=== PATIENT | female | born 1970 | race Asian ===

== ENCOUNTER 2016-07-11 22:28 | Emergency (ER) | payer SELFPAY ==
[~2016-07-11] VITALS: Ht 165.1 cm; Wt 81.5 kg
[~2016-07-11 22:28] MED LIST: ATEN50TA PO; GLYB5TAB PO; IBUP-1542 PO; LOSA50TA6 PO; MECL25TA2 PO; MTF1000T PO; NITR-58 PO; PHEN-537 PO; PHEN-538 PO; SIME80TA PO
[2016-07-11 23:12] VITALS: Ht 165.1 cm; Wt 81.5 kg
== END 2016-07-12 00:20 | disposition left against medical advice (07) ==
LOC: FTE 22:28
DX: Z53.21 Procedure and treatment not carried out due to patient leaving prior to being seen by health care provider (principal)

== ENCOUNTER 2016-07-23 04:38 | Emergency (ER) | payer OTHER ==
[2015-03-05 14:59] VITALS: TEMP 98.2
[2016-01-13 08:23] VITALS: BP 167/72; PULSE 72; RESP 18
[~2016-07-23] VITALS: Ht 165.1 cm; Wt 81.8 kg
[2016-07-23 04:41] VITALS: Ht 165.1 cm; Wt 81.8 kg
[2016-07-23 05:22] LABS: URINE BLOOD (Dip) POC 2+ (NEGATIVE)
--- NOTE | 2016-07-23 05:26 | ERD ---
ER Documentation Chief Complaint Date/Time DATE: 07/23/16 TIME: 05:24 Chief Complaint PAINFUL AND BURNING URINATION X 1 DAY HPI 46-year-old female presents here in emergency department for complaint of dysuria, urinary urgency and frequency started today. Patient is complaining of pain upon urination, burning pain, 4/10 scale, not better or worse with anything. Patient denies any vaginal itching or vaginal discharge. Patient denies any flank pain. Patient denies abdominal pain. Patient denies any fever or chills. ROS All systems reviewed and are negative except as per history of present illness. Medications Home Meds Active Scripts Phenazopyridine Hcl* (Pyridium*) 200 Mg Tab, 200 MG PO TID Y for URINARY PAIN, # 6 TAB Prov:TERE GONZALES NP 07/23/16 Ciprofloxacin Hcl* (Ciprofloxacin Hcl*) 500 Mg Tablet, 500 MG PO BID for 10 Days , TAB Prov:TERE GONZALES NP 07/23/16 Phenazopyridine Hcl* (Pyridium*) 200 Mg Tab, 200 MG PO TID Y for URINARY PAIN, # 6 TAB Prov:MARIAN LAGUNAS MD 01/13/16 Nitrofurantoin Monohyd Macrocr* (Macrobid*) 100 Mg Capsr, 100 MG PO BID for 7 Days, CAP Prov:MARIAN LAGUNAS MD 01/13/16 Ibuprofen* (Motrin*) 600 Mg Tab, 600 MG PO Q6, #20 TAB Prov:SAIGE SALEH MD 03/05/15 Simethicone* (Anti-Gas/80*) 80 Mg Tab.chew, 80 MG PO Q6H Y for DISTENSION/GAS/ BLOATING for 10 Days, TAB.CHEW Prov:SCOTT BROWN DO 12/25/14 Phenazopyridine Hcl* (Pyridium*) 100 Mg Tab, 100 MG PO TID Y for PAIN LEVEL 1-5 , #8 TAB Prov:SCOTT BROWN DO 12/25/14 Nitrofurantoin Monohyd Macrocr* (Macrobid*) 100 Mg Capsr, 100 MG PO HS for 7 Days Prov:MICHAELA MURGUIA MD 12/21/14 Meclizine Hcl* (Antivert*) 25 Mg Tablet, 25 MG PO Q6H Y for ANXIETY, #20 TAB Prov:MICHAELA MURGUIA MD 12/21/14 Reported Medications Metformin* (Glucophage*) 1,000 Mg Tablet, 1000 MG PO BID, TAB 07/01/14 Losartan Potassium* (Losartan Potassium*) 50 Mg Tablet, 50 MG PO BID, TAB 07/01/14 Atenolol* (Atenolol*) 50 Mg Tablet, 50 MG PO DAILY, TAB 07/01/14 Glyburide* (Diabeta*) 5 Mg Tablet, 5 MG PO BID 11/01/10 Allergies Allergies: Coded Allergies: No Known Allergies (Verified Allergy, Mild, 03/05/15) PMhx/Soc History of Surgery: Yes (cholecystectomy) Anesthesia Reaction: No Hx Neurological Disorder: No Hx Respiratory Disorders: No Hx Cardiac Disorders: No Hx Psychiatric Problems: No Hx Miscellaneous Medical Probl: Yes (HTN, DM II) Hx Alcohol Use: No Hx Substance Use: No Hx Tobacco Use: No Smoking Status: Never smoker FmHx Family History: No coronary disease, No diabetes, No other Physical Exam Vitals Vital Signs Date Time Temp Pulse Resp B/P Pulse Ox O2 Delivery O2 Flow Rate FiO2 07/23/16 04:41 97.2 84 20 189/88 100 Physical Exam GENERAL: The patient is well developed and appropriate for usual state of health, in no apparent distress. CHEST: Clear to auscultation bilaterally. There are no rales, wheezes or rhonchi. HEART: Regular rate and rhythm. No murmurs, clicks, rubs or gallops. No S3 or S4. ABDOMEN: Soft, nontender and nondistended. Good bowel sounds. No rebound or guarding. No gross peritonitis. No gross organomegaly or masses. No Andersen sign or McBurney point tenderness. BACK: No midline or flank tenderness. EXTREMITIES: Equal pulses bilaterally. There is no peripheral clubbing, cyanosis or edema. No focal swelling or erythema. Full range of motion. Grossly neurovascularly intact. NEURO: Alert and oriented. Cranial nerves 2-12 intact. Motor strength in all 4 extremities with 5/5 strength. Sensation grossly intact. Normal speech and gait. SKIN: There is no apparent rash or petechia. The skin is warm and dry. HEMATOLOGIC AND LYMPHATIC: There is no evidence of excessive bruising or lymphedema. No gross cervical, axillary, or inguinal lymphadenopathy. Results 24 hrs Laboratory Tests Test 07/23/16 05:25 Bedside Urine Blood 2+ Bedside Urine Glucose (UA) 0.1% Bedside Urine Ketones (LAB) Negative Bedside Urine Leukocyte Esterase (L 1+ Bedside Urine Nitrite (LAB) Negative Bedside Urine Protein (LAB) 1+ Bedside Urine pH (LAB) 6.5 Current Medications Medications (Trade) Dose Ordered Sig/Avel Route PRN Reason Start Time Stop Time Status Last Admin Dose Admin Phenazopyridine HCl (Pyridium) 200 mg ONCE ONCE PO 07/23/16 06:00 07/23/16 06:01 UNV Procedures/MDM Medical Decision Making: Patients symptoms are consistent with urinary tract infection. There is low suspicion for pyelonephritis. There is low suspicion for abdominal emergencies at this time. Patients abdominal exam is normal. There is low suspicion for sepsis. Patient appears well and is hemodynamically stable. Prescription: Ciprofloxacin, Pyridium, is advised to follow-up with primary care doctor in 3 days for reevaluation symptoms. Patient is advised to return to emergency department for any worsening symptoms. Departure Diagnosis: Primary Impression: Cystitis Condition: Stable Patient Instructions: Cystitis TERE GONZALES NP Jul 23, 2016 05:26
[2016-07-23] MEDS ORDERED: CIPR500T4 PO (05:31)
[2016-07-23] MEDS ORDERED: PHEN-538 PO (05:31)
[2016-07-23] MEDS ORDERED: PHENAZOPYRIDINE 100 MG TAB PO ONE (06:00)
== END 2016-07-23 05:59 | disposition home or self-care (01) ==
LOC: FTE 04:38
DX: N30.90 Cystitis, unspecified without hematuria (principal); I10 Essential (primary) hypertension; E11.9 Type 2 diabetes mellitus without complications; Z79.84 Long term (current) use of oral hypoglycemic drugs
CPT/HCPCS: 81003; Z7502; Z7610; 99283

== ENCOUNTER 2016-10-10 21:15 | Emergency (ER) | payer OTHER ==
[~2016-10-10] VITALS: Ht 165.1 cm; Wt 84.0 kg
[~2016-10-10 21:15] MED LIST changes: +CIPR500T4 PO
[2016-10-10 21:30] VITALS: Ht 165.1 cm; Wt 84.0 kg
[2016-10-10] MEDS ORDERED: morphine 2 MG INJ IV STA (22:20)
[2016-10-10] MEDS ORDERED: SOD CHLORIDE 0.9% 1,000 ML IV STA (22:20)
--- NOTE | 2016-10-10 22:24 | ERD ---
ER Documentation Chief Complaint Date/Time DATE: 10/10/16 TIME: 22:21 Chief Complaint CWP with epigastric pain. radiating to the back left side. HPI This 46-year-old female presents with epigastric pain that she says is not particularly worse in her chest. Her main pain is bilateral lower back pain/ flank with burning on urination. She does have some suprapubic pain without any increase of pain when she pushes on it. She denies fevers and chills. He denies shortness of breath. She does frequently get urinary tract infections. ROS All systems reviewed and are negative except as per history of present illness. Medications Home Meds Active Scripts Phenazopyridine Hcl* (Pyridium*) 200 Mg Tab, 200 MG PO TID Y for URINARY PAIN, # 6 TAB Prov:TERE GONZALES NP 07/23/16 Ciprofloxacin Hcl* (Ciprofloxacin Hcl*) 500 Mg Tablet, 500 MG PO BID for 10 Days , TAB Prov:TERE GONZALES NP 07/23/16 Phenazopyridine Hcl* (Pyridium*) 200 Mg Tab, 200 MG PO TID Y for URINARY PAIN, # 6 TAB Prov:MARIAN LAGUNAS MD 01/13/16 Nitrofurantoin Monohyd Macrocr* (Macrobid*) 100 Mg Capsr, 100 MG PO BID for 7 Days, CAP Prov:MARIAN LAGUNAS MD 01/13/16 Ibuprofen* (Motrin*) 600 Mg Tab, 600 MG PO Q6, #20 TAB Prov:SAIGE SALEH MD 03/05/15 Simethicone* (Anti-Gas/80*) 80 Mg Tab.chew, 80 MG PO Q6H Y for DISTENSION/GAS/ BLOATING for 10 Days, TAB.CHEW Prov:SCOTT BROWN DO 12/25/14 Phenazopyridine Hcl* (Pyridium*) 100 Mg Tab, 100 MG PO TID Y for PAIN LEVEL 1-5 , #8 TAB Prov:SCOTT BROWN DO 12/25/14 Nitrofurantoin Monohyd Macrocr* (Macrobid*) 100 Mg Capsr, 100 MG PO HS for 7 Days Prov:MICHAELA MURGUIA MD 12/21/14 Meclizine Hcl* (Antivert*) 25 Mg Tablet, 25 MG PO Q6H Y for ANXIETY, #20 TAB Prov:MICHAELA MURGUIA MD 12/21/14 Reported Medications Metformin* (Glucophage*) 1,000 Mg Tablet, 1000 MG PO BID, TAB 07/01/14 Losartan Potassium* (Losartan Potassium*) 50 Mg Tablet, 50 MG PO BID, TAB 07/01/14 Atenolol* (Atenolol*) 50 Mg Tablet, 50 MG PO DAILY, TAB 07/01/14 Glyburide* (Diabeta*) 5 Mg Tablet, 5 MG PO BID 11/01/10 Allergies Allergies: Coded Allergies: No Known Allergies (Unverified Allergy, Mild, 10/10/16) PMhx/Soc History of Surgery: Yes (cholecystectomy) Anesthesia Reaction: No Hx Neurological Disorder: No Hx Respiratory Disorders: No Hx Cardiac Disorders: No Hx Psychiatric Problems: No Hx Miscellaneous Medical Probl: Yes (HTN, DM II) Hx Alcohol Use: No Hx Substance Use: No Hx Tobacco Use: No Smoking Status: Never smoker Physical Exam Vitals Vital Signs Date Time Temp Pulse Resp B/P Pulse Ox O2 Delivery O2 Flow Rate FiO2 10/10/16 21:30 98.1 78 20 200/92 100 Physical Exam Const: [] No distress, smiling during history giving Head: Atraumatic Eyes: Normal Conjunctiva ENT: Normal External Ears, Nose and Mouth. Neck: Full range of motion..~ No meningismus. Resp: Clear to auscultation bilaterally Cardio: Regular rate and rhythm, no murmurs Abd: Soft, no palpable tenderness in any quadrant,, non distended. Normal bowel sounds Skin: No petechiae or rashes Back: No midline or flank tenderness, mild paraspinal bilateral back muscle tenderness and spasm Ext: No cyanosis, or edema Neur: Awake and alert and oriented 3, no focal deficits Psych: Normal Mood and Affect LUIS BRAR DO October 10, 2016 22:24
[2016-10-10] MEDS ORDERED: ACET-141 PO (22:26)
[2016-10-10] MEDS ORDERED: FLUT16SP17 NASAL (22:26)
[2016-10-10] MEDS ORDERED: OMEP20CA16 PO (22:26)
[2016-10-10 22:54] LABS: ADD UMIC NO; URINE BILIRUBIN (Dip) NEGATIVE (NEGATIVE); URINE BLOOD (Dip) NEGATIVE (NEGATIVE); URINE COLOR LT. YELLOW (YELLOW); URINE KETONES (Dip) NEGATIVE (NEGATIVE); URINE LEUKOCYTE ESTERASE (Dip) NEGATIVE (NEGATIVE); URINE NITRITE (Dip) NEGATIVE (NEGATIVE); URINE TOTAL PROTEIN (Dip) NEGATIVE (NEGATIVE); URINE UROBILINOGEN (Dip) 0.2 E.U./dL (0.1-1.0)
[2016-10-10] MEDS ORDERED: IBUPROFEN 600 MG TAB PO ONE (23:00)
[2016-10-10] MEDS ORDERED: HYDROCODONE/APAP (5/325) TAB PO ONE (23:00)
[2016-10-10 23:04] LABS: ADD SCAN DIFF NO
[2016-10-10 23:06] LABS: BASOPHILS % 0.2 % (0.0-2.0); EOSINOPHILS # 0.3 10^3/ul (0.0-0.5); EOSINOPHILS % 2.4 % (0.0-7.0); HEMATOCRIT 31.8 % (37.0-47.0); HEMOGLOBIN 10.8 g/dl (12.0-16.0); LYMPHOCYTES % 35.9 % (15.0-51.0); MEAN CORPUSCULAR HEMOGLOBIN 27.3 pg (29.0-33.0); MEAN CORPUSCULAR VOLUME 80.5 fl (82.0-101.0); MONOCYTES % 9.1 % (0.0-11.0); NEUTROPHIL # 5.8 10^3/ul (1.6-7.5); NEUTROPHILS % 52.1 % (39.0-77.0); PLATELET COUNT 355 10^3/UL (140-415); RED BLOOD COUNT 3.95 10^6/ul (4.20-5.40); RED CELL DISTRIBUTION WIDTH 13.1 % (11.5-14.5); WHITE BLOOD COUNT 11.1 10^3/ul (4.8-10.8)
[2016-10-10 23:21] LABS: ALBUMIN 4.4 g/dl (3.3-4.9)
[2016-10-10 23:22] LABS: POTASSIUM 3.3 mmol/L (3.5-5.1)
[2016-10-10 23:24] LABS: ALBUMIN/GLOBULIN RATIO 1.33; BILIRUBIN,INDIRECT 0.4 mg/dl (0-1.1); BILIRUBIN,TOTAL 0.4 mg/dl (0.2-1.3); CREATININE 0.9 mg/dl (0.44-1.00); TOTAL PROTEIN 7.7 g/dl (6.1-8.1)
[2016-10-10 23:25] LABS: CALCIUM 9.7 mg/dl (8.4-10.2)
--- NOTE | 2016-10-11 00:14 | RADRPT ---
PROCEDURE: XR Abdomen. CLINICAL INDICATION: Abdominal pain. TECHNIQUE: 3 frontal views of the abdomen. COMPARISON: None. FINDINGS: The bowel gas pattern is unremarkable. Cholecystectomy clips are present. There is no bowel obstru ction or free air. There is no organomegaly. There is no abnormal calcification. The osseous stru ctures are unremarkable. IMPRESSION: Unremarkable bowel gas pattern. Status post cholecystectomy. .Fabricio Grubbs MD, Date Time Electronically viewed and signed by .Fabricio Grubbs MD, MD on 10/11/2016 00:13 .T/
[2016-10-11 01:37] VITALS: BP 105/73; PULSE 72; RESP 18
[2016-10-11 01:37] LABS: BACTERIA,URINE RARE; SQUAMOUS EPITHELIAL CELL,UR RARE; URINE RBCS 0-2 /HPF (0)
[2016-10-11] MEDS ORDERED: NAPR-688 PO (02:23)
[2016-10-11] MEDS ORDERED: RANI150T9 PO (02:23)
== END 2016-10-11 02:35 | disposition home or self-care (01) ==
LOC: E/R 21:15
DX: K21.9 Gastro-esophageal reflux disease without esophagitis (principal); R10.13 Epigastric pain; I10 Essential (primary) hypertension; E11.9 Type 2 diabetes mellitus without complications; Z79.84 Long term (current) use of oral hypoglycemic drugs
CPT/HCPCS: 74010; 80053; 81001; 81003; 83690; 85025; 93005; J2270; J7030; Z7610; 36415

== ENCOUNTER 2017-01-02 14:32 | Emergency (ER) | payer OTHER ==
[~2017-01-02] VITALS: Wt 83.5 kg
[~2017-01-02 14:32] MED LIST changes: +ACET-141 PO; -CIPR500T4 PO; +FLUT16SP17 NASAL; +NAPR-688 PO; -NITR-58 PO; +OMEP20CA16 PO; -PHEN-537 PO; -PHEN-538 PO; +RANI150T9 PO; -SIME80TA PO
[2017-01-02] MEDS ORDERED: HYDROCODONE/APAP (5/325) TAB PO ONE (15:00)
[2017-01-02] MEDS ORDERED: PHEN-537 PO (15:04)
[2017-01-02] MEDS ORDERED: NITR-58 PO (15:04)
--- NOTE | 2017-01-02 15:13 | ERD ---
ER Documentation Chief Complaint Date/Time DATE: 01/02/17 TIME: 15:10 Chief Complaint PAIN WITH URINATION HPI 46 year old female comes in with burning with urination, urgency and frequency x 1 day. She has foul-smelling urine, burning when she pees. She has not had any retention, fevers, chills, nausea vomiting, hematuria or flank pain. ROS All systems reviewed and are negative except as per history of present illness. Medications Home Meds Active Scripts Phenazopyridine Hcl* (Pyridium*) 100 Mg Tab, 100 MG PO TID, #8 TAB Prov:JONATHON WILD PA-C 01/02/17 Nitrofurantoin Monohyd Macrocr* (Macrobid*) 100 Mg Capsr, 100 MG PO BID for 7 Days, CAP Prov:JONATHON WILD PA-C 01/02/17 Ranitidine Hcl* (Zantac*) 150 Mg Tablet, 150 MG PO BID Y for EPIGASTRIC PAIN, # 30 TAB Prov:LUIS BRAR DO 10/11/16 Naproxen* (Naproxen*) 500 Mg Tablet, 500 MG PO BID Y for PAIN, #20 TAB Prov:LUIS BRAR DO 10/11/16 Ibuprofen* (Motrin*) 600 Mg Tab, 600 MG PO Q6, #20 TAB Prov:SAIGE SALEH MD 03/05/15 Meclizine Hcl* (Antivert*) 25 Mg Tablet, 25 MG PO Q6H Y for ANXIETY, #20 TAB Prov:MICHAELA MURGUIA MD 12/21/14 Reported Medications Fluticasone Propionate* (Fluticasone Propionate* Nasal) 50 Mcg/[place] - 16 Gm [place].susp, 2 SPRAYS NASAL DAILY, #1 BOTTLE TO EACH NOSTRIL 10/10/16 Acetaminophen* (Acetaminophen*) 500 MG Extra Strength Tablet, 500 MG PO Q4H Y for PAIN AND OR ELEVATED TEMP, TAB 10/10/16 Omeprazole* (Omeprazole*) 20 Mg Capsule.dr, 20 MG PO DAILY, #30 CAP 10/10/16 Metformin* (Glucophage*) 1,000 Mg Tablet, 1000 MG PO BID, TAB 07/01/14 Losartan Potassium* (Losartan Potassium*) 50 Mg Tablet, 50 MG PO BID, TAB 07/01/14 Atenolol* (Atenolol*) 50 Mg Tablet, 50 MG PO DAILY, TAB 07/01/14 Glyburide* (Diabeta*) 5 Mg Tablet, 5 MG PO BID 11/01/10 Allergies Allergies: Coded Allergies: No Known Allergies (Unverified Allergy, Mild, 01/02/17) PMhx/Soc History of Surgery: Yes (cholecystectomy) Anesthesia Reaction: No Hx Neurological Disorder: No Hx Respiratory Disorders: No Hx Cardiac Disorders: No Hx Psychiatric Problems: No Hx Miscellaneous Medical Probl: Yes (HTN, DM II) Hx Alcohol Use: No Hx Substance Use: No Hx Tobacco Use: No Smoking Status: Never smoker Physical Exam Vitals Vital Signs Date Time Temp Pulse Resp B/P Pulse Ox O2 Delivery O2 Flow Rate FiO2 01/02/17 15:33 98.8 75 16 168/76 100 Room Air 01/02/17 14:34 98.2 89 17 195/88 100 Physical Exam General: Well-developed, well-nourished. The patient appears in no acute distress. HEENT: Head is normocephalic, atraumatic. No scleral icterus. Neck: Supple. Nontender. Lungs: Clear to auscultation. Normal air movement. Heart: Regular rate and rhythm. S1 and S2 are normal. No murmurs, gallops, or rubs. Abdomen: Soft, nontender, nondistended. Bowel sounds are normoactive. No CVA tenderness Extremities: No clubbing or cyanosis. Normal pulses. Moving extremities x 4. No weakness. Neurologic: Alert and oriented 3. No focal deficits. Skin: Normal turgor. No rash or lesions. Results 24 hrs Current Medications Medications (Trade) Dose Ordered Sig/Avel Route PRN Reason Start Time Stop Time Status Last Admin Dose Admin Acetaminophen/ Hydrocodone Bitart ([place] (5/325)) 1 tab ONCE ONCE PO 01/02/17 15:00 01/02/17 15:01 DC 01/02/17 14:59 Nitrofurantoin Macrocrystals (Macrobid) 100 mg ONCE ONCE PO 01/02/17 15:30 01/02/17 15:31 DC 01/02/17 15:10 Urine dip results, from the machine (unable to record on EMR): Glucose 2+, ketones negative, blood 3+, pH 5.5, protein 1+, nitrate negative, leukocyte 1+ Procedures/MDM 46-year-old female presents with a urinary tract infection, consistent with cystitis. She has no systemic complaints, signs of kidney stone, pyelonephritis. Patient's blood pressure was elevated (>120/80) but appears stable without evidence of hypertension emergency or urgency. The patient was counseled about the risks of hypertension and urged to pursue outpatient monitoring and therapy within a week with their primary care physician. Departure Diagnosis: Primary Impression: UTI (urinary tract infection) Condition: Good Patient Instructions: Understanding Urinary Tract Infections (UTIs) Additional Instructions: Call your primary care doctor TOMORROW for an appointment during the next 1-2 days.See the doctor sooner or return here if your condition worsens before your appointment time. JONATHON WILD PA-C Jan 02, 2017 15:13
[2017-01-02] MEDS ORDERED: NITROFURANTOIN (SR) 100 MG CAP PO ONE (15:30)
[2017-01-02 15:33] VITALS: BP 168/76; PULSE 75; RESP 16; TEMP 98.8
[2017-01-03] MEDS ORDERED: BISM262O23 PO (20:26)
[2017-01-03] MEDS ORDERED: ONDA8TAB14 PO (20:26)
== END 2017-01-02 15:35 | disposition home or self-care (01) ==
LOC: FTE 14:32
DX: N39.0 Urinary tract infection, site not specified (principal); I10 Essential (primary) hypertension; E11.9 Type 2 diabetes mellitus without complications; Z79.84 Long term (current) use of oral hypoglycemic drugs
CPT/HCPCS: Z7502; Z7610; 99283

== ENCOUNTER 2017-01-03 18:57 | Emergency (ER) | payer OTHER ==
[~2017-01-03] VITALS: Ht 167.6 cm; Wt 81.0 kg
[~2017-01-03 18:57] MED LIST changes: +NITR-58 PO; +PHEN-537 PO
[2017-01-03 19:04] VITALS: Ht 167.6 cm; Wt 81.0 kg
[2017-01-03] MEDS ORDERED: ONDANSETRON (ODT) 4 MG TAB ODT STA (19:45)
[2017-01-03 20:10] LABS: ADD UMIC YES; UR ASCORBIC ACID NEGATIVE (NEGATIVE); UR BILIRUBIN (Dip) NEGATIVE (NEGATIVE); UR BLOOD (Dip) NEGATIVE (NEGATIVE); UR CLARITY CLEAR (CLEAR); UR COLOR AMBER (YELLOW); UR GLUCOSE (Dip) 3+ mg/dL (NEGATIVE); UR KETONES (Dip) TRACE mg/dL (NEGATIVE); UR LEUKOCYTE ESTERASE (Dip) NEGATIVE Leu/ul (NEGATIVE); UR NITRITE (Dip) POSITIVE (NEGATIVE); UR RBC 0 /HPF (0-5); UR SPECIFIC GRAVITY (Dip) 1.009 (1.003-1.030); UR TOTAL PROTEIN (Dip) NEGATIVE (NEGATIVE); UR UROBILINOGEN (Dip) 1+ mg/dL (NEGATIVE)
[2017-01-03] MEDS ORDERED: SOD CHLORIDE 0.9% 1,000 ML IV STA (20:15)
--- NOTE | 2017-01-03 20:25 | ERD ---
ER Documentation Chief Complaint Date/Time DATE: 01/03/17 TIME: 20:22 Chief Complaint mid abd pain w/ diarrhea and vomiting x 2 days (SAIGE YAO MD) HPI This 46-year-old female presents with vomiting diarrhea since yesterday. He was seen here yesterday and diagnosed with UTI. She was prescribed Macrobid and Pyridium. She denies fevers the vomit is nonbilious nonbloody there is no blood or mucus in the diarrhea. She has some mild burning epigastric pain as well. There is no history of suspect food or foreign travel. (SAIGE YAO MD) ROS All systems reviewed and are negative except as per history of present illness. (SAIGE YAO MD) Medications Home Meds Active Scripts Bismuth Subsalicylate* (Pepto-Bismol*) 262 Mg/15 Ml Oral.susp, 15 ML PO Q3H Y for DIARRHEA for 4 Days, ML Prov:SAIGE YAO MD 01/03/17 Ondansetron (Ondansetron Odt) 8 Mg Tab.rapdis, 8 MG PO Q6H Y for NAUSEA AND/OR VOMITING, #8 TAB Prov:SAIGE YAO MD 01/03/17 Phenazopyridine Hcl* (Pyridium*) 100 Mg Tab, 100 MG PO TID, #8 TAB Prov:JONATHON WILD PA-C 01/02/17 Nitrofurantoin Monohyd Macrocr* (Macrobid*) 100 Mg Capsr, 100 MG PO BID for 7 Days, CAP Prov:JONATHON WILD PA-C 01/02/17 Ranitidine Hcl* (Zantac*) 150 Mg Tablet, 150 MG PO BID Y for EPIGASTRIC PAIN, # 30 TAB Prov:LUIS BRAR DO 10/11/16 Naproxen* (Naproxen*) 500 Mg Tablet, 500 MG PO BID Y for PAIN, #20 TAB Prov:LUIS BRAR DO 10/11/16 Ibuprofen* (Motrin*) 600 Mg Tab, 600 MG PO Q6, #20 TAB Prov:SAIGE YAO MD 03/05/15 Meclizine Hcl* (Antivert*) 25 Mg Tablet, 25 MG PO Q6H Y for ANXIETY, #20 TAB Prov:MICHAELA MURGUIA MD 12/21/14 Reported Medications Fluticasone Propionate* (Fluticasone Propionate* Nasal) 50 Mcg/[place] - 16 Gm [place].susp, 2 SPRAYS NASAL DAILY, #1 BOTTLE TO EACH NOSTRIL 10/10/16 Acetaminophen* (Acetaminophen*) 500 MG Extra Strength Tablet, 500 MG PO Q4H Y for PAIN AND OR ELEVATED TEMP, TAB 10/10/16 Omeprazole* (Omeprazole*) 20 Mg Capsule.dr, 20 MG PO DAILY, #30 CAP 10/10/16 Metformin* (Glucophage*) 1,000 Mg Tablet, 1000 MG PO BID, TAB 07/01/14 Losartan Potassium* (Losartan Potassium*) 50 Mg Tablet, 50 MG PO BID, TAB 07/01/14 Atenolol* (Atenolol*) 50 Mg Tablet, 50 MG PO DAILY, TAB 07/01/14 Glyburide* (Diabeta*) 5 Mg Tablet, 5 MG PO BID 11/01/10 Allergies Allergies: Coded Allergies: No Known Allergies (Unverified Allergy, Mild, 01/03/17) PMhx/Soc History of Surgery: Yes (cholecystectomy) Anesthesia Reaction: No Hx Neurological Disorder: No Hx Respiratory Disorders: No Hx Cardiac Disorders: No Hx Psychiatric Problems: No Hx Miscellaneous Medical Probl: Yes (HTN, DM II) Hx Alcohol Use: No Hx Substance Use: No Hx Tobacco Use: No Smoking Status: Never smoker (SAIGE YAO MD) Physical Exam Vitals Vital Signs Date Time Temp Pulse Resp B/P Pulse Ox O2 Delivery O2 Flow Rate FiO2 01/03/17 19:04 98.7 80 20 147/65 100 (JOHNIE SARABIA-C) Physical Exam Const: [] Letter, [id number] per Head: Atraumatic Eyes: Normal Conjunctiva ENT: Normal External Ears, Nose and Mouth. Neck: Full range of motion..~ No meningismus. Resp: Clear to auscultation bilaterally Cardio: Regular rate and rhythm, no murmurs Abd: Soft, non tender, non distended. Normal bowel sounds Skin: No petechiae or rashes Back: No midline or flank tenderness Ext: No cyanosis, or edema Neur: Awake and alert Psych: Normal Mood and Affect (ASIGE YAO MD) Result Diagram: 01/03/17201901/03/17 2225 Results 24 hrs Laboratory Tests Test 01/03/17 19:50 01/03/17 20:20 01/03/17 22:25 Urine Color STEVEN Urine Clarity CLEAR Urine pH 7.0 Urine Specific [place] 1.009 Urine Ketones TRACEmg/dL Urine Nitrite POSITIVEmg/dL Urine Bilirubin NEGATIVEmg/dL Urine Urobilinogen 1+mg/dL Urine Leukocyte Esterase NEGATIVELeu/ul Urine Microscopic RBC 0/HPF Urine Microscopic WBC 2/HPF Urine Hemoglobin NEGATIVEmg/dL Urine Glucose 3+mg/dL Urine Total Protein NEGATIVEmg/dl White Blood Count 11.810^3/ul Red Blood Count 3.9610^6/ul Hemoglobin 10.4g/dl Hematocrit 30.7% Mean Corpuscular Volume 77.5fl Mean Corpuscular Hemoglobin 26.3pg Mean Corpuscular Hemoglobin Concent 33.9g/dl Red Cell Distribution Width 12.9% Platelet Count 85851^3/UL Mean Platelet Volume 11.7fl Neutrophils % 65.9% Lymphocytes % 24.7% Monocytes % 8.1% Eosinophils % 0.7% Basophils % 0.1% Nucleated Red Blood Cells % 0.0/100WBC Neutrophils # 7.810^3/ul Lymphocytes # 2.910^3/ul Monocytes # 1.010^3/ul Eosinophils # 0.110^3/ul Basophils # 0.010^3/ul Nucleated Red Blood Cells # 0.010^3/ul Sodium Level 115mmol/L 121mmol/L Potassium Level 3.2mmol/L 3.0mmol/L Chloride Level 73mmol/L 83mmol/L Carbon Dioxide Level 27mmol/L 25mmol/L Anion Gap 18 16 Blood Urea Nitrogen 10mg/dl 9mg/dl Creatinine 0.83mg/dl 0.76mg/dl Glucose Level 255mg/dl 219mg/dl Calcium Level 9.5mg/dl 8.8mg/dl Total Bilirubin 0.7mg/dl Direct Bilirubin 0.00mg/dl Indirect Bilirubin 0.7mg/dl Aspartate Amino Transf (AST/SGOT) 18IU/L Alanine Aminotransferase (ALT/SGPT) 33IU/L Alkaline Phosphatase 115IU/L Total Protein 8.4g/dl Albumin 4.7g/dl Globulin 3.70g/dl Albumin/Globulin Ratio 1.27 Lipase 135U/L Current Medications Medications (Trade) Dose Ordered Sig/Avel Route PRN Reason Start Time Stop Time Status Last Admin Dose Admin Ondansetron HCl 8 mg 8 mg ONCE STAT ODT 01/03/17 19:45 01/03/17 19:46 DC 01/03/17 19:51 Sodium Chloride (NS) 1,000 ml @ 1,000 mls/hr Q1H STAT IV 01/03/17 20:15 01/03/17 21:14 DC 01/03/17 20:33 Famotidine 20 mg 20 mg ONCE ONCE PO 01/03/17 20:30 01/03/17 20:31 DC 01/03/17 20:33 Sodium Chloride (NS) 1,000 ml @ 1,000 mls/hr Q1H ONCE IV 01/03/17 22:00 01/03/17 22:59 DC 01/03/17 21:54 (JOHNIE SARABIA PA-C) Procedures/MDM Urine shows trace ketones positive nitrites and leukocytes. There is 3+ glucose. Patient is given Zofran 8 mg by mouth. Patient presents with vomiting diarrhea of one days duration. Given the findings of ketones and history of diabetes 90 was obtained and patient was given 1 L normal saline IV. CBC and CMP pending and was signed out to ELOISA Sarabia and supervising ER physician. Patient was stable and ambulatory upon last evaluation. Further evaluation and treatment will pending ER course. (SAIGE YAO MD) ED COURSE: The patient was stable throughout ED course. I kept the patient and/or family informed of laboratory and diagnostic imaging results throughout the ED course. She was signed out to me by Dr. Yao, pending blood work. Patient's MEDICAL DECISION MAKING: Patient is a 46-year-old female presents emergency room with vomiting and diarrhea which started today. Patient was seen here yesterday diagnosed with UTI. Vital signs were reviewed. Patient is afebrile. Patient was not hypoxic. She was noted to have a white count of 11.8, hemoglobin of 10.6, hematocrit of 30.7. Patient's sodium was initially noted to be 115. Patient's potassium was noted to be 3.2, glucose of 219, sodium of 115. Urine did show 3+ glucose, trace ketones and positive nitrates. I discussed these findings with my supervising physician Dr. Macdonald who advised me to give the patient a second liter of fluids. Repeat BMP was obtained. Patient's sodium was noted to increase to 121. Dr. Macdonald advised me to discharge the patient if her sodium was above 120. I discussed the patient's blood work findings with the patient and her son. Patient did feel that her symptoms had improved after 2 L of fluids. Patient requested to go home. At this time, patient presentation is most consistent with abdominal pain, nausea, vomiting, diarrhea, hyponatremia. Low suspicion for DKA. Patient will be discharged home per Dr. Yao's instructions with a prescription for Zofran and Pepto-Bismol. DISCHARGE: At this time, patient is stable for discharge and outpatient management. She was provided with a copy of all imaging studies and blood work obtained today. Patient was advised to drink plenty of fluids. I have instructed the patient to follow-up with his/her primary care physician in 1-2 days. I have discussed with the patient the possibility of needing to see a specialist for further workup and imaging studies if symptoms persist. I have instructed the patient to promptly return to the ER for any new or worsening symptoms including increased pain, fever, nausea, vomiting, weakness or LOC. The patient and/or family expressed understanding of and agreement with this plan. All questions were answered. Home care instructions were provided. Disclaimer: Inadvertent spelling and grammatical errors are likely due to EHR/ dictation software use and do not reflect on the overall quality of patient care. Also, please note that the electronic time recorded on this note does not necessarily reflect the actual time of the patient encounter. (JOHNIE SARABIA PA-C) Departure Diagnosis: Primary Impression: Abdominal pain Abdominal location: epigastric Qualified Code: R10.13 - Epigastric pain Additional Impressions: Vomiting and diarrhea Hyponatremia Condition: Stable SAIGE YAO MD Jan 03, 2017 20:25 JOHNIE SARABIA PA-C Jan 03, 2017 23:52
[2017-01-03] MEDS ORDERED: BISM262O23 PO (20:26)
[2017-01-03] MEDS ORDERED: ONDA8TAB14 PO (20:26)
[2017-01-03] MEDS ORDERED: FAMOTIDINE 20 MG TAB PO ONE (20:30)
[2017-01-03 21:09] LABS: BASOPHILS % 0.1 % (0.0-2.0); EOSINOPHILS # 0.1 10^3/ul (0.0-0.5); EOSINOPHILS % 0.7 % (0.0-7.0); HEMATOCRIT 30.7 % (37.0-47.0); HEMOGLOBIN 10.4 g/dl (12.0-16.0); LYMPHOCYTES # 2.9 10^3/ul (0.8-2.9); LYMPHOCYTES % 24.7 % (15.0-51.0); MEAN CORPUSCULAR HEMOGLOBIN 26.3 pg (29.0-33.0); MEAN CORPUSCULAR HGB CONC 33.9 g/dl (32.0-37.0); MEAN CORPUSCULAR VOLUME 77.5 fl (82.0-101.0); MEAN PLATELET VOLUME 11.7 fl (7.4-10.4); MONOCYTES % 8.1 % (0.0-11.0); NEUTROPHIL # 7.8 10^3/ul (1.6-7.5); NEUTROPHILS % 65.9 % (39.0-77.0); PLATELET COUNT 414 10^3/UL (140-415); RED BLOOD COUNT 3.96 10^6/ul (4.20-5.40); RED CELL DISTRIBUTION WIDTH 12.9 % (11.5-14.5); WHITE BLOOD COUNT 11.8 10^3/ul (4.8-10.8)
[2017-01-03 21:28] LABS: ALBUMIN 4.7 g/dl (3.3-4.9); ALBUMIN/GLOBULIN RATIO 1.27; BILIRUBIN,INDIRECT 0.7 mg/dl (0-1.1); BILIRUBIN,TOTAL 0.7 mg/dl (0.2-1.3); CALCIUM 9.5 mg/dl (8.4-10.2); CREATININE 0.83 mg/dl (0.44-1.00); POTASSIUM 3.2 mmol/L (3.5-5.1); TOTAL PROTEIN 8.4 g/dl (6.1-8.1)
[2017-01-03] MEDS ORDERED: SOD CHLORIDE 0.9% 1,000 ML IV ONE (22:00)
[2017-01-03 23:30] LABS: CALCIUM 8.8 mg/dl (8.4-10.2); CREATININE 0.76 mg/dl (0.44-1.00)
[2017-01-03 23:51] VITALS: BP 152/72; PULSE 74; RESP 20; TEMP 98.1
== END 2017-01-03 23:51 | disposition home or self-care (01) ==
LOC: FTE 18:57
DX: R10.13 Epigastric pain (principal); R11.10 Vomiting, unspecified; R19.7 Diarrhea, unspecified; E87.1 Hypo-osmolality and hyponatremia; I10 Essential (primary) hypertension; E11.9 Type 2 diabetes mellitus without complications; Z79.84 Long term (current) use of oral hypoglycemic drugs
CPT/HCPCS: 36415; 80048; 80053; 81001; 83690; 85025; J7030; Z7502; Z7610

== ENCOUNTER 2017-01-13 05:57 | Emergency (ER) | payer OTHER ==
[~2017-01-13] VITALS: Ht 160 cm; Wt 82.0 kg
[~2017-01-13 05:57] MED LIST changes: +BISM262O23 PO; +ONDA8TAB14 PO
[2017-01-13 06:39] VITALS: Ht 160 cm; Wt 82.0 kg
[2017-01-13 08:28] LABS: ADD UMIC NO; UR ASCORBIC ACID NEGATIVE (NEGATIVE); UR BILIRUBIN (Dip) NEGATIVE (NEGATIVE); UR BLOOD (Dip) NEGATIVE (NEGATIVE); UR CLARITY CLEAR (CLEAR); UR COLOR COLORLESS (YELLOW); UR GLUCOSE (Dip) NEGATIVE (NEGATIVE); UR KETONES (Dip) NEGATIVE (NEGATIVE); UR LEUKOCYTE ESTERASE (Dip) NEGATIVE Leu/ul (NEGATIVE); UR NITRITE (Dip) NEGATIVE (NEGATIVE); UR SPECIFIC GRAVITY (Dip) 1.002 (1.003-1.030); UR TOTAL PROTEIN (Dip) NEGATIVE (NEGATIVE); UR UROBILINOGEN (Dip) NEGATIVE (NEGATIVE)
[2017-01-13] MEDS ORDERED: BENZ100C70 PO (08:38)
[2017-01-13] MEDS ORDERED: AZIT250T94 PO (08:38)
--- NOTE | 2017-01-13 08:45 | ERD ---
ER Documentation Chief Complaint Date/Time DATE: 01/13/17 TIME: 08:42 Chief Complaint dysuria x 3 days and cough x 5 days HPI 46-year-old female patient with a past medical history of recurrent urinary tract infections and diabetes presents to the ED complaining of dysuria that started 3 days and a dry cough started 5 days ago. Reports that she does not have any sick contacts. States that she was taking Macrobid for the last 10 days and it did not help with her dysuria. Reports her blood sugar this morning was 125. States that she takes metformin and glyburide. Reports that she has had a previous cholecystectomy. States her last menses was on December 20, 2016. Denies any vaginal bleeding, vaginal discharge, urgency, frequency, hematuria, abdominal pain, nausea, vomiting, diarrhea. ROS All systems reviewed and are negative except as per history of present illness. Medications Home Meds Active Scripts Benzonatate* (Tessalon Perle*) 100 Mg Capsule, 100 MG PO Q8H Y for COUGH, #20 CAP Prov:ENRIQUE MCKEON PA-C 01/13/17 Azithromycin* (Zithromax*) 250 Mg Tablet, 250 MG PO .ZPACK DIRECTED, #6 TAB TAKE 500 MG (2 TABS) THE FIRST DAY THEN 250 MG (1 TAB) DAYS 2-5 Prov:ENRIQUE MCKEON PA-C 01/13/17 Bismuth Subsalicylate* (Pepto-Bismol*) 262 Mg/15 Ml Oral.susp, 15 ML PO Q3H Y for DIARRHEA for 4 Days, ML Prov:SAIGE SALEH MD 01/03/17 Ondansetron (Ondansetron Odt) 8 Mg Tab.rapdis, 8 MG PO Q6H Y for NAUSEA AND/OR VOMITING, #8 TAB Prov:SAIGE SALEH MD 01/03/17 Phenazopyridine Hcl* (Pyridium*) 100 Mg Tab, 100 MG PO TID, #8 TAB Prov:JONATHON WILD PA-C 01/02/17 Nitrofurantoin Monohyd Macrocr* (Macrobid*) 100 Mg Capsr, 100 MG PO BID for 7 Days, CAP Prov:JONATHON WILD PA-C 01/02/17 Ranitidine Hcl* (Zantac*) 150 Mg Tablet, 150 MG PO BID Y for EPIGASTRIC PAIN, # 30 TAB Prov:LUIS BRAR DO 10/11/16 Naproxen* (Naproxen*) 500 Mg Tablet, 500 MG PO BID Y for PAIN, #20 TAB Prov:LUIS BRAR DO 10/11/16 Ibuprofen* (Motrin*) 600 Mg Tab, 600 MG PO Q6, #20 TAB Prov:SAIGE SALEH MD 03/05/15 Meclizine Hcl* (Antivert*) 25 Mg Tablet, 25 MG PO Q6H Y for ANXIETY, #20 TAB Prov:MICHAELA MURGUIA MD 12/21/14 Reported Medications Fluticasone Propionate* (Fluticasone Propionate* Nasal) 50 Mcg/[place] - 16 Gm [place].susp, 2 SPRAYS NASAL DAILY, #1 BOTTLE TO EACH NOSTRIL 10/10/16 Acetaminophen* (Acetaminophen*) 500 MG Extra Strength Tablet, 500 MG PO Q4H Y for PAIN AND OR ELEVATED TEMP, TAB 10/10/16 Omeprazole* (Omeprazole*) 20 Mg Capsule.dr, 20 MG PO DAILY, #30 CAP 10/10/16 Metformin* (Glucophage*) 1,000 Mg Tablet, 1000 MG PO BID, TAB 2 Losartan Potassium* (Losartan Potassium*) 50 Mg Tablet, 50 MG PO BID, TAB 215 Atenolol* (Atenolol*) 50 Mg Tablet, 50 MG PO DAILY, TAB 2 Glyburide* (Diabeta*) 5 Mg Tablet, 5 MG PO BID 11/01/10 Allergies Allergies: Coded Allergies: No Known Allergies (Unverified Allergy, Mild, 01/13/17) PMhx/Soc History of Surgery: Yes (cholecystectomy) Anesthesia Reaction: No Hx Neurological Disorder: No Hx Respiratory Disorders: No Hx Cardiac Disorders: No Hx Psychiatric Problems: No Hx Miscellaneous Medical Probl: Yes (HTN, DM II) Hx Alcohol Use: No Hx Substance Use: No Hx Tobacco Use: No Smoking Status: Never smoker Physical Exam Vitals Vital Signs Date Time Temp Pulse Resp B/P Pulse Ox O2 Delivery O2 Flow Rate FiO2 01/13/17 06:39 97.7 72 18 177/78 100 Physical Exam Const: [id number], well-nourished. In no acute distress. Head: Atraumatic, normocephalic Eyes: Normal Conjunctiva without injection. No purulent discharge. ENT: Normal external ear, nose. Moist oropharynx without tonsillar exudates. Non -erythematous pharynx. Uvula midline. No drooling. No trismus. Neck: No cervical midline tenderness. Full range of motion. No meningismus. No cervical lymphadenopathy. No JVD. Resp: Clear to auscultation bilaterally. No wheezing, rhonchi, rales, or crackles. No accessory muscle use. No retractions. Cardio: Regular rate and rhythm. No murmurs, rubs or gallops. Abd: Soft, nontender, non distended. Normal bowel sounds. No palpable masses. No rebound tenderness. No guarding. Negative McBurney's point. Negative psoas sign. Negative obturator sign. Skin: No petechiae or rashes Back: No midline tenderness. No CVA tenderness. Ext: No cyanosis, or edema. Neur: Awake and alert. Normal gait. Normal coordination. Psych: Normal Mood and Affect Results 24 hrs Laboratory Tests Test 01/13/17 07:03 Urine Color COLORLESS Urine Clarity CLEAR Urine pH 7.0 Urine Specific [place] 1.002 Urine Ketones NEGATIVEmg/dL Urine Nitrite NEGATIVEmg/dL Urine Bilirubin NEGATIVEmg/dL Urine Urobilinogen NEGATIVEmg/dL Urine Leukocyte Esterase NEGATIVELeu/ul Urine Hemoglobin NEGATIVEmg/dL Urine Glucose NEGATIVEmg/dL Urine Total Protein NEGATIVEmg/dl Procedures/MDM 46-year-old female patient with no significant past medical history presents to the ED complaining of dysuria that started 3 days ago as well as a dry cough that started 5 days ago. Patient is afebrile nontoxic appearing. Patient has normal vital signs. A urinalysis was ordered which showed no leukocyte esterase , nitrite, hematuria. Patient did not want a chest x-ray. Patient wanted to try outpatient medication for her cough. Patient likely has a viral upper respiratory infection versus bronchitis. She will be given prescription for Zithromax as well as Tessalon Perles. Patient's physical exam include lungs which were clear to auscultation and a normal pulse oximetry. There is a low suspicion for pneumonia, pneumothorax, mononucleosis, pulmonary embolism, epiglottitis, otitis media, otitis externa, viral/strep pharyngitis, sinusitis, peritonsillar abscess, mastoiditis, retropharyngeal abscess, meningitis, sepsis , acute abdomen or other emergent conditions. Fluids, rest, and symptomatic treatment are recommended for the management of patient's symptoms. Low suspicion for urinary tract infection. Pending urine culture. Low suspicion for gastritis, GERD, peptic ulcer disease, cholecystitis, choledocholithiasis, cholangitis, pancreatitis, appendicitis, bowel obstruction, ileus, volvulus, nephrolithiasis, pyelonephritis, hepatitis, perforated viscus, diverticulitis, abdominal hernia, acute abdomen, mesenteric ischemia or other emergent conditions. Discharge medications: Tessalon Perles, Zithromax Patient was instructed to return to the ED for any new or worsening symptoms. They should otherwise follow up with the primary care provider within 1-2 days for a referral to a urologist. The patient's questions were answered at the time of discharge. Patient understood and agreed with discharge management. Departure Diagnosis: Primary Impression: Dysuria Additional Impression: Cough Condition: Stable Patient Instructions: Bronchitis, Antiobiotic Treatment (Adult), Dysuria, Uncertain Cause (Adult) Referrals: ARYA CM MD, ANDY Y DULA, EUGENE MD [facility] YOU HAVE RECEIVED A MEDICAL SCREENING EXAM AND THE RESULTS INDICATE THAT YOU DO NOT HAVE A CONDITION THAT REQUIRES URGENT TREATMENT IN THE EMERGENCY DEPARTMENT. FURTHER EVALUATION AND TREATMENT OF YOUR CONDITION CAN WAIT UNTIL YOU ARE SEEN IN YOUR DOCTORS OFFICE WITHIN THE NEXT 1-2 DAYS. IT IS YOUR RESPONSIBILITY TO MAKE AN APPOINTMENT FOR FOLOW-UP CARE. IF YOU HAVE A PRIMARY DOCTOR --you should call your primary doctor and schedule an appointment IF YOU DO NOT HAVE A PRIMARY DOCTOR YOU CAN CALL OUR PHYSICIAN REFERRAL HOTLINE AT IF YOU CAN NOT AFFORD TO SEE A PHYSICIAN YOU CAN CHOSE FROM THE FOLLOWING [facility] [address] [facility]. [facility] [address] [facility]. [facility] [address] [facility] [address] [facility]. [facility] [address] [facility]. [facility] [address] [facility]. [facility] YOU HAVE RECEIVED A MEDICAL SCREENING EXAM AND THE RESULTS INDICATE THAT YOU DO NOT HAVE A CONDITION THAT REQUIRES URGENT TREATMENT IN THE EMERGENCY DEPARTMENT. FURTHER EVALUATION AND TREATMENT OF YOUR CONDITION CAN WAIT UNTIL YOU ARE SEEN IN YOUR DOCTORS OFFICE WITHIN THE NEXT 1-2 DAYS. IT IS YOUR RESPONSIBILITY TO MAKE AN APPOINTMENT FOR FOLOW-UP CARE. IF YOU HAVE A PRIMARY DOCTOR --you should call your primary doctor and schedule and appointment IF YOU DO NOT HAVE A PRIMARY DOCTOR YOU CAN CALL OUR PHYSICIAN REFERRAL HOTLINE AT . IF YOU CAN NOT AFFORD TO SEE A PHYSICIAN YOU CAN CHOSE FROM THE FOLLOWING [facility] INSTITUTIONS: [facility] [address] [place] [address] [facility] [address] [place], [place] [id number] [place] [address] [address] [place] [address] [facility] URGENT CARE/SPECIALTIES Additional Instructions: Call your primary care doctor TOMORROW for an appointment during the next 1-2 days for a urologist follow up.See the doctor sooner or return here if your condition worsens before your appointment time. ENRIQUE MCKEON PA-C Jan 13, 2017 08:45
== END 2017-01-13 08:46 | disposition home or self-care (01) ==
LOC: FTE 05:57
DX: R30.0 Dysuria (principal); R05 Cough; E11.9 Type 2 diabetes mellitus without complications; I10 Essential (primary) hypertension; Z79.84 Long term (current) use of oral hypoglycemic drugs
CPT/HCPCS: 81003; 87086; Z7502; 99284

== ENCOUNTER 2017-02-17 01:13 | Emergency (ER) | payer SELFPAY ==
[~2017-02-17] VITALS: Ht 165.1 cm; Wt 85.0 kg
[~2017-02-17 01:13] MED LIST changes: +AZIT250T94 PO; +BENZ100C70 PO
[2017-02-17 01:19] VITALS: Ht 165.1 cm; Wt 85.0 kg
== END 2017-02-17 03:40 | disposition left against medical advice (07) ==
LOC: E/R 01:13
DX: Z53.21 Procedure and treatment not carried out due to patient leaving prior to being seen by health care provider (principal)

== ENCOUNTER 2017-03-26 12:43 | Emergency (ER) | payer OTHER ==
[~2017-03-26] VITALS: Wt 84.1 kg
--- NOTE | 2017-03-26 16:13 | ERD ---
ER Documentation Chief Complaint Chief Complaint BODY PAIN, NECK PAIN, SHAKINESS, MOREIRA, COUGHING HPI 46y/o female patient with no medical history,presents to the emergency department with her daughter c/o cough, fever, chills and generalized arthralgia , that started 2 days ago. pain is dull, rated 6/10, constant. The symptoms are associated with sore throat and right ear pain. Denies nausea, vomiting, diarrhea or abdominal pain. No recent history of similar episodes. Treatment attempted: Tylenol with mild improvement of the symptoms ROS SYSTEMIC symptoms: + fever, + chills, no night sweats, no weight loss EYE symptoms: No blurred vision, no eye discharge OTOLARYNGEAL symptoms: No hearing loss. No ear pain, no sore throat CARDIOVASCULAR symptoms: No chest pain or discomfort, no palpitations. PULMONARY symptoms: No dyspnea, + cough, no wheezing. GASTROINTESTINAL symptoms: No abdominal pain, no nausea, no vomiting, no diarrhea MUSCULOSKELETAL symptoms: + arthralgias, + muscle aches. NEUROLOGY symptoms: No confusion, no syncope, no numbness or tingling. SKIN no rashes All systems reviewed and are negative except as per history of present illness. Medications Home Meds Active Scripts Promethazine HCl/Codeine (Prometh-Codein 6.25-10 mg/5 ml) 5 Ml Syrup, 5 ML PO QHS for 5 Days, #120 ML Prov:CLEOPATRA OROURKE MD 03/26/17 Ibuprofen* (Motrin*) 600 Mg Tab, 600 MG PO Q8, #30 TAB Prov:CLEOPATRA OROURKE MD 03/26/17 Azithromycin* (Zithromax*) 250 Mg Tablet, 250 MG PO .JersonPAPHUC DIRECTED, #6 TAB TAKE 500 MG (2 TABS) THE FIRST DAY THEN 250 MG (1 TAB) DAYS 2-5 Prov:CLEOPATRA OROUKRE MD 03/26/17 Benzonatate* (Tessalon Perle*) 100 Mg Capsule, 100 MG PO Q8H Y for COUGH, #20 CAP Prov:ENRIQUE MCKEON PA-C 01/13/17 Azithromycin* (Zithromax*) 250 Mg Tablet, 250 MG PO .ZPAPHUC DIRECTED, #6 TAB TAKE 500 MG (2 TABS) THE FIRST DAY THEN 250 MG (1 TAB) DAYS 2-5 Prov:ENRIQUE MCKEON PA-C 01/13/17 Bismuth Subsalicylate* (Pepto-Bismol*) 262 Mg/15 Ml Oral.susp, 15 ML PO Q3H Y for DIARRHEA for 4 Days, ML Prov:SAIGE SALEH MD 01/03/17 Ondansetron (Ondansetron Odt) 8 Mg Tab.rapdis, 8 MG PO Q6H Y for NAUSEA AND/OR VOMITING, #8 TAB Prov:SAIGE SALEH MD 01/03/17 Phenazopyridine Hcl* (Pyridium*) 100 Mg Tab, 100 MG PO TID, #8 TAB Prov:JONATHON WILD PA-C 01/02/17 Nitrofurantoin Monohyd Macrocr* (Macrobid*) 100 Mg Capsr, 100 MG PO BID for 7 Days, CAP Prov:JONATHON WILD PA-C 01/02/17 Ranitidine Hcl* (Zantac*) 150 Mg Tablet, 150 MG PO BID Y for EPIGASTRIC PAIN, # 30 TAB Prov:LUIS BRAR DO 10/11/16 Naproxen* (Naproxen*) 500 Mg Tablet, 500 MG PO BID Y for PAIN, #20 TAB Prov:LUIS BRAR DO 10/11/16 Ibuprofen* (Motrin*) 600 Mg Tab, 600 MG PO Q6, #20 TAB Prov:SAIGE SALEH MD 03/05/15 Meclizine Hcl* (Antivert*) 25 Mg Tablet, 25 MG PO Q6H Y for ANXIETY, #20 TAB Prov:MICHAELA MURGUIA MD 12/21/14 Reported Medications Fluticasone Propionate* (Fluticasone Propionate* Nasal) 50 Mcg/[place] - 16 Gm [place].susp, 2 SPRAYS NASAL DAILY, #1 BOTTLE TO EACH NOSTRIL 10/10/16 Acetaminophen* (Acetaminophen*) 500 MG Extra Strength Tablet, 500 MG PO Q4H Y for PAIN AND OR ELEVATED TEMP, TAB 10/10/16 Omeprazole* (Omeprazole*) 20 Mg Capsule.dr, 20 MG PO DAILY, #30 CAP 10/10/16 Metformin* (Glucophage*) 1,000 Mg Tablet, 1000 MG PO BID, TAB 07/01/14 Losartan Potassium* (Losartan Potassium*) 50 Mg Tablet, 50 MG PO BID, TAB 07/01/14 Atenolol* (Atenolol*) 50 Mg Tablet, 50 MG PO DAILY, TAB 07/01/14 Glyburide* (Diabeta*) 5 Mg Tablet, 5 MG PO BID 11/01/10 Allergies Allergies: Coded Allergies: No Known Allergies (Unverified Allergy, Mild, 01/13/17) PMhx/Soc History of Surgery: Yes (cholecystectomy) Anesthesia Reaction: No Hx Neurological Disorder: No Hx Respiratory Disorders: No Hx Cardiac Disorders: No Hx Psychiatric Problems: No Hx Miscellaneous Medical Probl: Yes (HTN, DM II) Hx Alcohol Use: No Hx Substance Use: No Hx Tobacco Use: No Physical Exam Vitals Vital Signs Date Time Temp Pulse Resp B/P Pulse Ox O2 Delivery O2 Flow Rate FiO2 03/26/17 12:49 100.0 96 20 184/90 100 Physical Exam Patient is in mild acute distress, vital signs stable. Alert and fully oriented. EYES: PERRLA, EOMI, Sclera and conjunctiva appear normal. EARS: Canals clear, tympanic membranes WNL THROAT: Erythematous oropharynx NECK: Supple, No lymphadenopathy. Full ROM without pain or tenderness. HEART: RRR, no rubs, murmurs, clicks or gallops. LUNGS: Bilateral rhonchi ABDOMEN: Soft, non-tender without masses or hepatosplenomegaly. EXTREMITIES: No edema bilaterally. MUSC: Full ROM, no deformity, normal back exam Procedures/MDM 46y/o female patient previously healthy, presents to the ED c/o worsening of upper respiratory symptoms for 3 days. Vital signs stable, Physical exam showed erythematous oropharynx and bilateral rhonchi. Differential diagnosis include but not limited to: Viral upper respiratory infection, bronchitis, asthma, influenza, pneumonia. Physical examination and clinical presentation consistent most likely with cough and fever with bronchitis. During the ED course the patient remained stable Medical impression discussed with patient who agrees with management. The patient will be discharged home with a Rx for azithromycin, ibuprofen and promethazine with codeine Side effects of prescribed narcotic medications (drowsiness, constipation, habituation) were reviewed. Side effects of prescribed NSAID medication (GI distress, edema, bleeding, HTN) were reviewed. If symptoms persist, worsen or new symptoms develop, then patient is instructed to follow-up with the primary care provider. If the patient is unable to see the primary care provider, then return to the ED immediately. Departure Diagnosis: Primary Impression: Fever Additional Impression: Cough Condition: Stable CLEOPATRA OROURKE MD Mar 26, 2017 16:13
[2017-03-26] MEDS ORDERED: IBUP-1542 PO (16:23)
[2017-03-26] MEDS ORDERED: PROM5SYR2 PO (16:23)
[2017-03-26] MEDS ORDERED: AZIT250T94 PO (16:23)
== END 2017-03-26 16:30 | disposition home or self-care (01) ==
LOC: FTE 12:43
DX: R50.9 Fever, unspecified (principal); R05 Cough; E11.9 Type 2 diabetes mellitus without complications; I10 Essential (primary) hypertension; Z79.84 Long term (current) use of oral hypoglycemic drugs
CPT/HCPCS: 99284

== ENCOUNTER 2017-07-17 09:47 | Emergency (ER) | END 2017-07-17 11:15 | disposition home or self-care (01) ==

== ENCOUNTER 2017-12-05 08:54 | Emergency (ER) | END 2017-12-05 12:16 | disposition home or self-care (01) ==

== ENCOUNTER 2018-03-07 19:55 | Emergency (ER) | END 2018-03-07 20:27 | disposition home or self-care (01) ==

== ENCOUNTER 2018-09-10 17:56 | Emergency (ER) | payer OTHER ==
[~2018-09-10] VITALS: Ht 165.1 cm; Wt 85.5 kg
[~2018-09-10 17:56] MED LIST changes: +AZIT250T PO; -AZIT250T94 PO; +BENZ-6 PO; -BENZ100C70 PO; +FIORICET PO; +FLUT9.9S NASAL; +LOSA50TA14 PO; -LOSA50TA6 PO; +NAPR-985 PO; +OSEL75CA23 PO; +PHEN-538 PO; +PROM5SYR2 PO; +RANI150T35 PO; -RANI150T9 PO
[2018-09-10 17:57] VITALS: Ht 165.1 cm; Wt 85.5 kg
--- NOTE | 2018-09-10 20:15 | ERD ---
ER Documentation Chief Complaint Chief Complaint FEVER, WEAKNESS, BODY ACHES HPI This is a 48-year-old female who presents to emerge department with multiple complaints including dysuria, cough and colds for about 3 days, mild weakness. Denies headache, head injury, loss of consciousness, dizziness, neck pain, neck stiffness, throat pain, difficulty swallowing, difficulty breathing lying flat, shoulder pain, chest pain, back pain, abdominal pain, nausea, vomiting, constipation, diarrhea, urinary symptoms, or possibility being , loss of bowel and bladder control, trauma, injury, falls, difficulty walking due to pain, numbness or tingling sensation, calf pain, recent travel, recent major surgery in the last 3 weeks, calf pain, recent long travel, recent exposure to any illness, recent antibiotic use in the last 3 months, fever, chills, seizures. Past medical history: Hypertension. Surgical history: Social: Denies smoking, use of alcoholic beverages, use of illegal drugs.. ROS All systems reviewed and are negative except as per history of present illness. Medications Home Meds Active Scripts Acetaminophen* (Tylophen*) 500 Mg Capsule, 1 CAP PO Q6H PRN for PAIN AND OR ELEVATED TEMP, #20 CAP Prov:INGRIS PINTO 09/10/18 Ondansetron Hcl* (Zofran*) 4 Mg Tablet, 4 MG PO Q8H PRN for NAUSEA AND/OR VOMITING, #30 TAB Prov:INGRIS PINTO F 09/10/18 Ibuprofen* (Motrin*) 600 Mg Tab, 600 MG PO Q6H PRN for PAIN AND OR ELEVATED TEMP, #30 TAB Prov:PASILABANINGRIS F 09/10/18 Acetamin/Butalbital/Caffeine* (Fioricet*) [id number] Tab, 1 TAB PO Q6H PRN for PAIN, #30 TAB Prov:IVONNE MUHAMMAD PA-C 06/30/18 Fluticasone Propionate (Flonase Allergy Relief) 9.9 Ml [place].susp, 1 SPRAY NASAL BID, #1 BOTTLE TO EACH NOSTRIL Prov:MARIAN LAGUNAS MD 03/07/18 Phenazopyridine Hcl* (Pyridium*) 200 Mg Tab, 200 MG PO TID PRN for URINARY PAIN, #15 TAB Prov:DEBORA YANEZ PA-C 12/05/17 Naproxen* (Naprosyn*) 500 Mg Tablet, 500 MG PO BID PRN for PAIN AND/OR INFLAMMATION, #30 TAB Prov:BEAUDEBORA AMIN-C 12/05/17 Benzonatate* (Tessalon Perle*) 100 Mg Capsule, 100 MG PO Q8H PRN for COUGH, #20 CAP Prov:MIKEENRIQUE Ramses AMIN-C 07/17/17 Oseltamivir Phosphate* (Tamiflu*) 75 Mg Capsule, 75 MG PO BID for 5 Days, CAP Prov:MIKEENRIQUE AMIN-C 07/17/17 Azithromycin* (Zithromax*) 250 Mg Tablet, 250 MG PO .ZPACK DIRECTED, #6 TAB TAKE 500 MG (2 TABS) THE FIRST DAY THEN 250 MG (1 TAB) DAYS 2-5 Prov:ENRIQUE MCKEON-C 07/17/17 Promethazine HCl/Codeine (Prometh-Codein 6.25-10 mg/5 ml) 5 Ml Syrup, 5 ML PO QHS for 5 Days, #120 ML Prov:CLEOPATRA OROURKE MD 03/26/17 Ibuprofen* (Motrin*) 600 Mg Tab, 600 MG PO Q8, #30 TAB Prov:CLEOPATRA OROURKE MD 03/26/17 Azithromycin* (Zithromax*) 250 Mg Tablet, 250 MG PO .ZPACK DIRECTED, #6 TAB TAKE 500 MG (2 TABS) THE FIRST DAY THEN 250 MG (1 TAB) DAYS 2-5 Prov:CLEOPATRA OROURKE MD 03/26/17 Benzonatate* (Tessalon Perle*) 100 Mg Capsule, 100 MG PO Q8H PRN for COUGH, #20 CAP Prov:ENRIQUE MCKEONC 01/13/17 Azithromycin* (Zithromax*) 250 Mg Tablet, 250 MG PO .ZPACK DIRECTED, #6 TAB TAKE 500 MG (2 TABS) THE FIRST DAY THEN 250 MG (1 TAB) DAYS 2-5 Prov:MCKENOENRIQUE-C 01/13/17 Bismuth Subsalicylate* (Pepto-Bismol*) 262 Mg/15 Ml Oral.susp, 15 ML PO Q3H PRN for DIARRHEA for 4 Days, ML Prov:SAIGE SALEH MD 01/03/17 Ondansetron (Ondansetron Odt) 8 Mg Tab.rapdis, 8 MG PO Q6H PRN for NAUSEA AND/OR VOMITING, #8 TAB Prov:SAIGE SALEH MD 01/03/17 Phenazopyridine Hcl* (Pyridium*) 100 Mg Tab, 100 MG PO TID, #8 TAB Prov:JONATHON WILD PA-C 01/02/17 Nitrofurantoin Monohyd Macrocr* (Macrobid*) 100 Mg Capsr, 100 MG PO BID for 7 Days, CAP Prov:JONATHON WILD PA-C 01/02/17 Ranitidine Hcl* (Zantac*) 150 Mg Tablet, 150 MG PO BID PRN for EPIGASTRIC PAIN, #30 TAB Prov:LUIS BRAR DO 10/11/16 Naproxen* (Naproxen*) 500 Mg Tablet, 500 MG PO BID PRN for PAIN, #20 TAB Prov:LUIS BRAR DO 10/11/16 Ibuprofen* (Motrin*) 600 Mg Tab, 600 MG PO Q6, #20 TAB Prov:SAIGE SALEH MD 03/05/15 Meclizine Hcl* (Antivert*) 25 Mg Tablet, 25 MG PO Q6H PRN for ANXIETY, #20 TAB Prov:MICHAELA MURGUIA MD 12/21/14 Reported Medications Fluticasone Propionate* (Fluticasone Propionate* Nasal) 50 Mcg/[place] - 16 Gm [place].susp, 2 SPRAYS NASAL DAILY, #1 BOTTLE TO EACH NOSTRIL 10/10/16 Acetaminophen* (Acetaminophen*) 500 MG Extra Strength Tablet, 500 MG PO Q4H PRN for PAIN AND OR ELEVATED TEMP, TAB 10/10/16 Omeprazole* (Omeprazole*) 20 Mg Capsule.dr, 20 MG PO DAILY, #30 CAP 10/10/16 Metformin* (Glucophage*) 1,000 Mg Tablet, 1000 MG PO BID, TAB 07/01/14 Losartan Potassium* (Losartan Potassium*) 50 Mg Tablet, 50 MG PO BID, TAB 07/01/14 Atenolol* (Atenolol*) 50 Mg Tablet, 50 MG PO DAILY, TAB 2/6/15 Glyburide* (Diabeta*) 5 Mg Tablet, 5 MG PO BID 11/01/10 Allergies Allergies: Coded Allergies: No Known Allergies (Unverified Allergy, Mild, 01/13/17) PMhx/Soc History of Surgery: Yes (cholecystectomy) Anesthesia Reaction: No Hx Neurological Disorder: No Hx Respiratory Disorders: No Hx Cardiac Disorders: No Hx Psychiatric Problems: No Hx Miscellaneous Medical Probl: Yes (HTN, DM II) Hx Alcohol Use: No Hx Substance Use: No Hx Tobacco Use: No Smoking Status: Never smoker Physical Exam Vitals Physical Exam Const: No acute distress Head: Atraumatic Eyes: Normal Conjunctiva. No visual field loss. There is no obvious facial droop. ENT: Normal External Ears, Nose and Mouth. Bilateral ears: TMs not erythematous. No bleeding. No discharge with no hearing loss. No mastoid tenderness. Nose: Midline. Throat: Uvula is midline and nondisplaced with tonsils are +1 bilaterally without redness and without exudates. Tolerating secretions. Patent airway. Speaks full and clear sentences. Neck: Full range of motion. No meningismus. No nuchal rigidity with no signs of meningeal irritation. Resp: Clear to auscultation bilaterally Cardio: Regular rate and rhythm, no murmurs Abd: Soft, non tender, non distended. Normal bowel sounds. Negative Andersen sign but negative [place] sign (heel jar test). Negative psoas sign. Negative Rovsing sign. Skin: No petechiae or rashes. No vesicular lesions. Color appears normal for ethnicity. No skin tenting. No signs of severe dehydration. Back: No midline or flank tenderness. No CVA tenderness.. Ext: No cyanosis, or edema Neur: Awake and alert. There is no obvious facial droop. Able to control tongue movement. Speaks full and clear sentences. Follows commands. Equal supervisor brine. Equal strength in bilateral upper and lower extremities. Able to bear weight on left lower extremity. Able to bear weight on right lower extremity. Romberg test is negative. Able to tolerate steady gait. No neurological deficits. Psych: Normal Mood and Affect Results 24 hrs Laboratory Tests Test 09/10/18 20:10 09/10/18 20:28 Urine Color YELLOW Urine Clarity CLEAR Urine pH 5.0 Bedside Urine pH (LAB) 5.5 Urine Specific [place] 1.011 Bedside Urine Protein (LAB) Negative Bedside Urine Glucose (UA) Negative Urine Ketones NEGATIVE mg/dL Bedside Urine Ketones (LAB) Negative Bedside Urine Blood Negative Urine Nitrite NEGATIVE mg/dL Bedside Urine Nitrite (LAB) Negative Urine Bilirubin NEGATIVE mg/dL Urine Urobilinogen NEGATIVE mg/dL Urine Leukocyte Esterase NEGATIVE Deandra/ul Bedside Urine Leukocyte Esterase (L Negative Urine Hemoglobin NEGATIVE mg/dL Urine Glucose 1+ mg/dL Urine Total Protein NEGATIVE mg/dl Urine Test NEGATIVE White Blood Count 12.7 10^3/ul Red Blood Count 4.03 10^6/ul Hemoglobin 10.8 g/dl Hematocrit 32.7 % Mean Corpuscular Volume 81.1 fl Mean Corpuscular Hemoglobin 26.8 pg Mean Corpuscular Hemoglobin Concent 33.0 g/dl Red Cell Distribution Width 13.1 % Platelet Count 295 10^3/UL Mean Platelet Volume 12.3 fl Immature Granulocytes % 0.200 % Neutrophils % 57.0 % Lymphocytes % 34.3 % Monocytes % 6.6 % Eosinophils % 1.7 % Basophils % 0.2 % Nucleated Red Blood Cells % 0.0 /100WBC Immature Granulocytes # 0.030 10^3/ul Neutrophils # 7.2 10^3/ul Lymphocytes # 4.4 10^3/ul Monocytes # 0.8 10^3/ul Eosinophils # 0.2 10^3/ul Basophils # 0.0 10^3/ul Nucleated Red Blood Cells # 0.0 10^3/ul Prothrombin Time 11.2 Sec Prothrombin Time Ratio 0.9 INR International Normalized Ratio 0.80 Activated Partial Thromboplast Time 29.0 Sec Sodium Level 128 mmol/L Potassium Level 3.7 mmol/L Chloride Level 89 mmol/L Carbon Dioxide Level 28 mmol/L Anion Gap 11 Blood Urea Nitrogen 21 mg/dl Creatinine 1.17 mg/dl Est Glomerular Filtrat Rate mL/min 49 mL/min Glucose Level 208 mg/dl Calcium Level 10.1 mg/dl Total Bilirubin 0.3 mg/dl Direct Bilirubin 0.00 mg/dl Indirect Bilirubin 0.3 mg/dl Aspartate Amino Transf (AST/SGOT) 20 IU/L Alanine Aminotransferase (ALT/SGPT) 16 IU/L Alkaline Phosphatase 118 IU/L Troponin I < 0.012 ng/ml Total Protein 8.2 g/dl Albumin 4.6 g/dl Globulin 3.60 g/dl Albumin/Globulin Ratio 1.27 Serum HCG, Qualitative NEGATIVE Current Medications Medications Dose Sig/Avel Start Time Status Last (Trade) Ordered Route PRN Stop Time Admin Dose Reason Admin Nicardipine 30 mg ONCE ONCE 09/10/18 DC 09/10/18 HCl PO 20:30 20:27 (Cardene) 09/10/18 20:31 Sodium 1,000 ml @ Q1H ONCE 09/10/18 DC 09/10/18 Chloride 1,000 mls/hr IV 22:30 22:25 09/10/18 23:29 Procedures/MDM Diagnostic tests: EKG: Normal sinus rhythm with a ventricular rate of 88 bpm. No STEMI. Read by supervising physician. Blood works: Mild dehydration. Chest x-ray: No acute cardia pulmonary disease demonstrated. There is no significant interval change from the previous study. Treatment: Nicardipine/Cardene p.o. Normal saline IV. Re-evaluation: Blood pressure responded to Cardene. Remote test is negative. No neurological deficits. Differential diagnosis I have low suspicion for subarachnoid hemorrhage, stroke, meningitis, sepsis, acute myocardial infarction. Acute coronary syndrome, pneumonia, pulmonary embolism, pneumothorax, hemothorax, obstructing kidney stones, kidney stone, renal failure, pancreatitis, cholecystitis, colitis, appendicitis, diverticulitis, bowel obstruction. Final diagnosis: Mild dehydration. Prescription: Motrin. Tylenol. Zofran. Follow-up with PCP in the next 24-48 hours. Come back here in the emergency department for any new symptoms or any worsening symptoms. All questions and concerns were answered. Patient and family members verbalized understanding and agreed with plan of care. Hemodynamically stable on discharge. Departure Diagnosis: Primary Impression: Influenza-like symptoms Additional Impression: Dehydration, mild Condition: Stable Additional Instructions: Follow-up with PCP in the next 24-48 hours. Come back here in the emergency department for any new symptoms or any worsening symptoms. INGRIS PINTO Sep 10, 2018 20:15
[2018-09-10] MEDS ORDERED: NICARDipine HCL 30 MG CAPSULE PO ONE (20:30)
[2018-09-10] MEDS ORDERED: SOD CHLORIDE 0.9% 1,000 ML IV ONE (22:30)
[2018-09-10 23:55] VITALS: BP 145/78; PULSE 82; RESP 18
[2018-09-10] MEDS ORDERED: ACET500C5 PO (23:56)
[2018-09-10] MEDS ORDERED: ONDA4TAB8 PO (23:56)
[2018-09-10] MEDS ORDERED: IBUP-1542 PO (23:56)
== END 2018-09-10 23:55 | disposition home or self-care (01) ==
LOC: FTE 17:56
DX: E86.0 Dehydration (principal); I10 Essential (primary) hypertension; E11.9 Type 2 diabetes mellitus without complications; Z79.84 Long term (current) use of oral hypoglycemic drugs
CPT/HCPCS: 36415; 71046; 80053; 81003; 84484; 84703; 85025; 85610; 85730; 93005; 96360; J7030; Z7502; Z7610

== ENCOUNTER 2018-10-09 22:49 | Inpatient (IN) | payer OTHER ==
[~2018-10-09] VITALS: Ht 165.1 cm; Wt 84.6 kg
[~2018-10-09 22:49] MED LIST changes: +ACET500C5 PO; +ONDA4TAB8 PO
--- NOTE | 2018-10-09 23:29 | ERD ---
ER Documentation Chief Complaint Chief Complaint back pain rad to chest since 2 hours ago, no SOB/n/v HPI The patient is a 48-year-old female, presenting to the ER because of upper back pain radiating to her chest about 9 PM. She has been fasting for the last 16 hours and began to 8 around 8 PM. She had similar symptoms previously but this time it is more intense, therefore she came to emergency department. She felt better if she sits up and worse if she lies down. She denies chest pain with vomiting/diaphoresis, dyspnea, abdominal pain, vomiting, dysuria, diarrhea. She does not smoke or drink Past medical history: Hypertension, diabetes mellitus, GERD Past surgical history: Cholecystectomy ROS All systems reviewed and are negative except as per history of present illness. Medications Home Meds Active Scripts Fluticasone Propionate (Flonase Allergy Relief) 9.9 Ml Arnold.susp, 1 SPRAY NASAL BID, #1 BOTTLE TO EACH NOSTRIL Prov:MARIAN LAGUNAS MD 03/07/18 Benzonatate* (Tessalon Perle*) 100 Mg Capsule, 100 MG PO Q8H PRN for COUGH, #20 CAP Prov:ENRIQUE MCKEON PA-C 07/17/17 Reported Medications Ketotifen Fumarate (KETOTIFEN FUMARATE) 5 Ml Drops, 5 ML OP DAILY, BOTTLE INSTILL 1 DROP INTO AFFECTED EYE ONCE DAILY 10/10/18 Hydrochlorothiazide (Hydrochlorothiazide) 12.5 Mg Capsule, 12.5 MG PO DAILY for 30 Days, #30 10/10/18 Atorvastatin (Atorvastatin) 10 Mg Tablet, 10 MG PO QHS for 90 Days, #90 10/10/18 Loratadine* (Loratadine*) 10 Mg Tablet, 10 MG PO DAILY 10/10/18 Amlodipine Besylate* (Amlodipine Besylate*) 10 Mg Tablet, 10 MG PO DAILY, #30 TAB 10/10/18 Insulin Glargine,Hum.rec.anlog (Basaglar Kwikpen U-100) 100 Unit/1 Ml Insuln.pen, 28 UNIT SC QHS, EA 10/10/18 Hydralazine Hcl* (Hydralazine Hcl*) 25 Mg Tab, 25 MG PO BID for 30 Days, #60 10/10/18 Fluticasone Propionate* (Fluticasone Propionate* Nasal) 50 Mcg/Arnold - 16 Gm Arnold.susp, 2 SPRAYS NASAL DAILY, #1 BOTTLE TO EACH NOSTRIL 10/10/16 Omeprazole* (Omeprazole*) 20 Mg Capsule.dr, 20 MG PO DAILY, #30 CAP 10/10/16 Metformin* (Glucophage*) 1,000 Mg Tablet, 1000 MG PO BID, TAB 07/01/14 Losartan Potassium* (Losartan Potassium*) 50 Mg Tablet, 50 MG PO BID, TAB 07/01/14 Atenolol* (Atenolol*) 50 Mg Tablet, 50 MG PO DAILY, TAB 07/01/14 Glyburide* (Diabeta*) 5 Mg Tablet, 5 MG PO BID 11/01/10 Discontinued Reported Medications Acetaminophen* (Acetaminophen*) 500 MG Extra Strength Tablet, 500 MG PO Q4H PRN for PAIN AND OR ELEVATED TEMP, TAB 10/10/16 Discontinued Scripts Acetaminophen* (Tylophen*) 500 Mg Capsule, 1 CAP PO Q6H PRN for PAIN AND OR ELEVATED TEMP, #20 CAP Prov:BLAIRDAYNARENATA F 09/10/18 Ondansetron Hcl* (Zofran*) 4 Mg Tablet, 4 MG PO Q8H PRN for NAUSEA AND/OR VOMITING, #30 TAB Prov:RAFISTEFFANYINGRIS 09/10/18 Ibuprofen* (Motrin*) 600 Mg Tab, 600 MG PO Q6H PRN for PAIN AND OR ELEVATED TEMP, #30 TAB Prov:INGRIS PINTO F 09/10/18 Acetamin/Butalbital/Caffeine* (Fioricet*) [id number] Tab, 1 TAB PO Q6H PRN for PAIN, #30 TAB Prov:IVONNE MUHAMMAD PA-C 06/30/18 Phenazopyridine Hcl* (Pyridium*) 200 Mg Tab, 200 MG PO TID PRN for URINARY PAIN, #15 TAB Prov:DEBORA YANEZ PA-C 12/05/17 Naproxen* (Naprosyn*) 500 Mg Tablet, 500 MG PO BID PRN for PAIN AND/OR INFLAMMATION, #30 TAB Prov:DEBORA YANEZ PA-C 12/05/17 Oseltamivir Phosphate* (Tamiflu*) 75 Mg Capsule, 75 MG PO BID for 5 Days, CAP Prov:MCKEON,ENRIQUE T. PA-C 07/17/17 Azithromycin* (Zithromax*) 250 Mg Tablet, 250 MG PO .ZPACK DIRECTED, #6 TAB TAKE 500 MG (2 TABS) THE FIRST DAY THEN 250 MG (1 TAB) DAYS 2-5 Prov:ENRIQUE MCKEON PA-C 07/17/17 Promethazine HCl/Codeine (Prometh-Codein 6.25-10 mg/5 ml) 5 Ml Syrup, 5 ML PO QHS for 5 Days, #120 ML Prov:CLEOPATRA OROURKE MD 03/26/17 Ibuprofen* (Motrin*) 600 Mg Tab, 600 MG PO Q8, #30 TAB Prov:CLEOPATRA OROURKE MD 03/26/17 Azithromycin* (Zithromax*) 250 Mg Tablet, 250 MG PO .ZPACK DIRECTED, #6 TAB TAKE 500 MG (2 TABS) THE FIRST DAY THEN 250 MG (1 TAB) DAYS 2-5 Prov:CLEOPATRA OROURKE MD 03/26/17 Benzonatate* (Tessalon Perle*) 100 Mg Capsule, 100 MG PO Q8H PRN for COUGH, #20 CAP Prov:ENRIQUE MCKEON PA-C 01/13/17 Azithromycin* (Zithromax*) 250 Mg Tablet, 250 MG PO .ZPACK DIRECTED, #6 TAB TAKE 500 MG (2 TABS) THE FIRST DAY THEN 250 MG (1 TAB) DAYS 2-5 Prov:ENRIQUE MCKEON PA-C 01/13/17 Bismuth Subsalicylate* (Pepto-Bismol*) 262 Mg/15 Ml Oral.susp, 15 ML PO Q3H PRN for DIARRHEA for 4 Days, ML Prov:SAIGE SALEH MD 01/03/17 Ondansetron (Ondansetron Odt) 8 Mg Tab.rapdis, 8 MG PO Q6H PRN for NAUSEA AND/OR VOMITING, #8 TAB Prov:SAIGE SALEH MD 01/03/17 Phenazopyridine Hcl* (Pyridium*) 100 Mg Tab, 100 MG PO TID, #8 TAB Prov:JONATHON WILD PA-C 01/02/17 Nitrofurantoin Monohyd Macrocr* (Macrobid*) 100 Mg Capsr, 100 MG PO BID for 7 Days, CAP Prov:JONATHON WILD PA-C 01/02/17 Ranitidine Hcl* (Zantac*) 150 Mg Tablet, 150 MG PO BID PRN for EPIGASTRIC PAIN, #30 TAB Prov:LUIS BRAR DO 10/11/16 Naproxen* (Naproxen*) 500 Mg Tablet, 500 MG PO BID PRN for PAIN, #20 TAB Prov:LUIS BRAR DO 10/11/16 Ibuprofen* (Motrin*) 600 Mg Tab, 600 MG PO Q6, #20 TAB Prov:SAIGE SALEH MD 03/05/15 Meclizine Hcl* (Antivert*) 25 Mg Tablet, 25 MG PO Q6H PRN for ANXIETY, #20 TAB Prov:MICHAELA MURGUIA MD 12/21/14 Allergies Allergies: Coded Allergies: No Known Allergies (Unverified Allergy, Mild, 10/10/18) PMhx/Soc History of Surgery: Yes (cholecystectomy) Anesthesia Reaction: No Hx Neurological Disorder: No Hx Respiratory Disorders: No Hx Cardiac Disorders: No Hx Psychiatric Problems: No Hx Miscellaneous Medical Probl: Yes (HTN, DM II) Hx Alcohol Use: No Hx Substance Use: No Hx Tobacco Use: No Smoking Status: Never smoker Physical Exam Vitals Vital Signs Date Temp Pulse Resp B/P (MAP) Pulse Ox O2 O2 Flow FiO2 Time Delivery Rate 10/10/18 93 15 154/76 100 Nasal 2.0 03:07 (102) Cannula 10/10/18 98 17 168/86 99 Nasal 2.0 01:13 (113) Cannula 10/09/18 98.0 104 20 168/80 97 23:01 (109) Physical Exam Const: No acute distress. Head: Atraumatic. Eyes: Normal Conjunctiva. ENT: Normal External Ears, Nose and Mouth. Neck: Full range of motion. No meningismus. Resp: Clear to auscultation bilaterally. Cardio: Regular rate and rhythm. Abd: Soft, non distended, normal bowel sounds, non tender. Skin: No petechiae or rashes. Back: No midline or flank tenderness. Ext: No cyanosis, or edema. Neur: Awake and alert. No focal deficit Psych: Normal Mood and Affect. Result Diagram: 10/09/18 2353 10/09/18 2353 Results 24 hrs Laboratory Tests Test 10/09/18 23:53 10/10/18 00:00 10/10/18 01:08 10/10/18 03:01 White Blood Count 11.8 10^3/ul Red Blood Count 3.98 10^6/ul Hemoglobin 10.6 g/dl Hematocrit 32.8 % Mean Corpuscular 82.4 fl Volume Mean Corpuscular 26.6 pg Hemoglobin Mean Corpuscular 32.3 g/dl Hemoglobin Concent Red Cell 13.4 % Distribution Width Platelet Count 364 10^3/UL Mean Platelet 11.5 fl Volume Immature 0.300 % Granulocytes % Neutrophils % 59.5 % Lymphocytes % 30.2 % Monocytes % 8.5 % Eosinophils % 1.3 % Basophils % 0.2 % Nucleated Red Blood 0.0 /100WBC Cells % Immature 0.030 10^3/ul Granulocytes # Neutrophils # 7.0 10^3/ul Lymphocytes # 3.6 10^3/ul Monocytes # 1.0 10^3/ul Eosinophils # 0.2 10^3/ul Basophils # 0.0 10^3/ul Nucleated Red Blood 0.0 10^3/ul Cells # Sodium Level 133 mmol/L Potassium Level 3.8 mmol/L Chloride Level 94 mmol/L Carbon Dioxide 27 mmol/L Level Anion Gap 12 Blood Urea Nitrogen 26 mg/dl Creatinine 1.17 mg/dl Est Glomerular 49 mL/min Filtrat Rate mL/min Glucose Level 447 mg/dl Calcium Level 10.2 mg/dl Troponin I 0.200 ng/ml Bedside Urine pH 7.0 (LAB) Bedside Urine Negative Protein (LAB) Bedside Urine 0.50% Glucose (UA) Bedside Urine Negative Ketones (LAB) Bedside Urine Blood Negative Bedside Urine Negative Nitrite (LAB) Bedside Urine Negative Leukocyte Esterase (L POC Beta HCG, NEGATIVE Qualitative Bedside Glucose 383 mg/dL Current Medications Medications Dose Sig/Avel Start Time Status Last (Trade) Ordered Route PRN Stop Time Admin Dose Reason Admin 40 mg ONCE ONCE 10/10/18 DC 10/09/18 Pantoprazole IV 00:00 23:54 (Protonix 10/10/18 00:01 Iv) Sodium 1,000 ml @ Q1H ONCE 10/10/18 DC 10/10/18 Chloride 1,000 mls/hr IV 01:00 01:07 10/10/18 01:59 Aspirin 324 mg ONCE ONCE 10/10/18 DC 10/10/18 (Aspirin) PO 01:00 01:06 10/10/18 01:01 1 inch ONCE ONCE 10/10/18 DC 10/10/18 Nitroglycerin TD 01:00 01:06 10/10/18 01:01 (Nitroglyceri n 2% Oint) IV Flush 10 ml STK-MED 10/10/18 DC (NS 10 ml) ONCE .ROUTE 01:30 10/10/18 01:31 Sodium 100 ml @ ud STK-MED 10/10/18 DC Chloride ONCE .ROUTE 01:30 10/10/18 01:31 Iohexol 100 ml @ ud STK-MED 10/10/18 DC ONCE .ROUTE 01:30 10/10/18 01:31 Insulin 28 units ONCE ONCE 10/10/18 DC 10/10/18 Glargine SC 02:30 03:02 (Lantus) 10/10/18 02:34 Discontinue ONCE ONCE 10/10/18 DC Miscellaneous current oral XX 02:30 sulfonylur... 10/10/18 02:35 Information (* Miscellaneous Pharmacy Order) Diagnostic 1 ea 02 XX 10/11/18 DC Test (Pha) 02:00 (Accu-Chek) 10/11/18 02:00 ONCE ONCE 10/10/18 DC Miscellaneous HYPOGLYCEMIA XX 02:30 PROTOCOL 10/10/18 02:35 Information w... (* Miscellaneous Pharmacy Order) Insulin NOVOLOG Q4 SC 10/10/18 Aspart *MILD* 05:00 (Novolog ALGORI... Insulin Pen) Discontinue ONCE ONCE 10/10/18 DC Miscellaneous all previ... XX 02:30 10/10/18 02:35 Information (* Miscellaneous Pharmacy Order) Lisinopril 20 mg ONCE ONCE 10/10/18 DC 10/10/18 (Zestril) PO 02:30 02:57 10/10/18 02:32 80 mg ONCE ONCE 10/10/18 DC 10/10/18 Atorvastatin PO 02:30 02:56 Calcium 10/10/18 02:32 (Lipitor) 1 ea NOTE XX 10/10/18 Miscellaneous 02:36 Information Glucose 15 gm Q15M PRN 10/10/18 (Glutose) PO DECREASED 02:36 GLUCOSE Glucose 22.5 gm Q15M PRN 10/10/18 (Glutose) PO DECREASED 02:36 GLUCOSE Dextrose 25 ml Q15M PRN 10/10/18 (D50w IV DECREASED 02:36 Syringe) GLUCOSE Dextrose 50 ml Q15M PRN 10/10/18 (D50w IV DECREASED 02:36 Syringe) GLUCOSE Glucagon 1 mg Q15M PRN 10/10/18 (Glucagen) IM DECREASED 02:36 GLUCOSE Glucose 15 gm Q15M PRN 10/10/18 (Glutose) BUCCAL 02:36 DECREASED GLUCOSE Sodium 1,000 ml @ [id number] IV 10/10/18 Chloride 80 mls/hr 03:18 IV Flush 3 ml PER 10/10/18 (NS 3 ml) PROTOCOL IV 03:30 Ondansetron 4 mg Q6H PRN 10/10/18 HCl (Zofran IV 03:30 Inj) NAUSEA/VOMITI NG Aspirin 81 mg DAILY PO 10/10/18 (Aspirin) 09:00 1 tab Q5M PRN 10/10/18 Nitroglycerin SL .CHEST 03:30 PAIN (Nitroglyceri n (Sl Tab) 0.4 Mg) 650 mg Q6H PRN 10/10/18 Acetaminophen PO .PAIN 1-3 03:30 (Tylenol OR TEMP Tab) Morphine 2 mg Q4H PRN 10/10/18 Sulfate IV .PAIN 03:30 (morphine) 7-10 DC ONCE ONCE 10/10/18 DC Miscellaneous previous XX 03:30 hepa... 10/10/18 03:31 Information (* Miscellaneous Pharmacy Order) Heparin 4,000 unit ONCE ONCE 10/10/18 DC Sodium IV 03:30 (Porcine) 10/10/18 03:31 (Heparin (1000 Units/ml)) Heparin 4,000 unit PER PROTOCOL 10/10/18 Sodium PRN IV 09:30 (Porcine) aPTT<47 (Heparin (1000 Units/ml)) Heparin 250 ml @ PER 10/10/18 Sodium 10 mls/hr PROTOCOL IV 03:30 (Porcine) Lisinopril 20 mg DAILY PO 10/10/18 (Zestril) 09:00 80 mg HS PO 10/10/18 Atorvastatin 21:00 Calcium (Lipitor) Procedures/MDM [place] [address] Radiology Main Line: [phone] DIAGNOSTIC IMAGING REPORT Patient: ZHANNA GILLETTE : 1970 Age: 48 Sex: F MR #: [id number] DOS: 10/10/18 0054 Ordering MD: JURGEN KENNEDY MD Location: E/R Room/Bed: PROCEDURE: CTA CHEST WITH CONTRAST CLINICAL INDICATION: 48-year-old female with chest pain. TECHNIQUE: The study was performed utilizing a the [employer] 64-slice CT scanner. Direct axial sections were obtained from the thoracic inlet through the chest to the upper abdomen with a bolus injection of 100 cc of Omnipaque 350 nonionic contrast material. Sagittal, coronal and maximal intensity projections reformations (MIPs) were obtained. One or more of the following dose reduction techniques were utilized: automated exposure control, adjustment of the mA and/or kV according to patient's size or use of iterative reconstruction technique. DICOM images are available. The images were reviewed on a PACS workstation. CTD/vol = 29.72 mGy; Total Exam DLP = 422.18 mGy.cm COMPARISON: CT abdomen/pelvis December 05, 2017. FINDINGS: The aorta is minimally calcified but without aneurysmal dilatation or dissection. There is mild focal calcification within the proximal left anterior descending and circumflex coronary arteries. There are small lymph nodes seen within the mediastinum which are not pathologic by size criteria. The main pulmonary artery measures approximately 28 mm. The central pulmonary arteries are without evidence for filling defect to suggest pulmonary embolus or thrombus. There is incomplete opacification of the distal pulmonary arterial branches limiting the evaluation. There is minimal bilateral posterior dependent subsegmental atelectasis. There is no evidence for an infiltrate. No abnormal soft tissue masses or nodular densities are visualized. There is no evidence for a pneumothorax. The upper liver and spleen are without areas of abnormal density. The osseous structures are unremarkable. IMPRESSION: 1. No CTA evidence for thoracic aortic aneurysm/dissection or central pulmonary embolus. There is incomplete opacification of the distal pulmonary tear branches limiting the evaluation. 2. Calcified proximal coronary artery calcifications. 3. Minimal bilateral posterior dependent subsegmental atelectasis. .Hema Fortune MD, MD Date Time Electronically viewed and signed by .Hema Fortune MD, MD on 10/10/2018 02:49 .M/ CC: JURGEN KENNEDY MD [id number] [place] [address] Radiology Main Line: [phone] DIAGNOSTIC IMAGING REPORT Patient: ZHANNA GILLETTE : 1970 Age: 48 Sex: F MR #: [id number] DOS: 10/09/18 2339 Ordering MD: JURGEN KENNEDY MD Location: E/R Room/Bed: PROCEDURE: Chest. CLINICAL INDICATION: Chest pain. TECHNIQUE: Single frontal view of the chest was obtained. COMPARISON: 09/10/2018. FINDINGS: The cardiac silhouette is magnified. The aortic arch is unremarkable. There is no focal consolidation, vascular congestion or pleural effusion. There is no pneumothorax. IMPRESSION: No evidence for active cardiopulmonary disease. .Fabricio Grubbs MD, MD Date Time Electronically viewed and signed by .Fabricio Grubbs MD, MD on 10/10/2018 00:53 .T/ CC: JURGEN KENNEDY MD [phone] EKG: At 11:06 PM read by emergency physician Rate/Rhythm: Sinus tachycardia 109 beats/min QRS, ST, T-waves: No ST elevation, inferior lateral ST abnormality Impression: Abnormal EKG EKG: At 12:38 AM read by emergency physician Rate/Rhythm: Normal sinus rhythm 97 beats/min QRS, ST, T-waves: No ST elevation, inferior lateral ST abnormality Impression: Abnormal EKG MEDICAL MAKING DECISION: The patient is a 48-year-old female, presenting with acute non-STEMI, acute diabetic hyperglycemia. She was treated with Protonix 40 mg IV, 1 L normal saline for acute hyperglycemia, aspirin 324 mg and 1 inch of nitroglycerin ointment to the chest wall for acute NSTEMI. The hospitalist will contact manager office and decide whether the patient is to be on heparin or Lovenox; anticipating cardiac angiogram The differential diagnoses considered include but are not limited to acute coronary syndrome, acute myocardial infarction, pericarditis, pulmonary embolism, aortic dissection, pneumonia, pleural effusion, pneumothorax, GERD, chest wall pain. Critical Care: Time: 35 minutes excluding all billable procedures. Treatments/Evaluations: Close monitoring and treatment of unstable vital signs, cardiorespiratory, and neurologic status, while maintaining tight balance of fluid, respiratory, and cardiac interventions. Departure Diagnosis: Primary Impression: NSTEMI (non-ST elevated myocardial infarction) Additional Impressions: Hyperglycemia Anemia Condition: Stable Comments I discussed the findings with the patient. I discussed the patient with Dr Ackerman at 1:50am , who was made aware of the lab, the treatment, the patient condition. The patient is admitted to to Tel per Dr Ackerman Disclaimer: Inadvertent spelling and grammatical errors are likely due to EHR/dictation software use and do not reflect on the overall quality of patient care. Also, please note that the electronic time recorded on this note does not necessarily reflect the actual time of the patient encounter. JURGEN KENNEDY MD October 09, 2018 23:29
[2018-10-10] VITALS (13 sets, daily range): BP systolic 146–173; BP diastolic 64–81; PULSE 73–90; RESP 18; Ht 165.1 cm; Wt 84.6 kg
[2018-10-10] MEDS ORDERED: PANTOPRAZOLE 40 MG INJ IV ONE
[2018-10-10] MEDS ORDERED: NITROGLYCERIN 2% 1 GM OINT PKT TD ONE (01:00)
[2018-10-10] MEDS ORDERED: ASPIRIN 81 MG TAB PO ONE (01:00)
[2018-10-10] MEDS ORDERED: SOD CHLORIDE 0.9% 1,000 ML IV ONE (01:00)
[2018-10-10] MEDS ORDERED: SOD CHLORIDE 0.9% 100 ML ONE (01:30)
[2018-10-10] MEDS ORDERED: IOHEXOL 100 ML ONE (01:30)
--- NOTE | 2018-10-10 02:27 | HP ---
Date/Time of Note Date/Time of Note DATE: 10/10/18 TIME: 02:26 Assessment/Plan VTE Prophylaxis Pharmacological prophylaxis: heparin Lines/Catheters IV [facility] Assessment/Plan Hospital Course This is a 48-year-old female being admitted to the telemetry floor for: #1nstemi type I versus type II. At the current time I suspect an ACS event. Given that she has a positive troponin of 0.[address] depressions. She did receive high-dose aspirin in the ED. Will initiate a heparin drip, lisinopril, atorvastatin. Will check hemoglobin A1c, lipid panel, TSH. Will trend cardiac enzymes. We will check an echocardiogram. Will consult cardiology #2 hypertension: We will initiate patient on lisinopril 20 mg p.o. daily, will need to confirm patient's home blood pressure medications and then resume them. #3 diabetes mellitus: Patient reports he takes Lantus 28 units nightly we will continue this, she also takes metformin however we will hold this at the current time given the possible need for cardiac catheterization. #4 GERD: Continue home PPI #5 DVT GI prophylaxis: Heparin drip, Protonix Further treatment strategy will be implemented as per the clinical course. Result Diagram: 10/09/18 2353 10/09/18 2353 Results 24hrs Laboratory Tests Test 10/09/18 23:53 10/10/18 00:00 10/10/18 01:08 White Blood Count 11.8 H Red Blood Count 3.98 L Hemoglobin 10.6 L Hematocrit 32.8 L Mean Corpuscular Volume 82.4 Mean Corpuscular Hemoglobin 26.6 L Mean Corpuscular Hemoglobin Concent 32.3 Red Cell Distribution Width 13.4 Platelet Count 364 # Mean Platelet Volume 11.5 H Immature Granulocytes % 0.300 Neutrophils % 59.5 Lymphocytes % 30.2 Monocytes % 8.5 Eosinophils % 1.3 Basophils % 0.2 Nucleated Red Blood Cells % 0.0 Immature Granulocytes # 0.030 Neutrophils # 7.0 Lymphocytes # 3.6 H Monocytes # 1.0 H Eosinophils # 0.2 Basophils # 0.0 Nucleated Red Blood Cells # 0.0 Sodium Level 133 L Potassium Level 3.8 Chloride Level 94 L Carbon Dioxide Level 27 Anion Gap 12 Blood Urea Nitrogen 26 H Creatinine 1.17 H Est Glomerular Filtrat Rate mL/min 49 L Glucose Level 447 *H Calcium Level 10.2 Troponin I 0.200 *H Bedside Urine pH (LAB) 7.0 Bedside Urine Protein (LAB) Negative Bedside Urine Glucose (UA) 0.50% H Bedside Urine Ketones (LAB) Negative Bedside Urine Blood Negative Bedside Urine Nitrite (LAB) Negative Bedside Urine Leukocyte Esterase (L Negative POC Beta HCG, Qualitative NEGATIVE HPI/ROS Admit Date/Time Admit Date/Time Hx of Present Illness Chief complaint: Upper back pain radiating to her chest The patient is a 48-year-old female, presenting to the ER because of upper back pain radiating to her chest about 9 PM. She has been fasting for the last 16 hours and began to eat around 8 PM. She does report some radiation to her left arm. She had similar symptoms previously but this time it is more intense, therefore she came to emergency department. She felt better if she sits up and worse if she lies down. She does report that she has a history of acid reflux and she felt like a burning sensation. She denies chest pain with vomiting/diaphoresis, dyspnea, abdominal pain, vomiting, dysuria, diarrhea. Allergies: NKDA Medications: See Jul Const: As per HPI Eyes : No pain discharge or redness or change in visual acuity ENT: No pain, sore throat, congestion, congestion, dysphagia or discharge Respiratory: No shortness of breath, cough, sputum, wheezing, or pleuritic pain Cardiovascular: As per HPI GI : As per HPI Genitourinary: No dysuria, hematuria, flank pain , discharge or CVA tenderness Musculoskeletal: No joint pain, back pain, neck pain, restricted range of motion in neck or joints Skin: No rash, bruising or hives Neuro: No headache, dizziness, syncope, seizure, focal weakness Endocrine: No polyuria, polydipsia, temperature intolerance Psych: No hallucination, depression, anxiety or suicidal ideation PMH/Family/Social Past Medical History HTN, DM, GERD Medications Current Medications Insulin Glargine (Lantus) 28 units ONCE ONCE SC ; Start 10/10/18 at 02:30; Stop 10/10/18 at 02:31; Status UNV Coded Allergies: No Known Allergies (Unverified Allergy, Mild, 10/10/18) Past Surgical History Past Surgical Hx: cholecystectomy Family History Significant Family History: no pertinent family hx Social History Alcohol Use: none Smoking Status: Never smoker Drug Use: none Exam/Review of Systems Vital Signs Vitals Vital Signs Date Temp Pulse Resp B/P (MAP) Pulse Ox O2 O2 Flow FiO2 Time Delivery Rate 10/10/18 98 17 168/86 99 Nasal 2.0 01:13 (113) Cannula 10/09/18 98.0 23:01 Exam Exam General: Pleasant female currently lying in bed in no acute distress HEENT: Atraumatic, normocephalic. The pupils are equal, round and reactive. Extraocular motor are intact Neck: Supple with full range of motion. No rigidity or meningismus Chest: Nontender to palpation Lungs: Clear to auscultation bilaterally no crackles rales or wheezing Heart: Normal S1-S2, Regular rhythm and rate. No murmur, S3, or S4 Abdomen: Obese, soft , nontender, nondistended , bowel sounds are present. No guarding no rebound tenderness , No masses or organomegaly. No costovertebral temporal angle mass Extremities: Normal to inspection, no edema no cyanosis Neurologic: Normal mental status, speech normal, cranial nerves II through XII are intact, motor and sensory are intact, Additional Comments EKG: Normal sinus rhythm at approximately 97 bpm, ST depressions noted in leads I and lead II PROCEDURE: Chest. CLINICAL INDICATION: Chest pain. TECHNIQUE: Single frontal view of the chest was obtained. COMPARISON: 09/10/2018. FINDINGS: The cardiac silhouette is magnified. The aortic arch is unremarkable. There is no focal consolidation, vascular congestion or pleural effusion. There is no pneumothorax. IMPRESSION: No evidence for active cardiopulmonary disease. .Fabricio Grubbs MD, MD Date Time Electronically viewed and signed by .Fabricio Grubbs MD, MD on 10/10/2018 00:53 .T/ CC: JURGEN KENNEDY MD [phone] PABLITO PRUETT October 10, 2018 02:27
[2018-10-10] MEDS ORDERED: INSULIN GLARGINE [LANTus] (100 UNITS/ML) SYG SC ONE (02:30)
[2018-10-10] MEDS ORDERED: ATORVASTATIN 80 MG TAB PO ONE (02:30)
[2018-10-10] MEDS ORDERED: LISINOPRIL 20 MG TAB PO ONE (02:30)
[2018-10-10] MEDS ORDERED: GLUCAGON 1 MG INJ IM PRN (02:36)
[2018-10-10] MEDS ORDERED: GLUCOSE GEL 15 GRAM TUBE BUCCAL PRN (02:36)
[2018-10-10] MEDS ORDERED: GLUCOSE GEL 15 GRAM TUBE PO PRN ×2 (02:36)
[2018-10-10] MEDS ORDERED: DEXTROSE 50% 50 ML SYRINGE IV PRN ×2 (02:36)
[2018-10-10] MEDS ORDERED: HYDR12.53 PO (02:54)
[2018-10-10] MEDS ORDERED: AMLO-147 PO (02:54)
[2018-10-10] MEDS ORDERED: ATOR10TA65 PO (02:54)
[2018-10-10] MEDS ORDERED: HYDR-3671 PO (02:54)
[2018-10-10] MEDS ORDERED: KETO5DRO22 OP (02:54)
[2018-10-10] MEDS ORDERED: INSU100I33 SC (02:54)
[2018-10-10] MEDS ORDERED: LORA10TA3 PO (02:54)
[2018-10-10] MEDS ORDERED: SOD CHLORIDE 0.9% 1,000 ML IV SCH (03:18)
[2018-10-10] MEDS ORDERED: ACETAMINOPHEN 325 MG TAB PO PRN (03:30)
[2018-10-10] MEDS ORDERED: morphine 2 MG INJ IV PRN (03:30)
[2018-10-10] MEDS ORDERED: NITROGLYCERIN (SL) 0.4 MG TAB SL PRN (03:30)
[2018-10-10] MEDS ORDERED: NACL 0.9% 3 ML SYG IV SCH (03:30)
[2018-10-10] MEDS ORDERED: ONDANSETRON 4 MG INJ IV PRN (03:30)
[2018-10-10] MEDS ORDERED: HEPARIN 1000 UNITS/ML 10 ML INJ IV ONE (03:30)
[2018-10-10] MEDS: INSULIN ASPART [NOVOLOG] 3 ML PEN SC SCH ×5 (05:00→21:05)
[2018-10-10] MEDS: HEPARIN 25000 UNITS/250 ML 250 ML IV SCH ×2 (06:17→13:59)
[2018-10-10] MEDS ORDERED: PANTOPRAZOLE (EC) 40 MG TAB PO SCH (08:00)
[2018-10-10] MEDS: ASPIRIN 81 MG TAB PO SCH (08:34)
[2018-10-10] MEDS ORDERED: NON-FORMULARY/PATIENT OWN MED (Omeprazole* 20 MG) PO SCH (09:00)
[2018-10-10] MEDS ORDERED: HYDROCHLOROTHIAZIDE 12.5 MG CAP PO SCH (09:00)
[2018-10-10] MEDS ORDERED: ATENOLOL 50 MG TAB PO SCH (09:00)
[2018-10-10] MEDS ORDERED: LISINOPRIL 20 MG TAB PO SCH (09:00)
[2018-10-10] MEDS ORDERED: HEPARIN 1000 UNITS/ML 10 ML INJ IV PRN (09:30)
[2018-10-10] MEDS: SUCRALFATE 1 GM TAB PO SCH ×4 (11:28→21:06)
[2018-10-10] MEDS ORDERED: ATENOLOL 25 MG TAB PO ONE (11:30)
[2018-10-10] MEDS ORDERED: hydrALAzine 20 MG INJ IV PRN (11:30)
--- NOTE | 2018-10-10 16:11 | PN ---
Date/Time of Note Date/Time of Note DATE: 10/10/18 TIME: 16:06 Assessment/Plan VTE Prophylaxis Risk score (from Ns)>0 risk: 2 SCD applied (from Ns): Yes Pharmacological prophylaxis: heparin Lines/Catheters IV Catheter Type (from Nrs): Saline Lock Urinary Cath still in place: No Assessment/Plan Assessment/Plan 1. NSTEMI - patient denies any current chest pain - troponins trending up and will continue on heparin drip - Cardiology consultation placed and awaiting recommendations - ECHO pending 2. HTN - will adjust atenolol dose but will need to reconcile home medications 3. Diabetes Mellitus - A1c noted - discussed with patient need for better glucose control - Will increase Lantus to 32 units and hold metformin at this time - ISS and accuchecks 4. GERD - continue PPI 5. Disposition - Awaiting cardiology recommendations - continue current care at this time Result Diagram: 10/10/18 0652 10/10/18 0653 Results 24hrs Laboratory Tests Test 10/09/18 23:53 10/10/18 00:00 10/10/18 01:08 10/10/18 03:01 White Blood Count 11.8 H Red Blood Count 3.98 L Hemoglobin 10.6 L Hematocrit 32.8 L Mean Corpuscular 82.4 Volume Mean Corpuscular 26.6 L Hemoglobin Mean Corpuscular 32.3 Hemoglobin Concent Red Cell 13.4 Distribution Width Platelet Count 364 # Mean Platelet Volume 11.5 H Immature 0.300 Granulocytes % Neutrophils % 59.5 Lymphocytes % 30.2 Monocytes % 8.5 Eosinophils % 1.3 Basophils % 0.2 Nucleated Red Blood 0.0 Cells % Immature 0.030 Granulocytes # Neutrophils # 7.0 Lymphocytes # 3.6 H Monocytes # 1.0 H Eosinophils # 0.2 Basophils # 0.0 Nucleated Red Blood 0.0 Cells # Prothrombin Time 11.6 L Prothrombin Time 0.9 Ratio INR International 0.84 Normalized Ratio Activated 28.1 Partial Thromboplast Time Sodium Level 133 L Potassium Level 3.8 Chloride Level 94 L Carbon Dioxide Level 27 Anion Gap 12 Blood Urea Nitrogen 26 H Creatinine 1.17 H Est Glomerular 49 L Filtrat Rate mL/min Glucose Level 447 *H Calcium Level 10.2 Troponin I 0.200 *H Bedside Urine pH 7.0 (LAB) Bedside Urine Negative Protein (LAB) Bedside Urine 0.50% H Glucose (UA) Bedside Urine Negative Ketones (LAB) Bedside Urine Blood Negative Bedside Urine Negative Nitrite (LAB) Bedside Urine Negative Leukocyte Esterase (L POC Beta HCG, NEGATIVE Qualitative Bedside Glucose 383 H Test 10/10/18 03:36 10/10/18 03:37 10/10/18 06:52 10/10/18 06:53 Bedside Glucose 386 H Creatine Kinase 63 62 Creatine Kinase 2.7 3.8 Index Creatinine Kinase MB 1.73 2.35 (Mass) Troponin I 0.312 *H 0.591 *H White Blood Count 8.5 # Red Blood Count 3.92 L Hemoglobin 10.3 L Hematocrit 32.2 L Mean Corpuscular 82.1 Volume Mean Corpuscular 26.3 L Hemoglobin Mean Corpuscular 32.0 Hemoglobin Concent Red Cell 13.7 Distribution Width Platelet Count 380 Mean Platelet Volume 11.7 H Immature 0.200 Granulocytes % Neutrophils % 51.1 Lymphocytes % 38.5 Monocytes % 8.9 Eosinophils % 1.2 Basophils % 0.1 Nucleated Red Blood 0.0 Cells % Immature 0.020 Granulocytes # Neutrophils # 4.3 Lymphocytes # 3.3 H Monocytes # 0.8 Eosinophils # 0.1 Basophils # 0.0 Nucleated Red Blood 0.0 Cells # Hemoglobin A1c 9.7 H Sodium Level 142 Potassium Level 3.7 Chloride Level 101 Carbon Dioxide Level 28 Anion Gap 13 Blood Urea Nitrogen 22 H Creatinine 1.07 H Est Glomerular 55 L Filtrat Rate mL/min Glucose Level 326 H Calcium Level 10.2 Magnesium Level 2.1 Total Bilirubin 0.7 Direct Bilirubin 0.00 Indirect Bilirubin 0.7 Aspartate Amino 19 Transf (AST/SGOT) Alanine 29 Aminotransferase (AL T/SGPT) Alkaline Phosphatase 164 H Total Protein 7.9 Albumin 4.2 Globulin 3.70 H Albumin/Globulin 1.13 Ratio Triglycerides Level 60 Cholesterol Level 103 LDL Cholesterol, 46 Calculated HDL Cholesterol 45 Cholesterol/HDL 2.2 Ratio Thyroid Stimulating 0.036 L Hormone (TSH) Test 10/10/18 07:33 10/10/18 08:30 10/10/18 12:31 10/10/18 13:25 Bedside Glucose 293 H 275 H 251 H Activated 51.3 H Partial Thromboplast Time Creatine Kinase 56 Creatine Kinase 3.3 Index Creatinine Kinase MB 1.87 (Mass) Troponin I 0.627 *H Thyroid Stimulating 0.029 L Hormone (TSH) Free Thyroxine 2.67 H Thyroxine (T4) 13.6 H Total 1.97 H Triiodothyronine Subjective 24 Hr Interval Summary Free Text/Dictation Patient states shes been experiencing a lot of vomiting and stomach discomfort. Denies any chest pain. Discussed need for cardiology evaluation given elevated troponins. Son at bedside helping with translation as well. Exam/Review of Systems Exam Vitals Vital Signs Date Temp Pulse Resp B/P (MAP) Pulse Ox O2 O2 Flow FiO2 Time Delivery Rate 10/10/18 98.2 88 18 165/77 96 15:48 (106) 10/10/18 Room Air 04:00 10/10/18 2.0 03:56 Exam General: Pleasant female currently lying in bed in no acute distress Neck: Supple Chest: Nontender to palpation Lungs: Clear to auscultation bilaterally no crackles rales or wheezing Heart: Normal S1-S2, Regular rhythm and rate. No murmur, S3, or S4 Abdomen: Obese, soft , nontender, nondistended , bowel sounds are present. No guarding no rebound tenderness Ext: no cyanosis, clubbing or edema Results Results 24hrs Laboratory Tests Test 10/09/18 23:53 10/10/18 00:00 10/10/18 01:08 10/10/18 03:01 White Blood Count 11.8 H Red Blood Count 3.98 L Hemoglobin 10.6 L Hematocrit 32.8 L Mean Corpuscular 82.4 Volume Mean Corpuscular 26.6 L Hemoglobin Mean Corpuscular 32.3 Hemoglobin Concent Red Cell 13.4 Distribution Width Platelet Count 364 # Mean Platelet Volume 11.5 H Immature 0.300 Granulocytes % Neutrophils % 59.5 Lymphocytes % 30.2 Monocytes % 8.5 Eosinophils % 1.3 Basophils % 0.2 Nucleated Red Blood 0.0 Cells % Immature 0.030 Granulocytes # Neutrophils # 7.0 Lymphocytes # 3.6 H Monocytes # 1.0 H Eosinophils # 0.2 Basophils # 0.0 Nucleated Red Blood 0.0 Cells # Prothrombin Time 11.6 L Prothrombin Time 0.9 Ratio INR International 0.84 Normalized Ratio Activated 28.1 Partial Thromboplast Time Sodium Level 133 L Potassium Level 3.8 Chloride Level 94 L Carbon Dioxide Level 27 Anion Gap 12 Blood Urea Nitrogen 26 H Creatinine 1.17 H Est Glomerular 49 L Filtrat Rate mL/min Glucose Level 447 *H Calcium Level 10.2 Troponin I 0.200 *H Bedside Urine pH 7.0 (LAB) Bedside Urine Negative Protein (LAB) Bedside Urine 0.50% H Glucose (UA) Bedside Urine Negative Ketones (LAB) Bedside Urine Blood Negative Bedside Urine Negative Nitrite (LAB) Bedside Urine Negative Leukocyte Esterase (L POC Beta HCG, NEGATIVE Qualitative Bedside Glucose 383 H Test 10/10/18 03:36 10/10/18 03:37 10/10/18 06:52 10/10/18 06:53 Bedside Glucose 386 H Creatine Kinase 63 62 Creatine Kinase 2.7 3.8 Index Creatinine Kinase MB 1.73 2.35 (Mass) Troponin I 0.312 *H 0.591 *H White Blood Count 8.5 # Red Blood Count 3.92 L Hemoglobin 10.3 L Hematocrit 32.2 L Mean Corpuscular 82.1 Volume Mean Corpuscular 26.3 L Hemoglobin Mean Corpuscular 32.0 Hemoglobin Concent Red Cell 13.7 Distribution Width Platelet Count 380 Mean Platelet Volume 11.7 H Immature 0.200 Granulocytes % Neutrophils % 51.1 Lymphocytes % 38.5 Monocytes % 8.9 Eosinophils % 1.2 Basophils % 0.1 Nucleated Red Blood 0.0 Cells % Immature 0.020 Granulocytes # Neutrophils # 4.3 Lymphocytes # 3.3 H Monocytes # 0.8 Eosinophils # 0.1 Basophils # 0.0 Nucleated Red Blood 0.0 Cells # Hemoglobin A1c 9.7 H Sodium Level 142 Potassium Level 3.7 Chloride Level 101 Carbon Dioxide Level 28 Anion Gap 13 Blood Urea Nitrogen 22 H Creatinine 1.07 H Est Glomerular 55 L Filtrat Rate mL/min Glucose Level 326 H Calcium Level 10.2 Magnesium Level 2.1 Total Bilirubin 0.7 Direct Bilirubin 0.00 Indirect Bilirubin 0.7 Aspartate Amino 19 Transf (AST/SGOT) Alanine 29 Aminotransferase (AL T/SGPT) Alkaline Phosphatase 164 H Total Protein 7.9 Albumin 4.2 Globulin 3.70 H Albumin/Globulin 1.13 Ratio Triglycerides Level 60 Cholesterol Level 103 LDL Cholesterol, 46 Calculated HDL Cholesterol 45 Cholesterol/HDL 2.2 Ratio Thyroid Stimulating 0.036 L Hormone (TSH) Test 10/10/18 07:33 10/10/18 08:30 10/10/18 12:31 10/10/18 13:25 Bedside Glucose 293 H 275 H 251 H Activated 51.3 H Partial Thromboplast Time Creatine Kinase 56 Creatine Kinase 3.3 Index Creatinine Kinase MB 1.87 (Mass) Troponin I 0.627 *H Thyroid Stimulating 0.029 L Hormone (TSH) Free Thyroxine 2.67 H Thyroxine (T4) 13.6 H Total 1.97 H Triiodothyronine Medications Medication Current Medications Insulin Aspart (Novolog Insulin Pen) NOVOLOG *MILD* ALGORI... Q4 SC Last a dministered on 10/10/18at 13:32; Admin Dose 3 UNIT; Start 10/10/18 at 05:00 Miscellaneous Information 1 ea NOTE XX ; Start 10/10/18 at 02:36 Glucose (Glutose) 15 gm Q15M PRN PO DECREASED GLUCOSE; Start 10/10/18 at 02:36 Glucose (Glutose) 22.5 gm Q15M PRN PO DECREASED GLUCOSE; Start 10/10/18 at 02:3 6 Dextrose (D50w Syringe) 25 ml Q15M PRN IV DECREASED GLUCOSE; Start 10/10/18 at 02:36 Dextrose (D50w Syringe) 50 ml Q15M PRN IV DECREASED GLUCOSE; Start 10/10/18 at 02:36 Glucagon (Glucagen) 1 mg Q15M PRN IM DECREASED GLUCOSE; Start 10/10/18 at 02:36 Glucose (Glutose) 15 gm Q15M PRN BUCCAL DECREASED GLUCOSE; Start 10/10/18 at 02:36 Sodium Chloride 1,000 ml @ 80 mls/hr [id number] IV Last administered on 10/10/18at 03:18; Admin Dose 80 MLS/HR; Start 10/10/18 at 03:18 IV Flush (NS 3 ml) 3 ml PER PROTOCOL IV ; Start 10/10/18 at 03:30 Ondansetron HCl (Zofran Inj) 4 mg Q6H PRN IV NAUSEA/VOMITING; Start 10/10/18 at 03:30 Aspirin (Aspirin) 81 mg DAILY PO Last administered on 10/10/18at 08:34; Admin Dose 81 MG; Start 10/10/18 at 09:00 Nitroglycerin (Nitroglycerin (Sl Tab) 0.4 Mg) 1 tab Q5M PRN SL .CHEST PAIN; Start 10/10/18 at 03:30 Acetaminophen (Tylenol Tab) 650 mg Q6H PRN PO .PAIN 1-3 OR TEMP; Start 10/10/18 at 03:30 Morphine Sulfate (morphine) 2 mg Q4H PRN IV .PAIN 7-10; Start 10/10/18 at 03:30 Heparin Sodium (Porcine) (Heparin (1000 Units/ml)) 4,000 unit PER PROTOCOL PRN IV aPTT<47; Start 10/10/18 at 09:30 Heparin Sodium (Porcine) 250 ml @ 10 mls/hr PER PROTOCOL IV Last administered on 10/10/18at 13:59; Admin Dose 11.5 MLS/HR; Start 10/10/18 at 03:30 Lisinopril (Zestril) 20 mg DAILY PO Last administered on 10/10/18 08:36; Admin Dose 20 MG; Start 10/10/18 at 09:00 Atorvastatin Calcium (Lipitor) 80 mg HS PO ; Start 10/10/18 at 21:00 Pantoprazole (Protonix Tab) 40 mg BID PO ; Start 10/10/18 at 21:00 Sucralfate (Carafate) 1 gm QID PO Last administered on 10/10/18at 13:26; Admin Dose 1 GM; Start 10/10/18 at 11:00 Atenolol (Tenormin) 100 mg DAILY PO ; Start 10/11/18 at 09:00 Hydralazine HCl (Apresoline) 10 mg Q4H PRN IV SBP >170; Start 10/10/18 at 11:30 Insulin Glargine (Lantus) 32 units QHS SC ; Start 10/10/18 at 21:00 JARON ROQUE MD October 10, 2018 16:11
--- NOTE | 2018-10-10 17:40 | RADRPT ---
Echocardiogram Report Patient Name: ZHANNA GILLETTEPatient ID: [id number] : 1970 (48y 5m)Study Date: 10/10/2018 7:47:29 AM Gender: FAccession #: [id number] Tech: SN Location: [facility] Ref.Physician: PABLITO PRUETT Height(Cm): BSA: Weight(Kg): Quality: AdequateOrder Physician: PABLITO PRUETT Account #: Procedures: Echocardiographic Report: Transthoracic echocardiogram with complete 2D, M-Mode, and doppler examination. Indications: NSTEMI. Measurements: 2D/M Mode Doppler Measurement Value Normal Range Measurement Value Normal Range LVIDd 2D 3.8 [ 3.8 - 5.2 ] cm AV Peak [place] 1.4 [ 100.0 - 170.0 ] cm/sec LVIDs 2D 2.4 [ 2.2 - 3.5 ] cm AV Peak PG 8.0 [ 2.0 - 9.0 ] mmHg LVPWd 2D 1.2 [ 0.6 - 0.9 ] cm LVOT Peak [place] 1.0 [ 70.0 - 110.0 ] cm/sec IVSd 2D 1.3 [ 0.6 - 0.9 ] cm LVOT Peak PG 4.0 [ 2.0 - 6.0 ] mmHg AoR Diam 2D 2.8 [ 2.3 - 3.1 ] cm MV E Peak [place] 0.9 [ 60.0 - 130.0 ] cm/sec EDV 2D 62.3 [ 46.0 - 106.0 ] ml MV A Peak [place] 1.1 [ 100.0 - 120.0 ] cm/sec ESV 2D 20.4 [ 14.0 - 42.0 ] ml MV E/A 0.8 [ 0.8 - 1.5 ] ratio EF 2D 67.3 [ 54.0 - 74.0 ] percent MV Decel Time 95 [ 104 - 258 ] msec LA Dimen 2D 3.4 [ 2.7 - 3.8 ] cm Lat E` [place] 0.1 [ 10.0 - 15.0 ] cm/sec Lateral E/E` 10.0 [ 1.0 - 2.0 ] ratio MV E/A 0.8 [ 0.8 - 1.5 ] ratio RA Pressure 3.0 mmHg Findings: Left Ventricle: Normal left ventricular systolic function. Normal left ventricular cavity size. Mild concentric left ventricular hypertrophy. Ejection fraction is visually estimated at 65 %. Tissue Doppler/Mitral Doppler indices are consistent with impaired relaxation (Stage I diastolic dysfunction). Right Ventricle: Normal right ventricular size. Normal right ventricular systolic function. Left Atrium: The left atrium is normal in size. Right Atrium: The right atrium is normal in size. Mitral Valve: Mild mitral leaflet calcification. Mild mitral annular calcification. Trace mitral regurgitation. Aortic Valve: No hemodynamically significant aortic stenosis by doppler. Aortic cusps appear mildly calcified. Trace to mild aortic valve regurgitation. Tricuspid Valve: Normal appearance of the tricuspid valve. Unable to obtain RVSP due to minimal presence of tricuspid regurgitation. Pericardium: Trivial pericardial effusion. Left pleural effusion seen. Aorta: Normal aortic root. IVC: Normal size and normal respiratory collapse consistent with normal right atrial pressure. Conclusions: Normal left ventricular systolic function. Normal left ventricular cavity size. Mild concentric left ventricular hypertrophy. Ejection fraction is visually estimated at 65 %. Tissue Doppler/Mitral Doppler indices are consistent with impaired relaxation (Stage I diastolic dysfunction). Electronically Signed By: José Miguel Bernardo 2018-10-10 17:40:33 PDT
--- NOTE | 2018-10-10 18:46 | CONS ---
Assessment/Plan Assessment/Plan Hospital Course (Demo Recall) Assessment: NSTEMI - clinical presentation concerning for acute coronary syndrome; EKG with inferolateral ST depressions, troponin trending up to 0.6 Acute kidney injury Hyperthyroidism - management per primary team Hypertension Dyslipidemia Diabetes mellitus Recommendations: -continue heparin drip -continue aspirin 81mg daily -continue atorvastatin 80mg daily -change atenolol to carvedilol 25mg BID -hold lisinopril, monitor renal function -echocardiogram showed normal LVEF 65%, mild LVH with grade 1 diastolic dysfunction -arrange for coronary angiography -hold metformin in preparation for coronary angiography Consultation Date/Type/Reason Admit Date/Time Type of Consult Cardiology Reason for Consultation chest pain, elevated troponin Date/Time of Note DATE: 10/10/18 TIME: 18:40 Hx of Present Illness The patient is a 48 year-old female who presented with chest pain. She describes a sharp chest pain with radiation to the right arm and back. EKG showed sinus rhythm with inferior and lateral ST depression. Initial troponin was elevated at 0.2 and has trended up 0.6. Chest CTA was negative for aortic dissection or pulmonary embolism. 14 point review of systems negative other than per HPI. Past Medical History Hypertension Dyslipidemia Diabetes mellitus Home Meds Active Scripts Fluticasone Propionate (Flonase Allergy Relief) 9.9 Ml [place].susp, 1 SPRAY NASAL BID, #1 BOTTLE TO EACH NOSTRIL Prov:MARIAN LAGUNAS MD 03/07/18 Benzonatate* (Tessalon Perle*) 100 Mg Capsule, 100 MG PO Q8H PRN for COUGH, #20 CAP Prov:ENRIQUE MCKEON PA-C 07/17/17 Reported Medications Ketotifen Fumarate (KETOTIFEN FUMARATE) 5 Ml Drops, 5 ML OP DAILY, BOTTLE INSTILL 1 DROP INTO AFFECTED EYE ONCE DAILY 10/10/18 Hydrochlorothiazide (Hydrochlorothiazide) 12.5 Mg Capsule, 12.5 MG PO DAILY for 30 Days, #30 10/10/18 Atorvastatin (Atorvastatin) 10 Mg Tablet, 10 MG PO QHS for 90 Days, #90 10/10/18 Loratadine* (Loratadine*) 10 Mg Tablet, 10 MG PO DAILY 10/10/18 Amlodipine Besylate* (Amlodipine Besylate*) 10 Mg Tablet, 10 MG PO DAILY, #30 TAB 10/10/18 Insulin Glargine,Hum.rec.anlog (Basaglar Linusikpen U-100) 100 Unit/1 Ml Insuln.pen, 28 UNIT SC QHS, EA 10/10/18 Hydralazine Hcl* (Hydralazine Hcl*) 25 Mg Tab, 25 MG PO BID for 30 Days, #60 10/10/18 Fluticasone Propionate* (Fluticasone Propionate* Nasal) 50 Mcg/[place] - 16 Gm [place].susp, 2 SPRAYS NASAL DAILY, #1 BOTTLE TO EACH NOSTRIL 10/10/16 Omeprazole* (Omeprazole*) 20 Mg Capsule.dr, 20 MG PO DAILY, #30 CAP 10/10/16 Metformin* (Glucophage*) 1,000 Mg Tablet, 1000 MG PO BID, TAB 07/01/14 Losartan Potassium* (Losartan Potassium*) 50 Mg Tablet, 50 MG PO BID, TAB 07/01/14 Atenolol* (Atenolol*) 50 Mg Tablet, 50 MG PO DAILY, TAB 07/01/14 Glyburide* (Diabeta*) 5 Mg Tablet, 5 MG PO BID 11/01/10 Discontinued Reported Medications Acetaminophen* (Acetaminophen*) 500 MG Extra Strength Tablet, 500 MG PO Q4H PRN for PAIN AND OR ELEVATED TEMP, TAB 10/10/16 Discontinued Scripts Acetaminophen* (Tylophen*) 500 Mg Capsule, 1 CAP PO Q6H PRN for PAIN AND OR ELEVATED TEMP, #20 CAP Prov:INGRIS PINTO 09/10/18 Ondansetron Hcl* (Zofran*) 4 Mg Tablet, 4 MG PO Q8H PRN for NAUSEA AND/OR VOMITING, #30 TAB Prov:INGRIS PINTO F 09/10/18 Ibuprofen* (Motrin*) 600 Mg Tab, 600 MG PO Q6H PRN for PAIN AND OR ELEVATED TEMP, #30 TAB Prov:INGRIS PINTO F 09/10/18 Acetamin/Butalbital/Caffeine* (Fioricet*) [id number] Tab, 1 TAB PO Q6H PRN for PAIN, #30 TAB Prov:IVONNE MUHAMMAD PA-C 06/30/18 Phenazopyridine Hcl* (Pyridium*) 200 Mg Tab, 200 MG PO TID PRN for URINARY PAIN, #15 TAB Prov:DEBORA YANEZC 12/05/17 Naproxen* (Naprosyn*) 500 Mg Tablet, 500 MG PO BID PRN for PAIN AND/OR INFLAMMATION, #30 TAB Prov:DEBORA YANEZ-C 12/05/17 Oseltamivir Phosphate* (Tamiflu*) 75 Mg Capsule, 75 MG PO BID for 5 Days, CAP Prov:ENRIQUE MCKEON PA-C 07/17/17 Azithromycin* (Zithromax*) 250 Mg Tablet, 250 MG PO .ZPACK DIRECTED, #6 TAB TAKE 500 MG (2 TABS) THE FIRST DAY THEN 250 MG (1 TAB) DAYS 2-5 Prov:ENRIQUE MCKEON PA-C 07/17/17 Promethazine HCl/Codeine (Prometh-Codein 6.25-10 mg/5 ml) 5 Ml Syrup, 5 ML PO QHS for 5 Days, #120 ML Prov:CLEOPATRA OROURKE MD 03/26/17 Ibuprofen* (Motrin*) 600 Mg Tab, 600 MG PO Q8, #30 TAB Prov:CLEOPATRA OROURKE MD 03/26/17 Azithromycin* (Zithromax*) 250 Mg Tablet, 250 MG PO .ZPACK DIRECTED, #6 TAB TAKE 500 MG (2 TABS) THE FIRST DAY THEN 250 MG (1 TAB) DAYS 2-5 Prov:CLEOPATRA OROURKE MD 03/26/17 Benzonatate* (Tessalon Perle*) 100 Mg Capsule, 100 MG PO Q8H PRN for COUGH, #20 CAP Prov:ENRIQUE MCKEON PA-C 01/13/17 Azithromycin* (Zithromax*) 250 Mg Tablet, 250 MG PO .ZPACK DIRECTED, #6 TAB TAKE 500 MG (2 TABS) THE FIRST DAY THEN 250 MG (1 TAB) DAYS 2-5 Prov:ENRIQUE MCKEON PA-C 01/13/17 Bismuth Subsalicylate* (Pepto-Bismol*) 262 Mg/15 Ml Oral.susp, 15 ML PO Q3H PRN for DIARRHEA for 4 Days, ML Prov:SAIGE SALEH MD 01/03/17 Ondansetron (Ondansetron Odt) 8 Mg Tab.rapdis, 8 MG PO Q6H PRN for NAUSEA AND/OR VOMITING, #8 TAB Prov:SAIGE SALEH MD 01/03/17 Phenazopyridine Hcl* (Pyridium*) 100 Mg Tab, 100 MG PO TID, #8 TAB Prov:JONATHON WILD PA-C 01/02/17 Nitrofurantoin Monohyd Macrocr* (Macrobid*) 100 Mg Capsr, 100 MG PO BID for 7 Days, CAP Prov:JONATHON WILD PA-C 01/02/17 Ranitidine Hcl* (Zantac*) 150 Mg Tablet, 150 MG PO BID PRN for EPIGASTRIC PAIN, #30 TAB Prov:LUIS BRAR DO 10/11/16 Naproxen* (Naproxen*) 500 Mg Tablet, 500 MG PO BID PRN for PAIN, #20 TAB Prov:LUIS BRAR DO 10/11/16 Ibuprofen* (Motrin*) 600 Mg Tab, 600 MG PO Q6, #20 TAB Prov:SAIGE SALEH MD 03/05/15 Meclizine Hcl* (Antivert*) 25 Mg Tablet, 25 MG PO Q6H PRN for ANXIETY, #20 TAB Prov:MICHAELA MURGUIA MD 12/21/14 Medications Current Medications Insulin Aspart (Novolog Insulin Pen) NOVOLOG *MILD* ALGORI... Q4 SC Last administered on 10/10/18at 18:11; Admin Dose 3 UNIT; Start 10/10/18 at 05:00 Miscellaneous Information 1 ea NOTE XX ; Start 10/10/18 at 02:36 Glucose (Glutose) 15 gm Q15M PRN PO DECREASED GLUCOSE; Start 10/10/18 at 02:36 Glucose (Glutose) 22.5 gm Q15M PRN PO DECREASED GLUCOSE; Start 10/10/18 at 02:36 Dextrose (D50w Syringe) 25 ml Q15M PRN IV DECREASED GLUCOSE; Start 10/10/18 at 02:36 Dextrose (D50w Syringe) 50 ml Q15M PRN IV DECREASED GLUCOSE; Start 10/10/18 at 02:36 Glucagon (Glucagen) 1 mg Q15M PRN IM DECREASED GLUCOSE; Start 10/10/18 at 02:36 Glucose (Glutose) 15 gm Q15M PRN BUCCAL DECREASED GLUCOSE; Start 10/10/18 at 02:36 IV Flush (NS 3 ml) 3 ml PER PROTOCOL IV ; Start 10/10/18 at 03:30 Ondansetron HCl (Zofran Inj) 4 mg Q6H PRN IV NAUSEA/VOMITING; Start 10/10/18 at 03:30 Aspirin (Aspirin) 81 mg DAILY PO Last administered on 10/10/18at 08:34; Admin Dose 81 MG; Start 10/10/18 at 09:00 Nitroglycerin (Nitroglycerin (Sl Tab) 0.4 Mg) 1 tab Q5M PRN SL .CHEST PAIN; Start 10/10/18 at 03:30 Acetaminophen (Tylenol Tab) 650 mg Q6H PRN PO .PAIN 1-3 OR TEMP; Start 10/10/18 at 03:30 Morphine Sulfate (morphine) 2 mg Q4H PRN IV .PAIN 7-10; Start 10/10/18 at 03:30 Heparin Sodium (Porcine) (Heparin (1000 Units/ml)) 4,000 unit PER PROTOCOL PRN IV aPTT<47; Start 10/10/18 at 09:30 Heparin Sodium (Porcine) 250 ml @ 10 mls/hr PER PROTOCOL IV Last administered on 10/10/18at 13:59; Admin Dose 11.5 MLS/HR; Start 10/10/18 at 03:30 Lisinopril (Zestril) 20 mg DAILY PO Last administered on 10/10/18at 08:36; Admin Dose 20 MG; Start 10/10/18 at 09:00 Atorvastatin Calcium (Lipitor) 80 mg HS PO ; Start 10/10/18 at 21:00 Pantoprazole (Protonix Tab) 40 mg BID PO ; Start 10/10/18 at 21:00 Sucralfate (Carafate) 1 gm QID PO Last administered on 10/10/18at 18:02; Admin Dose 1 GM; Start 10/10/18 at 11:00 Atenolol (Tenormin) 100 mg DAILY PO ; Start 10/11/18 at 09:00 Hydralazine HCl (Apresoline) 10 mg Q4H PRN IV SBP >170; Start 10/10/18 at 11:30 Insulin Glargine (Lantus) 32 units QHS SC ; Start 10/10/18 at 21:00 Allergies: Coded Allergies: No Known Allergies (Unverified Allergy, Mild, 10/10/18) Past Surgical History Past Surgical Hx: cholecystectomy Family History Significant Family History: heart disease (mother and brother with coronary artery disease) Social History Alcohol Use: none Smoking Status: Never smoker Drug Use: none Exam/Review of Systems Vital Signs Vitals Vital Signs Date Temp Pulse Resp B/P (MAP) Pulse Ox O2 O2 Flow FiO2 Time Delivery Rate 10/10/18 84 16:19 10/10/18 98.2 18 165/77 96 15:48 (106) 10/10/18 Room Air 04:00 10/10/18 2.0 03:56 Exam Constitutional: alert, well developed Psych: no complaints, nl mood/affect Head: normocephalic, atraumatic Eyes: nl conjunctiva, nl lids ENMT: nl external ears & nose, nl nasal mucosa & septum Neck: supple, non-tender; No jvd Respiratory: clear to auscultation, normal air movement Cardiovascular: regular rate and rhythm Gastrointestinal: soft, non-tender Musculoskeletal: nl extremities to inspection Extremities: No cyanosis, No clubbing, No edema Neurological: nl mental status, nl speech Labs Result Diagram: 10/10/18 0652 10/10/18 0653 Results 24hrs Laboratory Tests Test 10/09/18 23:53 10/10/18 00:00 10/10/18 01:08 10/10/18 03:01 White Blood Count 11.8 H Red Blood Count 3.98 L Hemoglobin 10.6 L Hematocrit 32.8 L Mean Corpuscular 82.4 Volume Mean Corpuscular 26.6 L Hemoglobin Mean Corpuscular 32.3 Hemoglobin Concent Red Cell 13.4 Distribution Width Platelet Count 364 # Mean Platelet Volume 11.5 H Immature 0.300 Granulocytes % Neutrophils % 59.5 Lymphocytes % 30.2 Monocytes % 8.5 Eosinophils % 1.3 Basophils % 0.2 Nucleated Red Blood 0.0 Cells % Immature 0.030 Granulocytes # Neutrophils # 7.0 Lymphocytes # 3.6 H Monocytes # 1.0 H Eosinophils # 0.2 Basophils # 0.0 Nucleated Red Blood 0.0 Cells # Prothrombin Time 11.6 L Prothrombin Time 0.9 Ratio INR International 0.84 Normalized Ratio Activated 28.1 Partial Thromboplast Time Sodium Level 133 L Potassium Level 3.8 Chloride Level 94 L Carbon Dioxide Level 27 Anion Gap 12 Blood Urea Nitrogen 26 H Creatinine 1.17 H Est Glomerular 49 L Filtrat Rate mL/min Glucose Level 447 *H Calcium Level 10.2 Troponin I 0.200 *H Bedside Urine pH 7.0 (LAB) Bedside Urine Negative Protein (LAB) Bedside Urine 0.50% H Glucose (UA) Bedside Urine Negative Ketones (LAB) Bedside Urine Blood Negative Bedside Urine Negative Nitrite (LAB) Bedside Urine Negative Leukocyte Esterase (L Free 9.53 H Triiodothyronine (T3) pg/mL POC Beta HCG, NEGATIVE Qualitative Bedside Glucose 383 H Test 10/10/18 03:36 10/10/18 03:37 10/10/18 06:52 10/10/18 06:53 Bedside Glucose 386 H Creatine Kinase 63 62 Creatine Kinase 2.7 3.8 Index Creatinine Kinase MB 1.73 2.35 (Mass) Troponin I 0.312 *H 0.591 *H White Blood Count 8.5 # Red Blood Count 3.92 L Hemoglobin 10.3 L Hematocrit 32.2 L Mean Corpuscular 82.1 Volume Mean Corpuscular 26.3 L Hemoglobin Mean Corpuscular 32.0 Hemoglobin Concent Red Cell 13.7 Distribution Width Platelet Count 380 Mean Platelet Volume 11.7 H Immature 0.200 Granulocytes % Neutrophils % 51.1 Lymphocytes % 38.5 Monocytes % 8.9 Eosinophils % 1.2 Basophils % 0.1 Nucleated Red Blood 0.0 Cells % Immature 0.020 Granulocytes # Neutrophils # 4.3 Lymphocytes # 3.3 H Monocytes # 0.8 Eosinophils # 0.1 Basophils # 0.0 Nucleated Red Blood 0.0 Cells # Hemoglobin A1c 9.7 H Sodium Level 142 Potassium Level 3.7 Chloride Level 101 Carbon Dioxide Level 28 Anion Gap 13 Blood Urea Nitrogen 22 H Creatinine 1.07 H Est Glomerular 55 L Filtrat Rate mL/min Glucose Level 326 H Calcium Level 10.2 Magnesium Level 2.1 Total Bilirubin 0.7 Direct Bilirubin 0.00 Indirect Bilirubin 0.7 Aspartate Amino 19 Transf (AST/SGOT) Alanine 29 Aminotransferase (AL T/SGPT) Alkaline Phosphatase 164 H Total Protein 7.9 Albumin 4.2 Globulin 3.70 H Albumin/Globulin 1.13 Ratio Triglycerides Level 60 Cholesterol Level 103 LDL Cholesterol, 46 Calculated HDL Cholesterol 45 Cholesterol/HDL 2.2 Ratio Thyroid Stimulating 0.036 L Hormone (TSH) Test 10/10/18 07:33 10/10/18 08:30 10/10/18 12:31 10/10/18 13:25 Bedside Glucose 293 H 275 H 251 H Activated 51.3 H Partial Thromboplast Time Creatine Kinase 56 Creatine Kinase 3.3 Index Creatinine Kinase MB 1.87 (Mass) Troponin I 0.627 *H Thyroid Stimulating 0.029 L Hormone (TSH) Free Thyroxine 2.67 H Thyroxine (T4) 13.6 H Total 1.97 H Triiodothyronine Test 10/10/18 18:03 Bedside Glucose 244 H Medications Medications Current Medications Insulin Aspart (Novolog Insulin Pen) NOVOLOG *MILD* ALGORI... Q4 SC Last admin istered on 10/10/18at 18:11; Admin Dose 3 UNIT; Start 10/10/18 at 05:00 Miscellaneous Information 1 ea NOTE XX ; Start 10/10/18 at 02:36 Glucose (Glutose) 15 gm Q15M PRN PO DECREASED GLUCOSE; Start 10/10/18 at 02:36 Glucose (Glutose) 22.5 gm Q15M PRN PO DECREASED GLUCOSE; Start 10/10/18 at 02:36 Dextrose (D50w Syringe) 25 ml Q15M PRN IV DECREASED GLUCOSE; Start 10/10/18 at 02:36 Dextrose (D50w Syringe) 50 ml Q15M PRN IV DECREASED GLUCOSE; Start 10/10/18 at 02:36 Glucagon (Glucagen) 1 mg Q15M PRN IM DECREASED GLUCOSE; Start 10/10/18 at 02:36 Glucose (Glutose) 15 gm Q15M PRN BUCCAL DECREASED GLUCOSE; Start 10/10/18 at 02:36 IV Flush (NS 3 ml) 3 ml PER PROTOCOL IV ; Start 10/10/18 at 03:30 Ondansetron HCl (Zofran Inj) 4 mg Q6H PRN IV NAUSEA/VOMITING; Start 10/10/18 at 03:30 Aspirin (Aspirin) 81 mg DAILY PO Last administered on 10/10/18at 08:34; Admin Dose 81 MG; Start 10/10/18 at 09:00 Nitroglycerin (Nitroglycerin (Sl Tab) 0.4 Mg) 1 tab Q5M PRN SL .CHEST PAIN; Start 10/10/18 at 03:30 Acetaminophen (Tylenol Tab) 650 mg Q6H PRN PO .PAIN 1-3 OR TEMP; Start 10/10/18 at 03:30 Morphine Sulfate (morphine) 2 mg Q4H PRN IV .PAIN 7-10; Start 10/10/18 at 03:30 Heparin Sodium (Porcine) (Heparin (1000 Units/ml)) 4,000 unit PER PROTOCOL PRN IV aPTT<47; Start 10/10/18 at 09:30 Heparin Sodium (Porcine) 250 ml @ 10 mls/hr PER PROTOCOL IV Last administered on 10/10/18at 13:59; Admin Dose 11.5 MLS/HR; Start 10/10/18 at 03:30 Lisinopril (Zestril) 20 mg DAILY PO Last administered on 10/10/18at 08:36; Admin Dose 20 MG; Start 10/10/18 at 09:00 Atorvastatin Calcium (Lipitor) 80 mg HS PO ; Start 10/10/18 at 21:00 Pantoprazole (Protonix Tab) 40 mg BID PO ; Start 10/10/18 at 21:00 Sucralfate (Carafate) 1 gm QID PO Last administered on 10/10/18at 18:02; Admin Dose 1 GM; Start 10/10/18 at 11:00 Atenolol (Tenormin) 100 mg DAILY PO ; Start 10/11/18 at 09:00 Hydralazine HCl (Apresoline) 10 mg Q4H PRN IV SBP >170; Start 10/10/18 at 11:30 Insulin Glargine (Lantus) 32 units QHS SC ; Start 10/10/18 at 21:00 JOCELINE DAVEY MD October 10, 2018 18:46
[2018-10-10] MEDS: PANTOPRAZOLE (EC) 40 MG TAB PO SCH (20:50)
[2018-10-10] MEDS: ATORVASTATIN 80 MG TAB PO SCH (20:50)
[2018-10-10] MEDS ORDERED: INSULIN GLARGINE [LANTus] (100 UNITS/ML) SYG SC SCH (21:00)
[2018-10-10] MEDS: INSULIN GLARGINE [LANTus] (100 UNITS/ML) SYG SC SCH (21:06)
[2018-10-11] VITALS (14 sets, daily range): BP systolic 127–161; BP diastolic 63–87; PULSE 63–90; RESP 17–18
[2018-10-11] MEDS: INSULIN ASPART [NOVOLOG] 3 ML PEN SC SCH ×5 (01:28→21:22)
[2018-10-11] MEDS: HEPARIN 25000 UNITS/250 ML 250 ML IV SCH ×4 (01:29→23:27)
[2018-10-11] MEDS ORDERED: ACCU-CHEK XX SCH (02:00)
[2018-10-11] MEDS: Insulin NOVOLOG SS MILD Algorithm (SS with meals and bedtime) SC SCH ×2 (07:55→12:04)
[2018-10-11] MEDS ORDERED: INSULIN ASPART [NOVOLOG] 3 ML PEN SC SCH (07:55)
[2018-10-11] MEDS: SUCRALFATE 1 GM TAB PO SCH ×4 (08:25→21:10)
[2018-10-11] MEDS: ASPIRIN 81 MG TAB PO SCH (08:25)
[2018-10-11] MEDS: PANTOPRAZOLE (EC) 40 MG TAB PO SCH ×2 (08:25→21:10)
[2018-10-11] MEDS ORDERED: ATENOLOL 100 MG TAB PO SCH (09:00)
--- NOTE | 2018-10-11 09:36 | PN ---
Date/Time of Note Date/Time of Note DATE: 10/11/18 TIME: 09:36 Assessment/Plan VTE Prophylaxis Risk score (from Ns)>0 risk: 1 SCD applied (from Ns): No SCD contraindicated: low risk/ambulating Pharmacological prophylaxis: heparin Lines/Catheters IV [facility] Urinary Cath still in place: No Assessment/Plan Assessment/Plan 1. NSTEMI - currently asymptomatic - Cardiology consultation appreciated and will plan for cardiac cath tomorrow. Continue on heparin drip - troponins trending up - ECHO results noted with preserved EF 2. HTN - on coreg and norvasc. will adjust as needed for BP control 3. Diabetes Mellitus - A1c noted - Will continue on Lantus and hold metformin - ISS and accuchecks 4. hyperthyroidism - will give a dose of methimazole 30mg now then continue daily dose of 5mg. Will need to follow up with outpatient 5. GERD - continue PPI 6. Disposition - Plans for cardiac cath tomorrow per Cardiology - will start treatment hyperthyroidism Result Diagram: 10/11/18 0316 10/11/18 0316 Results 24hrs Laboratory Tests Test 10/10/18 12:31 10/10/18 13:25 10/10/18 18:03 10/10/18 19:43 Activated 51.3 H 56.7 H Partial Thromboplast Time Creatine Kinase 56 Creatine Kinase 3.3 Index Creatinine Kinase MB 1.87 (Mass) Troponin I 0.627 *H Thyroid Stimulating 0.029 L Hormone (TSH) Free Thyroxine 2.67 H Thyroxine (T4) 13.6 H Total 1.97 H Triiodothyronine Bedside Glucose 251 H 244 H Test 10/10/18 20:55 10/11/18 00:36 10/11/18 03:16 10/11/18 05:21 Bedside Glucose 250 H 212 181 White Blood Count 9.0 Red Blood Count 3.72 L Hemoglobin 10.0 L Hematocrit 30.5 L Mean Corpuscular 82.0 Volume Mean Corpuscular 26.9 L Hemoglobin Mean Corpuscular 32.8 Hemoglobin Concent Red Cell 13.3 Distribution Width Platelet Count 349 Mean Platelet Volume 11.6 H Immature 0.300 Granulocytes % Neutrophils % 40.7 Lymphocytes % 47.9 Monocytes % 8.7 Eosinophils % 2.1 Basophils % 0.3 Nucleated Red Blood 0.0 Cells % Immature 0.030 Granulocytes # Neutrophils # 3.7 Lymphocytes # 4.3 H Monocytes # 0.8 Eosinophils # 0.2 Basophils # 0.0 Nucleated Red Blood 0.0 Cells # Activated 69.7 H Partial Thromboplast Time Sodium Level 138 Potassium Level 3.5 Chloride Level 97 Carbon Dioxide Level 27 Anion Gap 14 H Blood Urea Nitrogen 20 Creatinine 1.04 H Est Glomerular 57 L Filtrat Rate mL/min Glucose Level 196 # Calcium Level 9.6 Total Bilirubin 0.8 Direct Bilirubin 0.00 Indirect Bilirubin 0.8 Aspartate Amino 18 Transf (AST/SGOT) Alanine 26 Aminotransferase (AL T/SGPT) Alkaline Phosphatase 113 Total Protein 7.5 Albumin 3.9 Globulin 3.60 H Albumin/Globulin 1.08 Ratio Test 10/11/18 07:27 Bedside Glucose 122 Subjective 24 Hr Interval Summary Free Text/Dictation Patient is complaining of gas and bloating but denies any chest pain or shortness of breath. Exam/Review of Systems Exam Vitals Vital Signs Date Temp Pulse Resp B/P (MAP) Pulse Ox O2 O2 Flow FiO2 Time Delivery Rate 10/11/18 80 144/63 09:34 (90) 10/11/18 97.7 18 100 07:42 10/10/18 Room Air 04:00 10/10/18 2.0 03:56 Intake and Output 10/10/18 10/10/18 10/11/18 1515:00 23:00 07:00 IntakeIntake Total 1040 ml 800 ml OutputOutput Total 600 ml BalanceBalance 440 ml 800 ml Exam General: Pleasant female currently lying in bed in no acute distress Neck: Supple Chest: Nontender to palpation Lungs: Clear to auscultation bilaterally no crackles rales or wheezing Heart: Normal S1-S2, Regular rhythm and rate. No murmur, S3, or S4 Abdomen: Obese, soft , nontender, mildly distended , bowel sounds are present. No guarding no rebound tenderness Ext: no cyanosis, clubbing or edema Results Results 24hrs Laboratory Tests Test 10/10/18 12:31 10/10/18 13:25 10/10/18 18:03 10/10/18 19:43 Activated 51.3 H 56.7 H Partial Thromboplast Time Creatine Kinase 56 Creatine Kinase 3.3 Index Creatinine Kinase MB 1.87 (Mass) Troponin I 0.627 *H Thyroid Stimulating 0.029 L Hormone (TSH) Free Thyroxine 2.67 H Thyroxine (T4) 13.6 H Total 1.97 H Triiodothyronine Bedside Glucose 251 H 244 H Test 10/10/18 20:55 10/11/18 00:36 10/11/18 03:16 10/11/18 05:21 Bedside Glucose 250 H 212 181 White Blood Count 9.0 Red Blood Count 3.72 L Hemoglobin 10.0 L Hematocrit 30.5 L Mean Corpuscular 82.0 Volume Mean Corpuscular 26.9 L Hemoglobin Mean Corpuscular 32.8 Hemoglobin Concent Red Cell 13.3 Distribution Width Platelet Count 349 Mean Platelet Volume 11.6 H Immature 0.300 Granulocytes % Neutrophils % 40.7 Lymphocytes % 47.9 Monocytes % 8.7 Eosinophils % 2.1 Basophils % 0.3 Nucleated Red Blood 0.0 Cells % Immature 0.030 Granulocytes # Neutrophils # 3.7 Lymphocytes # 4.3 H Monocytes # 0.8 Eosinophils # 0.2 Basophils # 0.0 Nucleated Red Blood 0.0 Cells # Activated 69.7 H Partial Thromboplast Time Sodium Level 138 Potassium Level 3.5 Chloride Level 97 Carbon Dioxide Level 27 Anion Gap 14 H Blood Urea Nitrogen 20 Creatinine 1.04 H Est Glomerular 57 L Filtrat Rate mL/min Glucose Level 196 # Calcium Level 9.6 Total Bilirubin 0.8 Direct Bilirubin 0.00 Indirect Bilirubin 0.8 Aspartate Amino 18 Transf (AST/SGOT) Alanine 26 Aminotransferase (AL T/SGPT) Alkaline Phosphatase 113 Total Protein 7.5 Albumin 3.9 Globulin 3.60 H Albumin/Globulin 1.08 Ratio Test 10/11/18 07:27 Bedside Glucose 122 Medications Medication Current Medications Miscellaneous Information 1 ea NOTE XX ; Start 10/10/18 at 02:36 Glucose (Glutose) 15 gm Q15M PRN PO DECREASED GLUCOSE; Start 10/10/18 at 02:36 Glucose (Glutose) 22.5 gm Q15M PRN PO DECREASED GLUCOSE; Start 10/10/18 at 02:36 Dextrose (D50w Syringe) 25 ml Q15M PRN IV DECREASED GLUCOSE; Start 10/10/18 at 02:36 Dextrose (D50w Syringe) 50 ml Q15M PRN IV DECREASED GLUCOSE; Start 10/10/18 at 02:36 Glucagon (Glucagen) 1 mg Q15M PRN IM DECREASED GLUCOSE; Start 10/10/18 at 02:36 Glucose (Glutose) 15 gm Q15M PRN BUCCAL DECREASED GLUCOSE; Start 10/10/18 at 02:36 IV Flush (NS 3 ml) 3 ml PER PROTOCOL IV ; Start 10/10/18 at 03:30 Ondansetron HCl (Zofran Inj) 4 mg Q6H PRN IV NAUSEA/VOMITING; Start 10/10/18 at 03:30 Aspirin (Aspirin) 81 mg DAILY PO Last administered on 10/11/18 08:25; Admin Dose 81 MG; Start 10/10/18 at 09:00 Nitroglycerin (Nitroglycerin (Sl Tab) 0.4 Mg) 1 tab Q5M PRN SL .CHEST PAIN; Start 10/10/18 at 03:30 Acetaminophen (Tylenol Tab) 650 mg Q6H PRN PO .PAIN 1-3 OR TEMP; Start 10/10/18 at 03:30 Morphine Sulfate (morphine) 2 mg Q4H PRN IV .PAIN 7-10; Start 10/10/18 at 03:30 Heparin Sodium (Porcine) (Heparin (1000 Units/ml)) 4,000 unit PER PROTOCOL PRN IV aPTT<47; Start 10/10/18 at 09:30 Heparin Sodium (Porcine) 250 ml @ 10 mls/hr PER PROTOCOL IV Last administered on 10/11/18 01:29; Admin Dose 13 MLS/HR; Start 10/10/18 at 03:30 Atorvastatin Calcium (Lipitor) 80 mg HS PO Last administered on 10/10/18 20:50; Admin Dose 80 MG; Start 10/10/18 at 21:00 Pantoprazole (Protonix Tab) 40 mg BID PO Last administered on 10/11/18 08:25; Admin Dose 40 MG; Start 10/10/18 at 21:00 Sucralfate (Carafate) 1 gm QID PO Last administered on 10/11/18 08:25; Admin Dose 1 GM; Start 10/10/18 at 11:00 Hydralazine HCl (Apresoline) 10 mg Q4H PRN IV SBP >160; Start 10/10/18 at 11:30 Insulin Glargine (Lantus) 32 units QHS SC Last administered on 5/18/19at 21:06; Admin Dose 32 UNITS; Start 10/10/18 at 21:00 Carvedilol (Coreg) 25 mg BID PO Last administered on 10/11/18at 08:26; Admin Dose 25 MG; Start 10/10/18 at 21:00 Insulin Aspart (Novolog Insulin Pen) (Adult SC Insulin - Mild Algorithm)... WITH MEALS BEDTIME SC ; Start 10/11/18 at 07:55 JARON ROQUE MD October 11, 2018 09:36
--- NOTE | 2018-10-11 11:01 | CONS ---
Assessment/Plan Assessment/Plan Hospital Course (Demo Recall) Assessment: NSTEMI - clinical presentation concerning for acute coronary syndrome; EKG with inferolateral ST depressions, troponin trending up to 0.6 Acute kidney injury - renal function improving Hyperthyroidism - management per primary team Hypertension Dyslipidemia Diabetes mellitus Recommendations: -continue heparin drip -continue aspirin 81mg daily -continue atorvastatin 80mg daily -add amlodipine 5mg daily -continue carvedilol 25mg BID -hold lisinopril, monitor renal function -echocardiogram showed normal LVEF 65%, mild LVH with grade 1 diastolic dysfunction -arrange for coronary angiography -holding metformin in preparation for coronary angiography Consultation Date/Type/Reason Admit Date/Time October 10, 2018 at 01:49 Initial Consult Date Type of Consult Cardiology Date/Time of Note DATE: 10/11/18 TIME: 10:59 24 HR Interval Summary Free Text/Dictation No further chest pain. On heparin drip. Detailed Summary Additional Comments 14 point review of systems without changes. Exam/Review of Systems Vital Signs Vitals Vital Signs Date Temp Pulse Resp B/P (MAP) Pulse Ox O2 O2 Flow FiO2 Time Delivery Rate 10/11/18 80 144/63 09:34 (90) 10/11/18 97.7 18 100 07:42 10/10/18 Room Air 04:00 10/10/18 2.0 03:56 Intake and Output 10/10/18 10/10/18 10/11/18 1515:00 23:00 07:00 IntakeIntake Total 1040 ml 800 ml OutputOutput Total 600 ml BalanceBalance 440 ml 800 ml Exam Exam Constitutional: alert, well developed Psych: no complaints, nl mood/affect Head: normocephalic, atraumatic Eyes: nl conjunctiva, nl lids ENMT: nl external ears & nose, nl nasal mucosa & septum Neck: supple, non-tender; No jvd Respiratory: clear to auscultation, normal air movement Cardiovascular: regular rate and rhythm Gastrointestinal: soft, non-tender Musculoskeletal: nl extremities to inspection Extremities: No cyanosis, No clubbing, No edema Neurological: nl mental status, nl speech Labs Result Diagram: 10/11/18 0316 10/11/18 0316 Results 24hrs Laboratory Tests Test 10/10/18 12:31 10/10/18 13:25 10/10/18 18:03 10/10/18 19:43 Activated 51.3 H 56.7 H Partial Thromboplast Time Creatine Kinase 56 Creatine Kinase 3.3 Index Creatinine Kinase MB 1.87 (Mass) Troponin I 0.627 *H Thyroid Stimulating 0.029 L Hormone (TSH) Free Thyroxine 2.67 H Thyroxine (T4) 13.6 H Total 1.97 H Triiodothyronine Bedside Glucose 251 H 244 H Test 10/10/18 20:55 10/11/18 00:36 10/11/18 03:16 10/11/18 05:21 Bedside Glucose 250 H 212 181 White Blood Count 9.0 Red Blood Count 3.72 L Hemoglobin 10.0 L Hematocrit 30.5 L Mean Corpuscular 82.0 Volume Mean Corpuscular 26.9 L Hemoglobin Mean Corpuscular 32.8 Hemoglobin Concent Red Cell 13.3 Distribution Width Platelet Count 349 Mean Platelet Volume 11.6 H Immature 0.300 Granulocytes % Neutrophils % 40.7 Lymphocytes % 47.9 Monocytes % 8.7 Eosinophils % 2.1 Basophils % 0.3 Nucleated Red Blood 0.0 Cells % Immature 0.030 Granulocytes # Neutrophils # 3.7 Lymphocytes # 4.3 H Monocytes # 0.8 Eosinophils # 0.2 Basophils # 0.0 Nucleated Red Blood 0.0 Cells # Activated 69.7 H Partial Thromboplast Time Sodium Level 138 Potassium Level 3.5 Chloride Level 97 Carbon Dioxide Level 27 Anion Gap 14 H Blood Urea Nitrogen 20 Creatinine 1.04 H Est Glomerular 57 L Filtrat Rate mL/min Glucose Level 196 # Calcium Level 9.6 Total Bilirubin 0.8 Direct Bilirubin 0.00 Indirect Bilirubin 0.8 Aspartate Amino 18 Transf (AST/SGOT) Alanine 26 Aminotransferase (AL T/SGPT) Alkaline Phosphatase 113 Total Protein 7.5 Albumin 3.9 Globulin 3.60 H Albumin/Globulin 1.08 Ratio Test 10/11/18 07:27 10/11/18 09:47 Bedside Glucose 122 Activated 75.1 *H Partial Thromboplast Time Medications Medications Current Medications Miscellaneous Information 1 ea NOTE XX ; Start 10/10/18 at 02:36 Glucose (Glutose) 15 gm Q15M PRN PO DECREASED GLUCOSE; Start 10/10/18 at 02:36 Glucose (Glutose) 22.5 gm Q15M PRN PO DECREASED GLUCOSE; Start 10/10/18 at 02:36 Dextrose (D50w Syringe) 25 ml Q15M PRN IV DECREASED GLUCOSE; Start 10/10/18 at 02:36 Dextrose (D50w Syringe) 50 ml Q15M PRN IV DECREASED GLUCOSE; Start 10/10/18 at 02:36 Glucagon (Glucagen) 1 mg Q15M PRN IM DECREASED GLUCOSE; Start 10/10/18 at 02:36 Glucose (Glutose) 15 gm Q15M PRN BUCCAL DECREASED GLUCOSE; Start 10/10/18 at 02:36 IV Flush (NS 3 ml) 3 ml PER PROTOCOL IV ; Start 10/10/18 at 03:30 Ondansetron HCl (Zofran Inj) 4 mg Q6H PRN IV NAUSEA/VOMITING; Start 10/10/18 at 03:30 Aspirin (Aspirin) 81 mg DAILY PO Last administered on 10/11/18 08:25; Admin Dose 81 MG; Start 10/10/18 at 09:00 Nitroglycerin (Nitroglycerin (Sl Tab) 0.4 Mg) 1 tab Q5M PRN SL .CHEST PAIN; Start 10/10/18 at 03:30 Acetaminophen (Tylenol Tab) 650 mg Q6H PRN PO .PAIN 1-3 OR TEMP; Start 10/10/18 at 03:30 Morphine Sulfate (morphine) 2 mg Q4H PRN IV .PAIN 7-10; Start 10/10/18 at 03:30 Heparin Sodium (Porcine) (Heparin (1000 Units/ml)) 4,000 unit PER PROTOCOL PRN IV aPTT<47; Start 10/10/18 at 09:30 Heparin Sodium (Porcine) 250 ml @ 10 mls/hr PER PROTOCOL IV Last administered on 10/11/18at 01:29; Admin Dose 13 MLS/HR; Start 10/10/18 at 03:30 Atorvastatin Calcium (Lipitor) 80 mg HS PO Last administered on 10/10/18at 20:50; Admin Dose 80 MG; Start 10/10/18 at 21:00 Pantoprazole (Protonix Tab) 40 mg BID PO Last administered on 10/11/18 08:25; Admin Dose 40 MG; Start 10/10/18 at 21:00 Sucralfate (Carafate) 1 gm QID PO Last administered on 10/11/18at 08:25; Admin Dose 1 GM; Start 10/10/18 at 11:00 Hydralazine HCl (Apresoline) 10 mg Q4H PRN IV SBP >160; Start 10/10/18 at 11:30 Insulin Glargine (Lantus) 32 units QHS SC Last administered on 10/10/18at 21:06; Admin Dose 32 UNITS; Start 10/10/18 at 21:00 Carvedilol (Coreg) 25 mg BID PO Last administered on 10/11/18at 08:26; Admin Dose 25 MG; Start 10/10/18 at 21:00 Insulin Aspart (Novolog Insulin Pen) (Adult SC Insulin - Mild Algorithm)... WITH MEALS BEDTIME SC ; Start 10/11/18 at 07:55 JOCELINE DAVEY MD October 11, 2018 11:01
[2018-10-11] MEDS: AMLODIPINE 5 MG TAB PO SCH (11:57)
--- NOTE | 2018-10-11 11:57 | RADRPT ---
Vent Rate: 97 bpm RR Interval: 0 msec MD Interval: 180 msec QRS Duration: 82 msec QT Interval: 350 msec QTC Interval: 444 msec P-R-T [place]: 62 - 28 - 139 degrees Normal sinus rhythm Possible Left atrial enlargement Nonspecific ST and T wave abnormality Abnormal ECG Electronically Signed By: *[facility]
[2018-10-11] MEDS ORDERED: METHIMAZOLE 5 MG TAB PO ONE (12:30)
[2018-10-11] MEDS: ATORVASTATIN 80 MG TAB PO SCH (21:10)
[2018-10-11] MEDS: INSULIN GLARGINE [LANTus] (100 UNITS/ML) SYG SC SCH (21:22)
[2018-10-11] MEDS ORDERED: ACCU-CHEK XX ONE (22:00)
[2018-10-11] MEDS ORDERED: INSULIN ASPART [NOVOLOG] 3 ML PEN SC ONE (22:00)
[2018-10-12] VITALS (18 sets, daily range): BP systolic 118–167; BP diastolic 66–89; PULSE 78–112; RESP 14–36
--- NOTE | 2018-10-12 07:53 | CONS ---
Assessment/Plan Assessment/Plan Hospital Course (Demo Recall) NSTEMI - clinical presentation concerning for acute coronary syndrome; EKG with inferolateral ST depressions, troponin up to 0.6. Ef preserved. Plan for cardiac cath today Acute kidney injury - mild, stable Hyperthyroidism - now on methimazole Hypertension Dyslipidemia Diabetes mellitus -cath this am -d/c heparin drip -continue aspirin 81mg daily -continue atorvastatin 80mg daily -amlodipine 5mg daily -continue carvedilol 25mg BID -hold lisinopril, restart if renal function stable post cath Consultation Date/Type/Reason Admit Date/Time October 10, 2018 at 01:49 Initial Consult Date Type of Consult Cardiology Date/Time of Note DATE: 10/12/18 TIME: 07:51 24 HR Interval Summary Free Text/Dictation No events. No chest pain. Explained cardiac cath to pt and she understands and is willing to proceed Exam/Review of Systems Vital Signs Vitals Vital Signs Date Temp Pulse Resp B/P (MAP) Pulse Ox O2 O2 Flow FiO2 Time Delivery Rate 10/12/18 98.4 90 18 167/79 97 07:30 (108) 10/10/18 Room Air 04:00 10/10/18 2.0 03:56 Intake and Output 10/11/18 10/11/18 10/12/18 1515:00 23:00 07:00 IntakeIntake Total 1310 ml 850 ml OutputOutput Total 3 ml 3 ml BalanceBalance 1307 ml 847 ml Exam Constitutional: alert, oriented Psych: no complaints, nl mood/affect Head: normocephalic Eyes: nl conjunctiva Neck: supple; No jvd Respiratory: clear to auscultation; No crackles/rales, No diminished breath sounds Cardiovascular: regular rate and rhythm; No edema, No systolic murmur Gastrointestinal: soft, non-tender; No distended Neurological: nl mental status, nl speech Labs Result Diagram: 10/12/18 0532 10/12/18 0532 Results 24hrs Laboratory Tests Test 10/11/18 09:47 10/11/18 11:56 10/11/18 16:46 10/11/18 17:26 Activated 75.1 *H 54.0 H Partial Thromboplast Time Bedside Glucose 206 287 H Test 10/11/18 21:08 10/12/18 01:45 10/12/18 01:56 10/12/18 05:32 Bedside Glucose 320 H 257 H Activated 61.1 H Partial Thromboplast Time White Blood Count 9.4 Red Blood Count 3.97 L Hemoglobin 10.6 L Hematocrit 32.3 L Mean Corpuscular 81.4 L Volume Mean Corpuscular 26.7 L Hemoglobin Mean Corpuscular 32.8 Hemoglobin Concent Red Cell 13.2 Distribution Width Platelet Count 341 Mean Platelet Volume 11.5 H Immature 0.300 Granulocytes % Neutrophils % 50.7 Lymphocytes % 37.4 Monocytes % 9.7 Eosinophils % 1.7 Basophils % 0.2 Nucleated Red Blood 0.0 Cells % Immature 0.030 Granulocytes # Neutrophils # 4.7 Lymphocytes # 3.5 H Monocytes # 0.9 Eosinophils # 0.2 Basophils # 0.0 Nucleated Red Blood 0.0 Cells # Sodium Level 136 Potassium Level 3.4 L Chloride Level 98 Carbon Dioxide Level 27 Anion Gap 11 Blood Urea Nitrogen 25 H Creatinine 1.08 H Est Glomerular 54 L Filtrat Rate mL/min Glucose Level 282 H Calcium Level 9.7 Total Bilirubin 0.8 Direct Bilirubin 0.00 Indirect Bilirubin 0.8 Aspartate Amino 15 Transf (AST/SGOT) Alanine 27 Aminotransferase (AL T/SGPT) Alkaline Phosphatase 128 H Total Protein 7.5 Albumin 3.9 Globulin 3.60 H Albumin/Globulin 1.08 Ratio Medications Medications Current Medications Miscellaneous Information 1 ea NOTE XX ; Start 10/10/18 at 02:36 Glucose (Glutose) 15 gm Q15M PRN PO DECREASED GLUCOSE; Start 10/10/18 at 02:36 Glucose (Glutose) 22.5 gm Q15M PRN PO DECREASED GLUCOSE; Start 10/10/18 at 02:36 Dextrose (D50w Syringe) 25 ml Q15M PRN IV DECREASED GLUCOSE; Start 10/10/18 at 02:36 Dextrose (D50w Syringe) 50 ml Q15M PRN IV DECREASED GLUCOSE; Start 10/10/18 at 02:36 Glucagon (Glucagen) 1 mg Q15M PRN IM DECREASED GLUCOSE; Start 10/10/18 at 02:36 Glucose (Glutose) 15 gm Q15M PRN BUCCAL DECREASED GLUCOSE; Start 10/10/18 at 02:36 IV Flush (NS 3 ml) 3 ml PER PROTOCOL IV ; Start 10/10/18 at 03:30 Ondansetron HCl (Zofran Inj) 4 mg Q6H PRN IV NAUSEA/VOMITING; Start 10/10/18 at 03:30 Aspirin (Aspirin) 81 mg DAILY PO Last administered on 10/11/18 08:25; Admin Dose 81 MG; Start 10/10/18 at 09:00 Nitroglycerin (Nitroglycerin (Sl Tab) 0.4 Mg) 1 tab Q5M PRN SL .CHEST PAIN; Start 10/10/18 at 03:30 Acetaminophen (Tylenol Tab) 650 mg Q6H PRN PO .PAIN 1-3 OR TEMP; Start 10/10/18 at 03:30 Morphine Sulfate (morphine) 2 mg Q4H PRN IV .PAIN 7-10; Start 10/10/18 at 03:30 Heparin Sodium (Porcine) (Heparin (1000 Units/ml)) 4,000 unit PER PROTOCOL PRN IV aPTT<47; Start 10/10/18 at 09:30 Heparin Sodium (Porcine) 250 ml @ 10 mls/hr PER PROTOCOL IV Last administered on 10/11/18 23:27; Admin Dose 12 MLS/HR; Start 10/10/18 at 03:30 Atorvastatin Calcium (Lipitor) 80 mg HS PO Last administered on 10/11/18 21:10; Admin Dose 80 MG; Start 10/10/18 at 21:00 Pantoprazole (Protonix Tab) 40 mg BID PO Last administered on 10/11/18 21:10; Admin Dose 40 MG; Start 10/10/18 at 21:00 Sucralfate (Carafate) 1 gm QID PO Last administered on 10/11/18 21:10; Admin Dose 1 GM; Start 10/10/18 at 11:00 Hydralazine HCl (Apresoline) 10 mg Q4H PRN IV SBP >160 Last administered on 16:42; Admin Dose 10 MG; Start 10/10/18 at 11:30 Insulin Glargine (Lantus) 32 units QHS SC Last administered on 10/11/18 21:22; Admin Dose 32 UNITS; Start 10/10/18 at 21:00 Carvedilol (Coreg) 25 mg BID PO Last administered on 10/11/18 21:11; Admin Dose 25 MG; Start 10/10/18 at 21:00 Amlodipine Besylate (Norvasc) 5 mg DAILY PO Last administered on 10/11/18at 11:57; Admin Dose 5 MG; Start 10/11/18 at 11:00 Insulin Aspart (Novolog Insulin Pen) NOVOLOG *MILD* ALGORITHM WITH MEALS BEDTIM E SC Last administered on 10/11/18at 21:22; Admin Dose 4 UNIT; Start 10/11/18 at 17:55 Methimazole (Tapazole) 5 mg DAILY PO ; Start 10/12/18 at 09:00 Potassium Chloride (Potassium Chloride Pwd/Soln) 40 meq ONCE ONCE PO ; Start 10/12/18 at 08:00; Stop 10/12/18 at 08:01 COURTNEY TRONCOSO October 12, 2018 07:53
[2018-10-12] MEDS ORDERED: POTASSIUM CHLORIDE 20 MEQ POWDER FOR ORAL SOLN PO ONE (08:00)
[2018-10-12] MEDS: AMLODIPINE 5 MG TAB PO SCH (08:08)
[2018-10-12] MEDS: ASPIRIN 81 MG TAB PO SCH (08:08)
[2018-10-12] MEDS: SUCRALFATE 1 GM TAB PO SCH ×4 (08:08→21:11)
[2018-10-12] MEDS: PANTOPRAZOLE (EC) 40 MG TAB PO SCH ×2 (08:09→21:09)
[2018-10-12] MEDS: INSULIN ASPART [NOVOLOG] 3 ML PEN SC SCH ×4 (08:14→21:17)
[2018-10-12] MEDS: METHIMAZOLE 5 MG TAB PO SCH (08:17)
--- NOTE | 2018-10-12 10:16 | PN ---
Date/Time of Note Date/Time of Note DATE: 10/12/18 TIME: 10:16 Assessment/Plan VTE Prophylaxis Risk score (from Ns)>0 risk: 1 SCD applied (from Ns): Yes Pharmacological prophylaxis: heparin Lines/Catheters IV [facility] Urinary Cath still in place: No Assessment/Plan Assessment/Plan 1. NSTEMI - remains free of chest pain - plans for angiogram this am per Cardiology - Cardiology consultation appreciated. - troponins trend noted - ECHO results noted with preserved EF 2. HTN - on coreg and norvasc. will adjust as needed for BP control 3. Diabetes Mellitus - A1c noted - Will continue on Lantus and hold metformin given angiogram - continue on glyburide - ISS and accuchecks 4. hyperthyroidism - continue on Methimazole and discussed need to follow up with PCP as outpatient 5. GERD - continue PPI 6. Disposition - Plans for cardiac cath today and discharge planning based on results Result Diagram: 10/12/18 0532 10/12/18 0532 Results 24hrs Laboratory Tests Test 10/11/18 11:56 10/11/18 16:46 10/11/18 17:26 10/11/18 21:08 Bedside Glucose 206 287 H 320 H Activated 54.0 H Partial Thromboplast Time Test 10/12/18 01:45 10/12/18 01:56 10/12/18 05:32 10/12/18 08:06 Activated 61.1 H Partial Thromboplast Time Bedside Glucose 257 H 286 H White Blood Count 9.4 Red Blood Count 3.97 L Hemoglobin 10.6 L Hematocrit 32.3 L Mean Corpuscular 81.4 L Volume Mean Corpuscular 26.7 L Hemoglobin Mean Corpuscular 32.8 Hemoglobin Concent Red Cell 13.2 Distribution Width Platelet Count 341 Mean Platelet Volume 11.5 H Immature 0.300 Granulocytes % Neutrophils % 50.7 Lymphocytes % 37.4 Monocytes % 9.7 Eosinophils % 1.7 Basophils % 0.2 Nucleated Red Blood 0.0 Cells % Immature 0.030 Granulocytes # Neutrophils # 4.7 Lymphocytes # 3.5 H Monocytes # 0.9 Eosinophils # 0.2 Basophils # 0.0 Nucleated Red Blood 0.0 Cells # Sodium Level 136 Potassium Level 3.4 L Chloride Level 98 Carbon Dioxide Level 27 Anion Gap 11 Blood Urea Nitrogen 25 H Creatinine 1.08 H Est Glomerular 54 L Filtrat Rate mL/min Glucose Level 282 H Calcium Level 9.7 Total Bilirubin 0.8 Direct Bilirubin 0.00 Indirect Bilirubin 0.8 Aspartate Amino 15 Transf (AST/SGOT) Alanine 27 Aminotransferase (AL T/SGPT) Alkaline Phosphatase 128 H Total Protein 7.5 Albumin 3.9 Globulin 3.60 H Albumin/Globulin 1.08 Ratio Subjective 24 Hr Interval Summary Free Text/Dictation Patient denies any acute issues but does admit to being scared about angiogram today. Exam/Review of Systems Exam Vitals Vital Signs Date Temp Pulse Resp B/P (MAP) Pulse Ox O2 O2 Flow FiO2 Time Delivery Rate 10/12/18 97 08:09 10/12/18 98.4 18 167/79 97 07:30 (108) 10/10/18 Room Air 04:00 10/10/18 2.0 03:56 Intake and Output 10/11/18 10/11/18 10/12/18 1515:00 23:00 07:00 IntakeIntake Total 1310 ml 850 ml OutputOutput Total 3 ml 3 ml BalanceBalance 1307 ml 847 ml Exam General: Pleasant female currently lying in bed in no acute distress Neck: Supple Chest: Nontender to palpation Lungs: Clear to auscultation bilaterally no crackles rales or wheezing Heart: Normal S1-S2, Regular rhythm and rate. No murmur, S3, or S4 Abdomen: Obese, soft , nontender, mildly distended, bowel sounds are present. N o guarding no rebound tenderness Ext: no cyanosis, clubbing or edema Results Results 24hrs Laboratory Tests Test 10/11/18 11:56 10/11/18 16:46 10/11/18 17:26 10/11/18 21:08 Bedside Glucose 206 287 H 320 H Activated 54.0 H Partial Thromboplast Time Test 10/12/18 01:45 10/12/18 01:56 10/12/18 05:32 10/12/18 08:06 Activated 61.1 H Partial Thromboplast Time Bedside Glucose 257 H 286 H White Blood Count 9.4 Red Blood Count 3.97 L Hemoglobin 10.6 L Hematocrit 32.3 L Mean Corpuscular 81.4 L Volume Mean Corpuscular 26.7 L Hemoglobin Mean Corpuscular 32.8 Hemoglobin Concent Red Cell 13.2 Distribution Width Platelet Count 341 Mean Platelet Volume 11.5 H Immature 0.300 Granulocytes % Neutrophils % 50.7 Lymphocytes % 37.4 Monocytes % 9.7 Eosinophils % 1.7 Basophils % 0.2 Nucleated Red Blood 0.0 Cells % Immature 0.030 Granulocytes # Neutrophils # 4.7 Lymphocytes # 3.5 H Monocytes # 0.9 Eosinophils # 0.2 Basophils # 0.0 Nucleated Red Blood 0.0 Cells # Sodium Level 136 Potassium Level 3.4 L Chloride Level 98 Carbon Dioxide Level 27 Anion Gap 11 Blood Urea Nitrogen 25 H Creatinine 1.08 H Est Glomerular 54 L Filtrat Rate mL/min Glucose Level 282 H Calcium Level 9.7 Total Bilirubin 0.8 Direct Bilirubin 0.00 Indirect Bilirubin 0.8 Aspartate Amino 15 Transf (AST/SGOT) Alanine 27 Aminotransferase (AL T/SGPT) Alkaline Phosphatase 128 H Total Protein 7.5 Albumin 3.9 Globulin 3.60 H Albumin/Globulin 1.08 Ratio Medications Medication Current Medications Miscellaneous Information 1 ea NOTE XX ; Start 10/10/18 at 02:36 Glucose (Glutose) 15 gm Q15M PRN PO DECREASED GLUCOSE; Start 10/10/18 at 02:36 Glucose (Glutose) 22.5 gm Q15M PRN PO DECREASED GLUCOSE; Start 10/10/18 at 02:36 Dextrose (D50w Syringe) 25 ml Q15M PRN IV DECREASED GLUCOSE; Start 10/10/18 at 02:36 Dextrose (D50w Syringe) 50 ml Q15M PRN IV DECREASED GLUCOSE; Start 10/10/18 at 02:36 Glucagon (Glucagen) 1 mg Q15M PRN IM DECREASED GLUCOSE; Start 10/10/18 at 02:36 Glucose (Glutose) 15 gm Q15M PRN BUCCAL DECREASED GLUCOSE; Start 10/10/18 at 02:36 IV Flush (NS 3 ml) 3 ml PER PROTOCOL IV ; Start 10/10/18 at 03:30 Ondansetron HCl (Zofran Inj) 4 mg Q6H PRN IV NAUSEA/VOMITING; Start 10/10/18 at 03:30 Aspirin (Aspirin) 81 mg DAILY PO Last administered on 10/12/18at 08:08; Admin Dose 81 MG; Start 10/10/18 at 09:00 Nitroglycerin (Nitroglycerin (Sl Tab) 0.4 Mg) 1 tab Q5M PRN SL .CHEST PAIN; Start 10/10/18 at 03:30 Acetaminophen (Tylenol Tab) 650 mg Q6H PRN PO .PAIN 1-3 OR TEMP; Start 10/10/18 at 03:30 Morphine Sulfate (morphine) 2 mg Q4H PRN IV .PAIN 7-10; Start 10/10/18 at 03:30 Atorvastatin Calcium (Lipitor) 80 mg HS PO Last administered on 10/11/18 21:10; Admin Dose 80 MG; Start 10/10/18 at 21:00 Pantoprazole (Protonix Tab) 40 mg BID PO Last administered on 10/12/18 08:09; Admin Dose 40 MG; Start 10/10/18 at 21:00 Sucralfate (Carafate) 1 gm QID PO Last administered on 10/12/18 08:08; Admin Dose 1 GM; Start 10/10/18 at 11:00 Hydralazine HCl (Apresoline) 10 mg Q4H PRN IV SBP >160 Last administered on 10/11/18 16:42; Admin Dose 10 MG; Start 10/10/18 at 11:30 Insulin Glargine (Lantus) 32 units QHS SC Last administered on 10/11/18 21:22; Admin Dose 32 UNITS; Start 10/10/18 at 21:00 Carvedilol (Coreg) 25 mg BID PO Last administered on 10/12/18 08:09; Admin Dose 25 MG; Start 10/10/18 at 21:00 Amlodipine Besylate (Norvasc) 5 mg DAILY PO Last administered on 10/12/18 08:08; Admin Dose 5 MG; Start 10/11/18 at 11:00 Insulin Aspart (Novolog Insulin Pen) NOVOLOG *MILD* ALGORITHM WITH MEALS BEDTIME SC Last administered on 10/12/18 08:14; Admin Dose 4 UNIT; Start 10/11/18 at 17:55 Methimazole (Tapazole) 5 mg DAILY PO Last administered on 10/12/18 08:17; Admin Dose 5 MG; Start 10/12/18 at 09:00 JARON ROQUE MD October 12, 2018 10:16
[2018-10-12] MEDS ORDERED: BIVALIRUDIN 250 MG/50 ML NS BAG IVPB ONE (10:30)
[2018-10-12] MEDS ORDERED: FENTAnyl 50 MCG/ML VIAL ONE (10:35)
[2018-10-12] MEDS ORDERED: LIDOCAINE 1% (MDV) 20 ML INJ ONE (10:35)
[2018-10-12] MEDS ORDERED: NITROGLYCERIN (IC) 100 MCG/ML INJ ONE (10:35)
[2018-10-12] MEDS ORDERED: HEPARIN 1000 UNITS/ML 10 ML INJ ONE (10:35)
[2018-10-12] MEDS ORDERED: VERAPAMIL 5 MG INJ ONE (10:35)
[2018-10-12] MEDS ORDERED: IODIXANOL LOCM 100 ML BTL ONE ×2 (10:35→12:21)
[2018-10-12] MEDS ORDERED: MIDAZOLAM 1 MG/ML 2 ML INJ ONE (10:35)
[2018-10-12] MEDS ORDERED: DIPHENHYDRAMINE 50 MG INJ ONE (11:00)
[2018-10-12] MEDS ORDERED: ASPIRIN 325 MG TAB ONE (11:19)
[2018-10-12] MEDS ORDERED: TICAGRELOR 90 MG TABLET ONE (11:19)
[2018-10-12] MEDS ORDERED: SOD CHLORIDE 0.9% 1,000 ML IV SCH (12:47)
--- NOTE | 2018-10-12 12:59 | OPR ---
Date/Time of Note Date/Time of Note DATE: 10/12/18 TIME: 12:48 Operative Report Procedure Date: October 12, 2018 Preoperative Diagnosis NSTEMI Postoperative Diagnosis NSTEMI Operation/Procedure Performed see details Surgeon see signature line Equities Trader none Anesthesia Type: moderate sedation Estimated Blood Loss: minimal Transfusion none Specimen none Grafts/Implants none Complications none Procedure Description Procedure Date:10/12/2018 [employer] Supervisor/surgeon: Courtney Moreno MD. Procedures Performed: 1)Left heart catheterization with selective left and right coronary angiography. 2)Balloon angioplasty of the prox Ramus. Lesion was not stented as it was not dilateable Pre-operative Diagnosis:NSTEMI Post-operative Diagnosis: same Indications:48 yo F with DM, presenting with chest pain and found to have an NST CORRIE (trop 0.6) Description of Procedure: After informed consent, the patient was brought to the cardiac catheterization lab. The procedure site was prepped and draped in usual manner. The patient was premedicated with versed 2 mg and fentanyl 50 mcg. 3 mL lidocaine was injected into the left wrist. Next using the posterior wall technique and under ultrasound guidance, the 6/5 kosovan sheath was inserted into the left radial artery. Next using the JL3.5 and JR4, selective angiography of the left and right coronary arteries were obtained. The decision was made to proceed with PCI of the Ramus. A JL 3.0 guide was advanced and engaged into the left Cx coronary artery. After appropriate anticoagulation and antiplatelets were given, the BMW angioplasty wire was advanced past the lesion. Next the 2.0 X 12 balloon was used to dilate the lesion times 3 at a maximum of 8 ean. The balloon slipped and a new one was advanced to the lesion and again dilated up to 12 ean but the lesion was not fully dilated. The 2.25 NC was attempted to be advanced but again was not successful. A Mailman was advanced as a felisha wire and again the lesion could not be crossed with the NC balloon. The pt was asymptomatic and with TONIA 3 flow so the decision was made to bring her back for a rotablator Next all equipment was removed and hemostasis was achieved by TR band Findings: Anatomy/Hemodynamics: Separate ostia of the LAD and Cx LAD: mid-distal 40% Diagonal: luminal irregularities Circumflex: dominant vessel, luminal irregularities Obtuse marginal 1 vs Ramus: prox long calcified or fibrotic 95% Obtuse marginal 2: bifurcating vessel with 95% at bifurcation Cx PDA: luminal irregularities RCA:non dominant with prox 40% AV was not crossed Contrast used:120 mL Fluoroscopy time: 17.4 min Medications used: Versed 2 Fentanyl 50 Radial cocktail: heparin 2000 units, NTG 200mcg, verapamil 2.5mg Angiomax Brilinta 180mg Equipment used: 6 kosovan JL 3.0 guide BMW angioplasty wire and Mailman 2 x 12 balloon 2.25 x 8 NC (could not cross) Estimated blood loss<10 mL. Specimen: none Grafts/implants: none Complications: none Assessment: NSTEMI/CAD: s/p cath with disease of Ramus and OM. Ramus intervened upon but could not be adequately dilated. Pt will be treated medically for now and brou ght back for rotablator likely as outpt in 2 weeks Plan: -continue ASA and Brilinta -if no further symptoms, possibly d/c and plan for outpt Rotablator COURTNEY MORENO October 12, 2018 12:59
[2018-10-12] MEDS: ISOSORBIDE MONONITRATE(SR)60 MG TAB PO SCH (13:00)
[2018-10-12] MEDS: glyBURIDE 5 MG TAB PO SCH (21:12)
[2018-10-12] MEDS: ATORVASTATIN 80 MG TAB PO SCH (21:12)
[2018-10-12] MEDS: TICAGRELOR 90 MG TABLET PO SCH (21:14)
[2018-10-12] MEDS: INSULIN GLARGINE [LANTus] (100 UNITS/ML) SYG SC SCH (21:15)
[2018-10-13] VITALS (24 sets, daily range): BP systolic 103–166; BP diastolic 53–90; PULSE 77–105; RESP 12–30
[2018-10-13] MEDS: INSULIN ASPART [NOVOLOG] 3 ML PEN SC SCH ×4 (07:35→21:00)
--- NOTE | 2018-10-13 07:49 | CONS ---
Assessment/Plan Assessment/Plan Hospital Course (Demo Recall) NSTEMI - s/p cath with disease of Ramus and bifurcating OM. Ramus was ballooned but did not expand so will need a rotablator in about 2 weeks. In the meantime will plan for intervention of the bifurcating OM Acute kidney injury - resolved Hyperthyroidism - now on methimazole Hypertension Dyslipidemia Diabetes mellitus -planned PCI of OM this afternoon -keep NPO -ticagrelor 90mg BID -imdur 60mg -continue aspirin 81mg daily -continue atorvastatin 80mg daily -amlodipine 5mg daily -continue carvedilol 25mg BID -hold lisinopril, restart if renal function stable post PCI Consultation Date/Type/Reason Admit Date/Time October 10, 2018 at 01:49 Initial Consult Date Type of Consult Cardiology Date/Time of Note DATE: 10/13/18 TIME: 07:47 24 HR Interval Summary Free Text/Dictation s/p cath with anatomy as detailed. No chest pain. Doing well. Cr normalized. Exam/Review of Systems Vital Signs Vitals Vital Signs Date Temp Pulse Resp B/P (MAP) Pulse Ox O2 O2 Flow FiO2 Time Delivery Rate 10/13/18 88 18 140/71 98 Room Air 05:00 (94) 10/13/18 98.1 04:00 10/10/18 2.0 03:56 Intake and Output 10/12/18 10/12/18 10/13/18 1515:00 23:00 07:00 IntakeIntake Total 850 ml 570 ml OutputOutput Total 600 ml 600 ml BalanceBalance 250 ml -30 ml Exam Constitutional: alert, oriented Psych: no complaints, nl mood/affect Head: normocephalic, atraumatic Neck: supple; No jvd Respiratory: clear to auscultation; No crackles/rales, No diminished breath sounds Cardiovascular: regular rate and rhythm; No edema, No systolic murmur Gastrointestinal: soft, non-tender Neurological: nl mental status, nl speech Labs Result Diagram: 10/13/18 0501 10/13/18 0501 Results 24hrs Laboratory Tests Test 10/12/18 08:06 10/12/18 13:45 10/12/18 21:09 10/13/18 05:01 Bedside Glucose 286 H 234 H 191 White Blood Count 7.9 Red Blood Count 3.72 L Hemoglobin 9.8 L Hematocrit 30.5 L Mean Corpuscular 82.0 Volume Mean Corpuscular 26.3 L Hemoglobin Mean Corpuscular 32.1 Hemoglobin Concent Red Cell 13.4 Distribution Width Platelet Count 347 Mean Platelet Volume 11.5 H Immature 0.300 Granulocytes % Neutrophils % 57.5 Lymphocytes % 28.8 Monocytes % 11.3 H Eosinophils % 1.8 Basophils % 0.3 Nucleated Red Blood 0.0 Cells % Immature 0.020 Granulocytes # Neutrophils # 4.5 Lymphocytes # 2.3 Monocytes # 0.9 Eosinophils # 0.1 Basophils # 0.0 Nucleated Red Blood 0.0 Cells # Sodium Level 142 Potassium Level 3.7 Chloride Level 108 # Carbon Dioxide Level 26 Anion Gap 8 Blood Urea Nitrogen 19 Creatinine 0.96 Est Glomerular > 60 Filtrat Rate mL/min Glucose Level 155 # Calcium Level 9.2 Magnesium Level 2.0 Total Bilirubin 0.8 Direct Bilirubin 0.00 Indirect Bilirubin 0.8 Aspartate Amino 15 Transf (AST/SGOT) Alanine 24 Aminotransferase (AL T/SGPT) Alkaline Phosphatase 108 Total Protein 7.0 Albumin 3.6 Globulin 3.40 H Albumin/Globulin 1.05 Ratio Medications Medications Current Medications Miscellaneous Information 1 ea NOTE XX ; Start 10/10/18 at 02:36 Glucose (Glutose) 15 gm Q15M PRN PO DECREASED GLUCOSE; Start 10/10/18 at 02:36 Glucose (Glutose) 22.5 gm Q15M PRN PO DECREASED GLUCOSE; Start 10/10/18 at 02:36 Dextrose (D50w Syringe) 25 ml Q15M PRN IV DECREASED GLUCOSE; Start 10/10/18 at 02:36 Dextrose (D50w Syringe) 50 ml Q15M PRN IV DECREASED GLUCOSE; Start 10/10/18 at 02:36 Glucagon (Glucagen) 1 mg Q15M PRN IM DECREASED GLUCOSE; Start 10/10/18 at 02:36 Glucose (Glutose) 15 gm Q15M PRN BUCCAL DECREASED GLUCOSE; Start 10/10/18 at 02:36 IV Flush (NS 3 ml) 3 ml PER PROTOCOL IV ; Start 10/10/18 at 03:30 Ondansetron HCl (Zofran Inj) 4 mg Q6H PRN IV NAUSEA/VOMITING; Start 10/10/18 at 03:30 Aspirin (Aspirin) 81 mg DAILY PO Last administered on 10/12/18 08:08; Admin Dose 81 MG; Start 10/10/18 at 09:00 Nitroglycerin (Nitroglycerin (Sl Tab) 0.4 Mg) 1 tab Q5M PRN SL .CHEST PAIN; Start 10/10/18 at 03:30 Acetaminophen (Tylenol Tab) 650 mg Q6H PRN PO .PAIN 1-3 OR TEMP; Start 10/10/18 at 03:30 Morphine Sulfate (morphine) 2 mg Q4H PRN IV .PAIN 7-10; Start 10/10/18 at 03:30 Atorvastatin Calcium (Lipitor) 80 mg HS PO Last administered on 10/12/18 2 1:12; Admin Dose 80 MG; Start 10/10/18 at 21:00 Pantoprazole (Protonix Tab) 40 mg BID PO Last administered on 10/12/18 21:09; Admin Dose 40 MG; Start 10/10/18 at 21:00 Sucralfate (Carafate) 1 gm QID PO Last administered on 10/12/18 21:11; Admin Dose 1 GM; Start 10/10/18 at 11:00 Hydralazine HCl (Apresoline) 10 mg Q4H PRN IV SBP >160 Last administered on 10/11/18 16:42; Admin Dose 10 MG; Start 10/10/18 at 11:30 Insulin Glargine (Lantus) 32 units QHS SC Last administered on 10/12/18 21:15; Admin Dose 32 UNITS; Start 10/10/18 at 21:00 Carvedilol (Coreg) 25 mg BID PO Last administered on 10/12/18 21:11; Admin Dose 25 MG; Start 10/10/18 at 21:00 Insulin Aspart (Novolog Insulin Pen) NOVOLOG *MILD* ALGORITHM WITH MEALS BEDTIME SC Last administered on 10/12/18 21:17; Admin Dose 1 UNIT; Start 10/11/18 at 17:55 Methimazole (Tapazole) 5 mg DAILY PO Last administered on 10/12/18 08:17; Admin Dose 5 MG; Start 10/12/18 at 09:00 Amlodipine Besylate (Norvasc) 10 mg DAILY PO ; Start 10/13/18 at 09:00 Glyburide (Micronase) 5 mg BID PO Last administered on 10/12/18at 21:12; Admin Dose 5 MG; Start 10/12/18 at 21:00 Ticagrelor (Brilinta) 90 mg BID PO Last administered on 10/12/18at 21:14; Admin Dose 90 MG; Start 10/12/18 at 21:00 Isosorbide Mononitrate (Imdur) 60 mg DAILY PO ; Start 10/12/18 at 13:00 COURTNEY TRONCOSO October 13, 2018 07:49
[2018-10-13] MEDS: glyBURIDE 5 MG TAB PO SCH ×2 (08:48→21:08)
[2018-10-13] MEDS: PANTOPRAZOLE (EC) 40 MG TAB PO SCH ×2 (08:49→21:08)
[2018-10-13] MEDS: AMLODIPINE 10 MG TAB PO SCH (08:49)
[2018-10-13] MEDS: SUCRALFATE 1 GM TAB PO SCH ×4 (08:50→21:08)
[2018-10-13] MEDS: ISOSORBIDE MONONITRATE(SR)60 MG TAB PO SCH (08:50)
[2018-10-13] MEDS: TICAGRELOR 90 MG TABLET PO SCH ×2 (08:50→21:07)
[2018-10-13] MEDS: METHIMAZOLE 5 MG TAB PO SCH (08:50)
[2018-10-13] MEDS: ASPIRIN 81 MG TAB PO SCH (08:50)
--- NOTE | 2018-10-13 09:46 | PN ---
Date/Time of Note Date/Time of Note DATE: 10/13/18 TIME: 09:46 Objective Vitals Vital Signs Date Temp Pulse Resp B/P (MAP) Pulse Ox O2 O2 Flow FiO2 Time Delivery Rate 10/13/18 97.9 84 30 163/83 99 Room Air 08:00 (109) 10/10/18 2.0 03:56 Intake and Output 10/12/18 10/12/18 10/13/18 1515:00 23:00 07:00 IntakeIntake Total 850 ml 570 ml OutputOutput Total 600 ml 600 ml BalanceBalance 250 ml -30 ml Results Result Diagram: 10/13/18 0501 10/13/18 0501 Medications Medications Current Medications Miscellaneous Information 1 ea NOTE XX ; Start 10/10/18 at 02:36 Glucose (Glutose) 15 gm Q15M PRN PO DECREASED GLUCOSE; Start 10/10/18 at 02:36 Glucose (Glutose) 22.5 gm Q15M PRN PO DECREASED GLUCOSE; Start 10/10/18 at 02:36 Dextrose (D50w Syringe) 25 ml Q15M PRN IV DECREASED GLUCOSE; Start 10/10/18 at 02:36 Dextrose (D50w Syringe) 50 ml Q15M PRN IV DECREASED GLUCOSE; Start 10/10/18 at 02:36 Glucagon (Glucagen) 1 mg Q15M PRN IM DECREASED GLUCOSE; Start 10/10/18 at 02:36 Glucose (Glutose) 15 gm Q15M PRN BUCCAL DECREASED GLUCOSE; Start 10/10/18 at 02:36 IV Flush (NS 3 ml) 3 ml PER PROTOCOL IV ; Start 10/10/18 at 03:30 Ondansetron HCl (Zofran Inj) 4 mg Q6H PRN IV NAUSEA/VOMITING; Start 10/10/18 at 03:30 Aspirin (Aspirin) 81 mg DAILY PO Last administered on 10/13/18at 08:50; Admin Dose 81 MG; Start 10/10/18 at 09:00 Nitroglycerin (Nitroglycerin (Sl Tab) 0.4 Mg) 1 tab Q5M PRN SL .CHEST PAIN; Start 10/10/18 at 03:30 Acetaminophen (Tylenol Tab) 650 mg Q6H PRN PO .PAIN 1-3 OR TEMP; Start 10/10/18 at 03:30 Morphine Sulfate (morphine) 2 mg Q4H PRN IV .PAIN 7-10; Start 10/10/18 at 03:30 Atorvastatin Calcium (Lipitor) 80 mg HS PO Last administered on 10/12/18 21:12; Admin Dose 80 MG; Start 10/10/18 at 21:00 Pantoprazole (Protonix Tab) 40 mg BID PO Last administered on 10/13/18 08:49; Admin Dose 40 MG; Start 10/10/18 at 21:00 Sucralfate (Carafate) 1 gm QID PO Last administered on 10/13/18 08:50; Admin Dose 1 GM; Start 10/10/18 at 11:00 Hydralazine HCl (Apresoline) 10 mg Q4H PRN IV SBP >160 Last administered on 10/11/18 16:42; Admin Dose 10 MG; Start 10/10/18 at 11:30 Insulin Glargine (Lantus) 32 units QHS SC Last administered on 10/12/18 21:15; Admin Dose 32 UNITS; Start 10/10/18 at 21:00 Carvedilol (Coreg) 25 mg BID PO Last administered on 10/13/18 08:49; Admin Dos e 25 MG; Start 10/10/18 at 21:00 Insulin Aspart (Novolog Insulin Pen) NOVOLOG *MILD* ALGORITHM WITH MEALS BEDTIME SC Last administered on 10/12/18 21:17; Admin Dose 1 UNIT; Start 10/11/18 at 17:55 Methimazole (Tapazole) 5 mg DAILY PO Last administered on 10/13/18 08:50; Admin Dose 5 MG; Start 10/12/18 at 09:00 Amlodipine Besylate (Norvasc) 10 mg DAILY PO Last administered on 10/13/18 08:49; Admin Dose 10 MG; Start 10/13/18 at 09:00 Glyburide (Micronase) 5 mg BID PO Last administered on 10/13/18 08:48; Admin Dose 5 MG; Start 10/12/18 at 21:00 Ticagrelor (Brilinta) 90 mg BID PO Last administered on 10/13/18 08:50; Admin Dose 90 MG; Start 10/12/18 at 21:00 Isosorbide Mononitrate (Imdur) 60 mg DAILY PO Last administered on 10/13/18at 08:50; Admin Dose 60 MG; Start 10/12/18 at 13:00 VTE Prophylaxis Risk score (from Nsg)>0 risk: 1 SCD applied (from Nsg): Yes Lines/Catheters IV Catheter Type: Pollock in Place: No Assessment/Plan Hospital Course Subjective No chest pain, patient feeling well Objective Physical exam General: Patient is laying in bed and answers questions appropriately Mentation: Patient is alert and oriented 4, Head: Normocephalic atraumatic Eyes: EOMI, pupils reactive to light Neck: Supple, nontender, midline Respiratory: Clear to auscultation bilaterally Cardiovascular: regular rate, no obvious murmurs Gastrointestinal: non-tender to palpation, bowel sounds heard. Neurological: Moves all extremities spontaneously Skin: No new skin lesions Assessment/Plan 1. NSTEMI - remains free of chest pain -Repeat cardiac cath today, cath was also done on October 12, 2018 - Cardiology consultation appreciated. - troponins trend noted - ECHO results noted with preserved EF 2. HTN - on coreg and norvasc. will adjust as needed for BP control 3. Diabetes Mellitus - A1c noted - Will continue on Lantus and hold metformin given angiogram - continue on glyburide - ISS and accuchecks 4. hyperthyroidism - continue on Methimazole and discussed need to follow up with PCP as outpatient 5. GERD - continue PPI 6. Disposition - repeat cath today -More than 40 minutes of critical care time has been spent on this encounter LYNSEY WILD October 13, 2018 09:46
[2018-10-13] MEDS ORDERED: LIDOCAINE 1% (MDV) 20 ML INJ ONE (13:20)
[2018-10-13] MEDS ORDERED: FENTAnyl 50 MCG/ML VIAL ONE (13:20)
[2018-10-13] MEDS ORDERED: MIDAZOLAM 1 MG/ML 2 ML INJ ONE (13:20)
[2018-10-13] MEDS ORDERED: NITROGLYCERIN (IC) 100 MCG/ML INJ ONE (13:47)
[2018-10-13] MEDS ORDERED: BIVALIRUDIN 250MG /NS 50 ML 50 ML IVPB ONE (14:40)
[2018-10-13] MEDS ORDERED: SOD CHLORIDE 0.9% 1,000 ML IV SCH (14:43)
--- NOTE | 2018-10-13 14:55 | OPR ---
Date/Time of Note Date/Time of Note DATE: 10/13/18 TIME: 14:46 Operative Report Procedure Date: October 13, 2018 Preoperative Diagnosis NSTEMI Postoperative Diagnosis NSTEMI Operation/Procedure Performed see details Surgeon see signature line School Photographer none Anesthesia Type: moderate sedation Estimated Blood Loss: none Transfusion none Specimen none Grafts/Implants none Complications none Procedure Description Procedure Date: Sheet Catcher/surgeon: Donato Moreno MD. Procedures Performed: 1)Balloon angioplasty and stenting of the OM1 with a Synergy 2.25 x 16 stent in the upper branch and POBA of the lower branch 2)Right femoral artery angiography Pre-operative Diagnosis:NSTEMI Post-operative Diagnosis:NSTEMI Indications: 48 yo F with a h/o DM, HL, who presented with chest/back pain and was found to have an NSTEMI with trop 0.6. She had diagnostic cath 10/12/18 with noted Ramus and OM lesions. The ramus lesion did not dilate and she will be brought back for rotablator. The decision was made to intervene on the OM lesions Description of Procedure: After informed consent, the patient was brought to the cardiac catheterization lab. The procedure site was prepped and draped in usual manner. The patient was premedicated with versed 1 mg and fentanyl 25 mcg. 5 mL lidocaine was injected into the right groin. Next using the Seldinger technique and via micropuncture, the 7 swedish sheath was inserted into the right femoral artery. A 7 swedish Voda 3.5 guide was advanced and engaged into the Cx coronary artery (separate ostia). After appropriate anticoagulation and antiplatelets were given, the PT 2 moderate support wire was advanced into the upper branch and one in the lower branch. Next the 2.0 X 12 balloon was used to dilate the upper branch x 4 followed by the lower branch x1. Next the upper branch was stented wi th a Synergy 2.25 x 16 stent at nominal pressure. The lower branch was jailed but with good flow. Next the stent was dilated with the 2.25 x 12 NC x 3. Final angiography revealed TONIA 3 flow, no edge dissection, and appropriate stent expansion and jailed lower branch with TONIA 3 flow. Next all equipment was removed and hemostasis was achieved by manual pressure as right femoral angiography revealed the sheath was right at the bifurcation. Findings: Anatomy/Hemodynamics: Separate ostia of the LAD and Cx LAD: mid-distal 40% Diagonal: luminal irregularities Circumflex: dominant vessel, luminal irregularities Obtuse marginal 1 vs Ramus: prox long calcified or fibrotic 70-80% improved from prior Obtuse marginal 2: bifurcating vessel with 95-99% at bifurcation involving both branches Cx PDA: luminal irregularities Contrast used:85 mL Fluoroscopy time:10.9 Medications used: Versed 1 Fentanyl 25 Angiomax Brilinta loaded yesterday and 90mg given this am Equipment used: 7 swedish Voda 3.5 guide Pt 2 moderate angioplasty wires 2 x 12 balloon Synergy 2.25 x 16 drug eluting stent 2.25 x 12 noncompliant balloon Estimated blood loss<10 mL. Specimen: none Grafts/implants: none Complications: none Assessment: NSTEMI/CAD: s/p successful PCI of bifurcation OM lesions Plan: -continue ASA lifelong -Brilinta 90mg BID -ramus to be staged with rotablator as outpt DONATO MORENO October 13, 2018 14:55
[2018-10-13] MEDS: INSULIN GLARGINE [LANTus] (100 UNITS/ML) SYG SC SCH (21:08)
[2018-10-13] MEDS: ATORVASTATIN 80 MG TAB PO SCH (21:09)
[2018-10-14] VITALS (15 sets, daily range): BP systolic 88–143; BP diastolic 29–89; PULSE 78–97; RESP 14–25
[2018-10-14] MEDS: INSULIN ASPART [NOVOLOG] 3 ML PEN SC SCH ×2 (07:35→12:12)
[2018-10-14] MEDS: ASPIRIN 81 MG TAB PO SCH (08:38)
[2018-10-14] MEDS: SUCRALFATE 1 GM TAB PO SCH (08:38)
[2018-10-14] MEDS: METHIMAZOLE 5 MG TAB PO SCH (08:39)
[2018-10-14] MEDS: AMLODIPINE 10 MG TAB PO SCH (08:39)
[2018-10-14] MEDS: PANTOPRAZOLE (EC) 40 MG TAB PO SCH (08:39)
[2018-10-14] MEDS: ISOSORBIDE MONONITRATE(SR)60 MG TAB PO SCH (08:39)
[2018-10-14] MEDS: glyBURIDE 5 MG TAB PO SCH (08:40)
[2018-10-14] MEDS: TICAGRELOR 90 MG TABLET PO SCH (08:43)
[2018-10-14] MEDS ORDERED: POTASSIUM CHLORIDE 20 MEQ POWDER FOR ORAL SOLN PO ONE (09:00)
[2018-10-14] MEDS ORDERED: METH-493 PO (09:46)
[2018-10-14] MEDS ORDERED: ATOR-2 PO (09:46)
[2018-10-14] MEDS ORDERED: ISOS60TA PO (09:46)
[2018-10-14] MEDS ORDERED: AMLO-147 PO (09:46)
[2018-10-14] MEDS ORDERED: CARV25TA79 PO (09:46)
[2018-10-14] MEDS ORDERED: ASPI-831 PO (09:46)
[2018-10-14] MEDS ORDERED: LISI10TA2 PO (09:56)
[2018-10-14] MEDS ORDERED: LISINOPRIL 5 MG TAB PO SCH (10:00)
--- NOTE | 2018-10-14 10:01 | CONS ---
Assessment/Plan Assessment/Plan Hospital Course (Demo Recall) NSTEMI - s/p cath with disease of Ramus and bifurcating OM. Ramus was ballooned but did not expand so will need a rotablator in about 2 weeks. s/p successful PCI of OM bifurcation 10/13/18 Acute kidney injury - resolved Hyperthyroidism - now on methimazole Hypertension Dyslipidemia Diabetes mellitus -ok for d/c -will arrange for outpt staged PCI of Ramus with rotablator -ticagrelor 90mg BID -imdur 60mg -d/c with lisinopril 10mg and stop amlodipine -continue aspirin 81mg daily -continue atorvastatin 80mg daily -continue carvedilol 25mg BID Consultation Date/Type/Reason Admit Date/Time October 10, 2018 at 01:49 Initial Consult Date Type of Consult Cardiology Date/Time of Note DATE: 10/14/18 TIME: 09:59 24 HR Interval Summary Free Text/Dictation No events. No chest pain. No bleeding. BP controlled. Exam/Review of Systems Vital Signs Vitals Vital Signs Date Temp Pulse Resp B/P (MAP) Pulse Ox O2 O2 Flow FiO2 Time Delivery Rate 10/14/18 94 08:00 10/14/18 20 109/44 98 Room Air 06:00 (65) 10/14/18 98.5 04:00 Intake and Output 10/13/18 10/13/18 10/14/18 1515:00 23:00 07:00 IntakeIntake Total 75 ml 840 ml 935 ml OutputOutput Total 1000 ml 300 ml 1000 ml BalanceBalance -925 ml 540 ml -65 ml Exam Constitutional: alert, oriented Psych: no complaints, nl mood/affect Head: normocephalic, atraumatic Neck: supple; No jvd Respiratory: clear to auscultation; No crackles/rales Cardiovascular: regular rate and rhythm; No edema Gastrointestinal: soft, non-tender Neurological: nl mental status, nl speech Labs Result Diagram: 10/14/18 0444 10/14/184 Results 24hrs Laboratory Tests Test 10/13/18 11:58 10/13/18 17:12 10/13/18 21:06 10/14/18 04:44 Bedside Glucose 120 88 133 White Blood Count 8.9 Red Blood Count 3.44 L Hemoglobin 9.2 L Hematocrit 28.7 L Mean Corpuscular 83.4 Volume Mean Corpuscular 26.7 L Hemoglobin Mean Corpuscular 32.1 Hemoglobin Concent Red Cell 13.6 Distribution Width Platelet Count 307 Mean Platelet Volume 11.6 H Immature 0.100 Granulocytes % Neutrophils % 57.3 Lymphocytes % 29.8 Monocytes % 9.4 Eosinophils % 3.3 Basophils % 0.1 Nucleated Red Blood 0.0 Cells % Immature 0.010 Granulocytes # Neutrophils # 5.1 Lymphocytes # 2.6 Monocytes # 0.8 Eosinophils # 0.3 Basophils # 0.0 Nucleated Red Blood 0.0 Cells # Sodium Level 142 Potassium Level 3.4 L Chloride Level 109 Carbon Dioxide Level 24 Anion Gap 9 Blood Urea Nitrogen 19 Creatinine 1.08 H Est Glomerular 54 L Filtrat Rate mL/min Glucose Level 65 #L Calcium Level 9.4 Phosphorus Level 5.0 H Magnesium Level 2.0 Test 10/14/18 06:44 10/14/18 07:09 10/14/18 07:54 Bedside Glucose 65 L 91 137 Medications Medications Current Medications Miscellaneous Information 1 ea NOTE XX ; Start 10/10/18 at 02:36 Glucose (Glutose) 15 gm Q15M PRN PO DECREASED GLUCOSE; Start 10/10/18 at 02:36 Glucose (Glutose) 22.5 gm Q15M PRN PO DECREASED GLUCOSE; Start 10/10/18 at 02:36 Dextrose (D50w Syringe) 25 ml Q15M PRN IV DECREASED GLUCOSE; Start 10/10/18 at 02:36 Dextrose (D50w Syringe) 50 ml Q15M PRN IV DECREASED GLUCOSE; Start 10/10/18 at 02:36 Glucagon (Glucagen) 1 mg Q15M PRN IM DECREASED GLUCOSE; Start 10/10/18 at 02:36 Glucose (Glutose) 15 gm Q15M PRN BUCCAL DECREASED GLUCOSE; Start 10/10/18 at 02:36 IV Flush (NS 3 ml) 3 ml PER PROTOCOL IV ; Start 10/10/18 at 03:30 Ondansetron HCl (Zofran Inj) 4 mg Q6H PRN IV NAUSEA/VOMITING; Start 10/10/18 at 03:30 Aspirin (Aspirin) 81 mg DAILY PO Last administered on 10/14/18at 08:38; Admin Dose 81 MG; Start 10/10/18 at 09:00 Nitroglycerin (Nitroglycerin (Sl Tab) 0.4 Mg) 1 tab Q5M PRN SL .CHEST PAIN; Start 10/10/18 at 03:30 Acetaminophen (Tylenol Tab) 650 mg Q6H PRN PO .PAIN 1-3 OR TEMP; Start 10/10/18 at 03:30 Morphine Sulfate (morphine) 2 mg Q4H PRN IV .PAIN 7-10; Start 10/10/18 at 03:30 Atorvastatin Calcium (Lipitor) 80 mg HS PO Last administered on 10/13/18 21:09; Admin Dose 80 MG; Start 10/10/18 at 21:00 Pantoprazole (Protonix Tab) 40 mg BID PO Last administered on 10/14/18 08:39; Admin Dose 40 MG; Start 10/10/18 at 21:00 Sucralfate (Carafate) 1 gm QID PO Last administered on 10/14/18 08:38; Admin Dose 1 GM; Start 10/10/18 at 11:00 Hydralazine HCl (Apresoline) 10 mg Q4H PRN IV SBP >160 Last administered on 10/11/18 16:42; Admin Dose 10 MG; Start 10/10/18 at 11:30 Insulin Glargine (Lantus) 32 units QHS SC Last administered on 10/13/18 21:08; Admin Dose 32 UNITS; Start 10/10/18 at 21:00 Carvedilol (Coreg) 25 mg BID PO Last administered on 10/14/18 08:38; Admin Dose 25 MG; Start 10/10/18 at 21:00 Insulin Aspart (Novolog Insulin Pen) NOVOLOG *MILD* ALGORITHM WITH MEALS BEDTIME SC Last administered on 10/12/18 21:17; Admin Dose 1 UNIT; Start 10/11/18 at 17:55 Methimazole (Tapazole) 5 mg DAILY PO Last administered on 10/14/18 08:39; Admin Dose 5 MG; Start 10/12/18 at 09:00 Glyburide (Micronase) 5 mg BID PO Last administered on 10/14/18 08:40; Admin Dose 5 MG; Start 10/12/18 at 21:00 Ticagrelor (Brilinta) 90 mg BID PO Last administered on 10/14/18 08:43; Admin Dose 90 MG; Start 10/12/18 at 21:00 Isosorbide Mononitrate (Imdur) 60 mg DAILY PO Last administered on 10/14/18at 08:39; Admin Dose 60 MG; Start 10/12/18 at 13:00 Lisinopril (Zestril) 10 mg DAILY PO ; Start 10/14/18 at 10:00 COURTNEY TRONCOSO October 14, 2018 10:01
[2018-10-14] MEDS ORDERED: CLOP75TA27 PO (13:08)
--- NOTE | 2018-10-14 13:19 | PDOCDIS ---
Discharge Instructions CONDITION [id number] Patient Condition: [id number] Stable FOLLOW UP/APPOINTMENTS Follow-up Plan 1. Please play close attention to your med reconciliation form, many of her medications have been changed, new prescriptions will be given at discharge 2. Please note that for Plavix you will take 4 tablets at 6 PM on the day of discharge, this is only a one-time dosage, after that you only take 1 tablet a day 3. Please follow-up with Dr. Tiffanie JOY 4. Please return to [facility] ED on October, 6 PM for scheduled procedure on October 30. 5. Please follow-up with your primary care physician to continue to work-up your new onset hyperthyroidism, currently started on methimazole LYNSEY WILD October 14, 2018 13:19
--- NOTE | 2018-10-14 13:23 | DS ---
Date/Time of Note Date/Time of Note DATE: 10/14/18 TIME: 13:23 Discharge Summary Admission/Discharge Info Admit Date/Time October 10, 2018 at 01:49 Discharge Date/Time Patient Condition: Stable Hospital Course Patient is a female with a past medical history significant for hypertension, dyslipidemia, diabetes mellitus who presents to [facility]. Patient was diagnosed with non-ST elevation NM and was seen by cardiology. Patient had 2 cardiac catheterizations of the ramus and OM. Patient had an OM stent however the ramus cannot be stented as it cannot be dilated by balloon. Patient is now scheduled for outpatient elective Rotablator procedure for correction of disease in the ramus on November 29. Patient doing well, chest pain-fr ee, cleared by cardiology for discharge. Patient had extensive medication changes and patient's family was extensively counseled on which medications to continue and to stop. Patient's insurance will not cover Brilinta so will be discharged with Plavix. Patient doing well and will follow up with banking paralegal soon as possible. Patient's family also noted patient's new onset hype rthyroidism and continued management per her PCP, will be discharged with appropriate medication, I recommended repeat thyroid values in a few weeks in order to assess need of continued medication. Discharge diagnosis Non-ST elevated NM, resolving Acute kidney injury, resolved Hyperthyroidism Hypertension Dyslipidemia Diabetes mellitus Home Meds Active Scripts Clopidogrel Bisulfate (Clopidogrel) 75 Mg Tablet, 75 MG PO DAILY, #34 TAB Please take 4 tablets at 6pm today. Please take 1 tablet daily starting tomorrow. Prov:LYNSEY WILD 10/14/18 Lisinopril* (Lisinopril*) 10 Mg Tablet, 10 MG PO DAILY, #30 TAB Prov:LYNSEY WILD 10/14/18 Methimazole* (Methimazole*) 5 Mg Tablet, 5 MG PO DAILY for 30 Days, #30 TAB Prov:LYNSEY WILD 10/14/18 Aspirin (Aspirin) 81 Mg Chew, 81 MG PO DAILY for 30 Days, #30 TAB Prov:LYNSEY WILD 10/14/18 Isosorbide Mononitrate* (Isosorbide Mononitrate*) 60 Mg Tab.er.24h, 60 MG PO DA MICHELLE for 30 Days, #30 Prov:LYNSEY WILD 10/14/18 Carvedilol* (Carvedilol*) 25 Mg Tablet, 25 MG PO BID for 30 Days, #60 TAB Prov:LYNSEY WILD 10/14/18 Atorvastatin* (Atorvastatin*) 80 Mg Tablet, 80 MG PO HS for 30 Days, #30 TAB Prov:LYNSEY WILD 10/14/18 Fluticasone Propionate (Flonase Allergy Relief) 9.9 Ml [place].susp, 1 SPRAY NASAL BID, #1 BOTTLE TO EACH NOSTRIL Prov:MARIAN LAGUNAS MD 03/07/18 Reported Medications Loratadine* (Loratadine*) 10 Mg Tablet, 10 MG PO DAILY 10/10/18 Insulin Glargine,Hum.rec.anlog (Basaglar Kwikpen U-100) 100 Unit/1 Ml Insuln.pen, 28 UNIT SC QHS, EA 10/10/18 Omeprazole* (Omeprazole*) 20 Mg Capsule.dr, 20 MG PO DAILY, #30 CAP 10/10/16 Metformin* (Glucophage*) 1,000 Mg Tablet, 1000 MG PO BID, TAB 07/01/14 Glyburide* (Diabeta*) 5 Mg Tablet, 5 MG PO BID 11/01/10 Discontinued Reported Medications Ketotifen Fumarate (KETOTIFEN FUMARATE) 5 Ml Drops, 5 ML OP DAILY, BOTTLE INSTILL 1 DROP INTO AFFECTED EYE ONCE DAILY 10/10/18 Hydrochlorothiazide (Hydrochlorothiazide) 12.5 Mg Capsule, 12.5 MG PO DAILY for 30 Days, #30 10/10/18 Atorvastatin (Atorvastatin) 10 Mg Tablet, 10 MG PO QHS for 90 Days, #90 10/10/18 Amlodipine Besylate* (Amlodipine Besylate*) 10 Mg Tablet, 10 MG PO DAILY, #30 TAB 10/10/18 Hydralazine Hcl* (Hydralazine Hcl*) 25 Mg Tab, 25 MG PO BID for 30 Days, #60 10/10/18 Fluticasone Propionate* (Fluticasone Propionate* Nasal) 50 Mcg/[place] - 16 Gm [place].susp, 2 SPRAYS NASAL DAILY, #1 BOTTLE TO EACH NOSTRIL 10/10/16 Losartan Potassium* (Losartan Potassium*) 50 Mg Tablet, 50 MG PO BID, TAB 07/01/14 Atenolol* (Atenolol*) 50 Mg Tablet, 50 MG PO DAILY, TAB 07/01/14 Acetaminophen* (Acetaminophen*) 500 MG Extra Strength Tablet, 500 MG PO Q4H PRN for PAIN AND OR ELEVATED TEMP, TAB 10/10/16 Discontinued Scripts Benzonatate* (Tessalon Perle*) 100 Mg Capsule, 100 MG PO Q8H PRN for COUGH, #20 CAP Prov:ENRIQUE MCKEON PA-C 07/17/17 Acetaminophen* (Tylophen*) 500 Mg Capsule, 1 CAP PO Q6H PRN for PAIN AND OR ELEVATED TEMP, #20 CAP Prov:PASILAINGRIS JETER 09/10/18 Ondansetron Hcl* (Zofran*) 4 Mg Tablet, 4 MG PO Q8H PRN for NAUSEA AND/OR VOMITING, #30 TAB Prov:PASILAINGRIS JETER 09/10/18 Ibuprofen* (Motrin*) 600 Mg Tab, 600 MG PO Q6H PRN for PAIN AND OR ELEVATED TEMP, #30 TAB Prov:OMEROILAINGRIS JETER 09/10/18 Acetamin/Butalbital/Caffeine* (Fioricet*) [id number] Tab, 1 TAB PO Q6H PRN for PAIN, #30 TAB Prov:IVONNE MUHAMMAD PA-C 06/30/18 Phenazopyridine Hcl* (Pyridium*) 200 Mg Tab, 200 MG PO TID PRN for URINARY PAIN, #15 TAB Prov:DEBORA YANEZ PA-C 12/05/17 Naproxen* (Naprosyn*) 500 Mg Tablet, 500 MG PO BID PRN for PAIN AND/OR INFLAMMATION, #30 TAB Prov:DEBORA YANEZ PA-C 12/05/17 Oseltamivir Phosphate* (Tamiflu*) 75 Mg Capsule, 75 MG PO BID for 5 Days, CAP Prov:ENRIQUE MCKEON PA-C 07/17/17 Azithromycin* (Zithromax*) 250 Mg Tablet, 250 MG PO .JOSIAH DIRECTED, #6 TAB TAKE 500 MG (2 TABS) THE FIRST DAY THEN 250 MG (1 TAB) DAYS 2-5 Prov:ENRIQUE MCKEON PA-C 07/17/17 Promethazine HCl/Codeine (Prometh-Codein 6.25-10 mg/5 ml) 5 Ml Syrup, 5 ML PO QHS for 5 Days, #120 ML Prov:CLEOPATRA OROURKE MD 03/26/17 Ibuprofen* (Motrin*) 600 Mg Tab, 600 MG PO Q8, #30 TAB Prov:CLEOPATRA OROURKE MD 03/26/17 Azithromycin* (Zithromax*) 250 Mg Tablet, 250 MG PO .ZPACK DIRECTED, #6 TAB TAKE 500 MG (2 TABS) THE FIRST DAY THEN 250 MG (1 TAB) DAYS 2-5 Prov:CLEOPATRA OROURKE MD 03/26/17 Benzonatate* (Tessalon Perle*) 100 Mg Capsule, 100 MG PO Q8H PRN for COUGH, #20 CAP Prov:ENRIQUE MCKEON PA-C 01/13/17 Azithromycin* (Zithromax*) 250 Mg Tablet, 250 MG PO .ZPACK DIRECTED, #6 TAB TAKE 500 MG (2 TABS) THE FIRST DAY THEN 250 MG (1 TAB) DAYS 2-5 Prov:ENRIQUE MCKEON PA-C 01/13/17 Bismuth Subsalicylate* (Pepto-Bismol*) 262 Mg/15 Ml Oral.susp, 15 ML PO Q3H PRN for DIARRHEA for 4 Days, ML Prov:SAIGE SALEH MD 01/03/17 Ondansetron (Ondansetron Odt) 8 Mg Tab.rapdis, 8 MG PO Q6H PRN for NAUSEA AND/OR VOMITING, #8 TAB Prov:SAIGE SALEH MD 01/03/17 Phenazopyridine Hcl* (Pyridium*) 100 Mg Tab, 100 MG PO TID, #8 TAB Prov:JONATHON WILD PA-C 01/02/17 Nitrofurantoin Monohyd Macrocr* (Macrobid*) 100 Mg Capsr, 100 MG PO BID for 7 Days, CAP Prov:JONATHON WILD PA-C 01/02/17 Ranitidine Hcl* (Zantac*) 150 Mg Tablet, 150 MG PO BID PRN for EPIGASTRIC PAIN, #30 TAB Prov:LUIS BRAR DO 10/11/16 Naproxen* (Naproxen*) 500 Mg Tablet, 500 MG PO BID PRN for PAIN, #20 TAB Prov:LUIS BRAR DO 10/11/16 Ibuprofen* (Motrin*) 600 Mg Tab, 600 MG PO Q6, #20 TAB Prov:SAIGE SALEH MD 03/05/15 Meclizine Hcl* (Antivert*) 25 Mg Tablet, 25 MG PO Q6H PRN for ANXIETY, #20 TAB Prov:MICHAELA MURGUIA MD 12/21/14 Follow-up Plan 1. Please play close attention to your med reconciliation form, many of her medications have been changed, new prescriptions will be given at discharge 2. Please note that for Plavix you will take 4 tablets at 6 PM on the day of discharge, this is only a one-time dosage, after that you only take 1 tablet a day 3. Please follow-up with Dr. Tiffanie JOY 4. Please return to [facility] ED on October, 6 PM for scheduled procedure on October 30. 5. Please follow-up with your primary care physician to continue to work-up your new onset hyperthyroidism, currently started on methimazole Primary Care Provider Not On Staff Doctor Pending Labs Laboratory Tests Test 10/13/18 17:12 10/13/18 21:06 10/14/18 04:44 10/14/18 06:44 Bedside 88 133 65 Glucose mg/dL (70-220) mg/dL (70-220) mg/dL (70-220) White Blood 8.9 Count 10^3/ul (4.8-1 0.8) Red Blood 3.44 Count 10^6/ul (4.20- 5.40) Hemoglobin 9.2 g/dl (12.0-16. 0) Hematocrit 28.7 % (37.0-47.0) Mean 83.4 Corpuscular fl (82.0-101.0 Volume ) Mean 26.7 Corpuscular pg (29.0-33.0) Hemoglobin Mean 32.1 Corpuscular g/dl (32.0-37. Hemoglobin Conc 0) ent Red Cell 13.6 Distribution % (11.5-14.5) Width Platelet Count 307 10^3/UL (140-4 15) Mean Platelet 11.6 Volume fl (7.4-10.4) Immature 0.100 Granulocytes % % (0.001-0.429 ) Neutrophils % 57.3 % (39.0-77.0) Lymphocytes % 29.8 % (15.0-51.0) Monocytes % 9.4 % (0.0-11.0) Eosinophils % 3.3 % (0.0-7.0) Basophils % 0.1 % (0.0-2.0) Nucleated Red 0.0 Blood Cells % /100WBC (0.0-0 .0) Immature 0.010 Granulocytes # 10^3/ul (0.0-0 .031) Neutrophils # 5.1 10^3/ul (1.6-7 .5) Lymphocytes # 2.6 10^3/ul (0.8-2 .9) Monocytes # 0.8 10^3/ul (0.3-0 .9) Eosinophils # 0.3 10^3/ul (0.0-0 .5) Basophils # 0.0 10^3/ul (0.0-0 .1) Nucleated Red 0.0 Blood Cells # 10^3/ul (0.0-0 .0) Sodium Level 142 mmol/L (135-14 4) Potassium 3.4 Level mmol/L (3.5-5. 1) Chloride Level 109 mmol/L (97-110 ) Carbon Dioxide 24 Level mmol/L (21-31) Anion Gap 9 (5-13) Blood Urea 19 Nitrogen mg/dl (7-20) Creatinine 1.08 mg/dl (0.44-1. 00) Est Glomerular 54 Filtrat mL/min (>60) Rate mL/min Glucose Level 65 mg/dl (70-220) Calcium Level 9.4 mg/dl (8.4-10. 2) Phosphorus 5.0 Level mg/dl (2.5-4.9 ) Magnesium 2.0 Level mg/dl (1.7-2.5 ) Test 10/14/18 07:09 10/14/18 07:54 10/14/18 12:08 Bedside 91 137 199 Glucose mg/dL (70-220) mg/dL (70-220) mg/dL (70-220) LYNSEY WILD October 14, 2018 13:23
== END 2018-10-14 14:47 | disposition home or self-care (01) | DRG 247 ==
LOC: E/R 22:49 → TEL 10-10 01:49 → EDBEDREQSVC 10-10 03:30 → EDBEDREQTM 10-10 03:30 → ICU 10-12 12:30
PROVIDERS: ADMIT Family Medicine; ATTEND Internal Medicine
PROC: 4A023N7 Measurement of Cardiac Sampling and Pressure, Left Heart, Percutaneous Approach (ICD-10-PCS; 2018-10-12)
PROC: B211YZZ Fluoroscopy of Multiple Coronary Arteries using Other Contrast (ICD-10-PCS; 2018-10-12)
PROC: 02703ZZ Dilation of Coronary Artery, One Artery, Percutaneous Approach (ICD-10-PCS; 2018-10-12 11:30)
PROC: 027034Z Dilation of Coronary Artery, One Artery with Drug-eluting Intraluminal Device, Percutaneous Approach (ICD-10-PCS; principal; 2018-10-13 14:00)
DX: I21.4 Non-ST elevation (NSTEMI) myocardial infarction (principal); N17.9 Acute kidney failure, unspecified; E11.65 Type 2 diabetes mellitus with hyperglycemia; I10 Essential (primary) hypertension; I25.10 Atherosclerotic heart disease of native coronary artery without angina pectoris; Z68.31 Body mass index [BMI] 31.0-31.9, adult; E66.9 Obesity, unspecified; K21.9 Gastro-esophageal reflux disease without esophagitis; E78.5 Hyperlipidemia, unspecified; E05.90 Thyrotoxicosis, unspecified without thyrotoxic crisis or storm; Z79.4 Long term (current) use of insulin
CPT/HCPCS: 36415; 71045; 71275; 80048; 80053; 80061; 81003; 81025; 82306; 82550; 82553; 82962; 83036; 83735; 84100; 84436; 84439; 84443; 84480; 84481; 84484; 85025; 85610; 85730; 87081; 92920; 92928; 93005; 93306; 93458; 96374; C1725; C1874; C1894; C9113; J0360; J0583; J1200; J1644; J1815; J2250; J3010; J7030; Q9967

== ENCOUNTER 2018-10-29 21:15 | Observation (INO) | payer OTHER ==
[~2018-10-29] VITALS: Ht 165.1 cm; Wt 84.6 kg
[~2018-10-29 21:15] MED LIST changes: -ACET-141 PO; -ACET500C5 PO; +ASPI-831 PO; -ATEN50TA PO; +ATOR-2 PO; -AZIT250T PO; -BENZ-6 PO; -BISM262O23 PO; +CARV25TA79 PO; +CLOP75TA27 PO; -FIORICET PO; -FLUT16SP17 NASAL; -IBUP-1542 PO; +INSU100I33 SC; +ISOS60TA PO; +LISI10TA2 PO; +LORA10TA3 PO; -LOSA50TA14 PO; -MECL25TA2 PO; +METH-493 PO; -NAPR-688 PO; -NAPR-985 PO; -NITR-58 PO; -ONDA4TAB8 PO; -ONDA8TAB14 PO; -OSEL75CA23 PO; -PHEN-537 PO; -PHEN-538 PO; -PROM5SYR2 PO; -RANI150T35 PO
[2018-10-29] MEDS ORDERED: NACL 0.9% 3 ML SYG IV SCH (23:30)
[2018-10-29] MEDS ORDERED: MAGNESIUM HYDROXIDE 30ML CUP PO PRN (23:30)
[2018-10-29] MEDS ORDERED: NITROGLYCERIN (SL) 0.4 MG TAB SL PRN (23:30)
[2018-10-29] MEDS ORDERED: LORAZEPAM 2 MG INJ IV PRN (23:30)
[2018-10-29] MEDS ORDERED: ALBUTEROL/IPRATROPIUM (NEB) 3 ML AMP HHN PRN (23:30)
[2018-10-29] MEDS ORDERED: morphine 2 MG INJ IV PRN (23:30)
[2018-10-29] MEDS ORDERED: hydrALAzine 20 MG INJ IV PRN (23:30)
[2018-10-29] MEDS ORDERED: DOCUSATE SODIUM 100 MG CAP PO PRN (23:30)
[2018-10-29] MEDS ORDERED: ONDANSETRON 4 MG INJ IV PRN ×2 (23:30)
[2018-10-29] MEDS ORDERED: HYDROCODONE/APAP (5/325) TAB PO PRN (23:30)
[2018-10-29] MEDS ORDERED: ACETAMINOPHEN 325 MG TAB PO PRN ×2 (23:30)
[2018-10-29] MEDS: SOD CHLORIDE 0.45% 1,000 ML IV SCH (23:55)
[2018-10-30] VITALS (37 sets, daily range): BP systolic 127–178; BP diastolic 58–91; PULSE 61–98; RESP 6–24; Ht 165.1 cm; Wt 84.6 kg
--- NOTE | 2018-10-30 00:10 | ERD ---
ER Documentation Chief Complaint Chief Complaint sent by pmd for preop clearance, for heart surgery in am HPI 48-year-old female with recent admission for non-ST elevation myocardial infarction had an angiogram. The patient presents to the emergency room with referral from her primary manager costing as the patient needs a repeat angiogram given possibly unstented lesion. Patient denies any chest pain shortness of breath. No fevers or chills. Patient is asymptomatic currently. Patient is scheduled for angiogram at 7:30 AM. ROS All systems reviewed and are negative except as per history of present illness. Medications Home Meds Active Scripts Clopidogrel Bisulfate (Clopidogrel) 75 Mg Tablet, 75 MG PO DAILY, #34 TAB Please take 4 tablets at 6pm today. Please take 1 tablet daily starting tomorrow. Prov:LYNSEY WILD 10/14/18 Lisinopril* (Lisinopril*) 10 Mg Tablet, 10 MG PO DAILY, #30 TAB Prov:LYNSEY WILD 10/14/18 Methimazole* (Methimazole*) 5 Mg Tablet, 5 MG PO DAILY for 30 Days, #30 TAB Prov:LYNSEY WILD 10/14/18 Aspirin (Aspirin) 81 Mg Chew, 81 MG PO DAILY for 30 Days, #30 TAB Prov:LYNSEY WILD 10/14/18 Isosorbide Mononitrate* (Isosorbide Mononitrate*) 60 Mg Tab.er.24h, 60 MG PO DAILY for 30 Days, #30 Prov:LYNSEY WILD 10/14/18 Carvedilol* (Carvedilol*) 25 Mg Tablet, 25 MG PO BID for 30 Days, #60 TAB Prov:LYNSEY WILD 10/14/18 Atorvastatin* (Atorvastatin*) 80 Mg Tablet, 80 MG PO HS for 30 Days, #30 TAB Prov:LYNSEY WILD 10/14/18 Fluticasone Propionate (Flonase Allergy Relief) 9.9 Ml [place].susp, 1 SPRAY NASAL BID, #1 BOTTLE TO EACH NOSTRIL Prov:MARIAN LAGUNAS MD 03/07/18 Reported Medications Loratadine* (Loratadine*) 10 Mg Tablet, 10 MG PO DAILY 10/10/18 Insulin Glargine,Hum.rec.anlog (Basaglar Kwikpen U-100) 100 Unit/1 Ml Insuln.pen, 28 UNIT SC QHS, EA 10/10/18 Omeprazole* (Omeprazole*) 20 Mg Capsule.dr, 20 MG PO DAILY, #30 CAP 10/10/16 Metformin* (Glucophage*) 1,000 Mg Tablet, 1000 MG PO BID, TAB 07/01/14 Glyburide* (Diabeta*) 5 Mg Tablet, 5 MG PO BID 11/01/10 Allergies Allergies: Coded Allergies: No Known Allergies (Unverified Allergy, Mild, 10/10/18) PMhx/Soc History of Surgery: Yes (CLOT REMOVAL (10/22/18)) Anesthesia Reaction: No Hx Neurological Disorder: No Hx Respiratory Disorders: No Hx Cardiac Disorders: Yes Hx Psychiatric Problems: No Hx Miscellaneous Medical Probl: No Hx Alcohol Use: No Hx Substance Use: No Hx Tobacco Use: No Smoking Status: Never smoker FmHx Family History: No diabetes Physical Exam Vitals Vital Signs Date Temp Pulse Resp B/P (MAP) Pulse Ox O2 O2 Flow FiO2 Time Delivery Rate 10/29/18 78 12 131/59 100 High Flow 22:25 (83) 10/29/18 98.7 85 18 170/79 98 21:51 (109) Physical Exam General: Well developed, well nourished, no acute distress Head: Normocephalic, atraumatic. Eyes: Pupils equally reactive, EOM intact ENT: Moist mucous membranes Neck: Supple, no lymphadenopathy Respiratory: Lungs clear bilaterally, no distress Cardiovascular: RRR, no murmurs, rubs, or gallops Abdominal: Soft, non-tender, non-distended, no peritoneal signs : Deferred MSK: No edema, no unilateral swelling, 5/5 strength Neurologic: Alert and oriented, moving all extremities, normal speech, no focal weakness, no cerebellar signs Skin: No rash Psych: Normal mood Result Diagram: 10/29/18 2311 10/29/18 2311 Results 24 hrs Laboratory Tests Test 10/29/18 23:11 White Blood Count 9.4 10^3/ul Red Blood Count 3.32 10^6/ul Hemoglobin 9.0 g/dl Hematocrit 27.3 % Mean Corpuscular Volume 82.2 fl Mean Corpuscular Hemoglobin 27.1 pg Mean Corpuscular Hemoglobin Concent 33.0 g/dl Red Cell Distribution Width 13.8 % Platelet Count 289 10^3/UL Mean Platelet Volume 10.7 fl Immature Granulocytes % 0.200 % Neutrophils % 43.7 % Lymphocytes % 43.3 % Monocytes % 8.8 % Eosinophils % 3.7 % Basophils % 0.3 % Nucleated Red Blood Cells % 0.0 /100WBC Immature Granulocytes # 0.020 10^3/ul Neutrophils # 4.1 10^3/ul Lymphocytes # 4.1 10^3/ul Monocytes # 0.8 10^3/ul Eosinophils # 0.4 10^3/ul Basophils # 0.0 10^3/ul Nucleated Red Blood Cells # 0.0 10^3/ul Prothrombin Time 12.5 Sec Prothrombin Time Ratio 1.0 INR International Normalized Ratio 0.92 Activated Partial Thromboplast Time 25.7 Sec Sodium Level 135 mmol/L Potassium Level 4.0 mmol/L Chloride Level 98 mmol/L Carbon Dioxide Level 27 mmol/L Anion Gap 10 Blood Urea Nitrogen 19 mg/dl Creatinine 1.05 mg/dl Est Glomerular Filtrat Rate mL/min 56 mL/min Glucose Level 100 mg/dl Calcium Level 9.2 mg/dl Current Medications Medications Dose Sig/Avel Start Time Status Last (Trade) Ordered Route PRN Stop Time Admin Dose Reason Admin Ondansetron 4 mg ER BRIDGE 10/29/18 DC HCl (Zofran PRN IV 23:30 10/29/18 Inj) NAUSEA/VOMITI 23:49 NG 650 mg ER BRIDGE 10/29/18 Acetaminophen PRN PO 23:30 10/30/18 (Tylenol .MILD PAIN 23:29 Tab) 1-3 OR TEMP IV Flush 3 ml PER 10/29/18 (NS 3 ml) PROTOCOL IV 23:30 Ondansetron 4 mg Q6H PRN 10/29/18 HCl (Zofran IV 23:30 Inj) NAUSEA/VOMITI NG 650 mg Q6H PRN 10/29/18 Acetaminophen PO .PAIN 1-3 23:30 (Tylenol OR TEMP Tab) 1 tab Q6H PRN 10/29/18 Acetaminophen PO .MOD PAIN 23:30 / 4-6 Hydrocodone Bitart ([place] (5/325)) Morphine 2 mg Q4H PRN 10/29/18 Sulfate IV .SEVERE 23:30 (morphine) PAIN 7-10 Docusate 100 mg Q12H PRN 10/29/18 Sodium PO 23:30 (Colace) .CONSTIPATION Magnesium 30 ml DAILY PRN 10/29/18 Hydroxide PO 23:30 (Milk Of Mag) .CONSTIPATION Heparin 5,000 unit Q12 SC 10/30/18 Sodium 09:00 (Porcine) (Heparin (5000 Units/1ml)) Sodium 1,000 ml @ [id number] IV 10/29/18 10/29/18 Chloride 75 mls/hr 23:23 23:55 Lorazepam 0.5 mg Q6H PRN 10/29/18 (Ativan) IV ANXIETY 23:30 Albuterol/ 3 ml Q4H RESP 10/29/18 Ipratropium THERAPY PRN 23:30 (Duoneb) HHN SHORTNESS OF BREATH Hydralazine 10 mg Q6H PRN 10/29/18 HCl IV ELEVATED 23:30 (Apresoline) BLOOD PRESSURE 1 tab Q5M PRN 10/29/18 Nitroglycerin SL ANGINA 23:30 (Nitroglyceri n (Sl Tab) 0.4 Mg) Discontinue ONCE ONCE 10/29/18 DC Miscellaneous current oral XX 23:30 10/29/18 sulfonylur... 23:43 Information (* Miscellaneous Pharmacy Order) Diagnostic 1 ea 02 XX 10/30/18 Test (Pha) 02:00 (Accu-Chek) ONCE ONCE 10/29/18 DC Miscellaneous HYPOGLYCEMIA XX 23:30 10/29/18 PROTOCOL 23:45 Information w... (* Miscellaneous Pharmacy Order) Insulin NOVOLOG Q4 SC 10/30/18 Aspart *MILD* 01:00 (Novolog ALGORI... Insulin Pen) Discontinue ONCE ONCE 10/29/18 DC Miscellaneous all previ... XX 23:30 10/29/18 23:45 Information (* Miscellaneous Pharmacy Order) 80 mg HS PO 10/30/18 Atorvastatin 21:00 Calcium (Lipitor) Carvedilol 25 mg BID PO 10/30/18 (Coreg) 09:00 Fluticasone 1 spray BID NASAL 10/30/18 Propionate 09:00 (Flonase 0.05% Nasal) Insulin 28 unit QHS SC 10/30/18 Glargine 21:00 (Lantus) Isosorbide 60 mg DAILY PO 10/30/18 Mononitrate 09:00 (Imdur) Loratadine 10 mg DAILY PO 10/30/18 (Claritin) 09:00 20 mg DAILY PO 10/30/18 DC Miscellaneous 09:00 10/30/18 Information 09:00 40 mg DAILY@06 10/30/18 Pantoprazole PO 06:00 (Protonix Tab) Procedures/MDM EKG, MONITORS, & DIAGNOSTIC IMAGING: EKG: I reviewed and interpreted a 12-lead EKG. Rhythm: Normal sinus rhythm ST Changes: No contiguous ST segment elevations T waves: No contiguous T wave inversions Impression: [No evidence of acute cardiac ischemia] Chest x-ray: I reviewed and interpreted a 1 view of the chest Mediastinum: No enlargement Cardiac silhouette: No cardiomegaly Airspace: Clear lung silva bilaterally without evidence of pneumothorax Bones: No evidence of fracture LAB INTERPRETATION: I reviewed the laboratory testing and it shows [no evidence of acute process] MEDICAL DECISION MAKING: Patient is here for preoperative evaluation prior to angiogram at 7:30 AM. The patient is having no symptoms of acute coronary syndrome. Patient recently had stent deployment secondary to non-ST ovation myocardial infarction. ER COURSE: * Primary manager costing, Dr. Moreno notified * Patient is asymptomatic currently CONSULTATION: [None] DISPOSITION PLAN: Accepting care team and consultations: I discussed the current laboratory data, diagnostic imaging and emergency care provided. Admitting team: Dr. Holman Admitting team indication: Insurance directed Departure Diagnosis: Primary Impression: Coronary artery disease Coronary Disease-Associated Artery/Lesion type: unspecified vessel or lesion type [place] vs. transplanted heart: [place] heart Associated angina: without angina Qualified Codes: I25.10 - Atherosclerotic heart disease of [place] coronary artery without angina pectoris Additional Impression: Encounter for pre-operative cardiovascular clearance Condition: RAISA Castro MD Oct 30, 2018 00:10
[2018-10-30] MEDS: INSULIN ASPART [NOVOLOG] 3 ML PEN SC SCH ×6 (01:00→21:04)
[2018-10-30] MEDS: ACCU-CHEK XX SCH (02:00)
[2018-10-30] MEDS: PANTOPRAZOLE (EC) 40 MG TAB PO SCH (06:01)
--- NOTE | 2018-10-30 07:29 | HP ---
DATE OF ADMISSION: 10/29/2018 This is a 48-year-old female. CHIEF COMPLAINT: Sent in by certified alcohol drug counselor for angiogram. HISTORY OF PRESENT ILLNESS: A 48-year-old female with a past medical history non-STEMI occurred last month, hyperthyroidism, diabetes, coronary artery disease, hypertension, high cholesterol, who was s ent in by her certified alcohol drug counselor today for the need for an angiogram. Apparently, she needs this because o f possibility of an unstented lesion. Again, last when she was here in the hospital and treated for non-STEMI and seen by certified alcohol drug counselor at that time. The patient presently denies any chest pain or shor tness of breath. No upper or lower GI bleeding, no fevers or chills, no nausea, vomiting or diarrhea , constipation. PAST MEDICAL HISTORY: As above. ALLERGIES: NO KNOWN DRUG ALLERGIES. HOME MEDICATIONS: 1. Loratadine 10 mg daily. 2. Plavix 75 mg daily. 3. Atorvastatin 80 mg at bedtime. 4. Coreg 25 mg b.i.d. 5. Imdur 60 mg daily. 6. Lisinopril 10 mg daily. 7. Aspirin 81 mg daily. 8. Flonase b.i.d. 9. Omeprazole 20 mg daily. 10. Glyburide 5 mg b.i.d. 11. Basaglar insulin 28 units at bedtime. 12. Metformin 1000 mg b.i.d. 13. Methimazole or Tapazole 5 mg daily. PAST SURGICAL HISTORY: She has had a cardiac stent placement in the last month. FAMILY HISTORY: Noncontributory. SOCIAL HISTORY: Negative for smoking or drinking, or IV drug abuse. PHYSICAL EXAMINATION: VITAL SIGNS: Today, T-max 98.7, pulse 85 to 78, respirations 18 to 12, blood pressure was 170 to 131 systolic over 79 to 59 diastolic, satting at 98% room air. GENERAL: The patient lying in bed, answers questions appropriately. No acute distress. HEENT: Pupils equal, round, reactive to light, extraocular muscles intact. NECK: Supple, no thyromegaly. LUNGS: Clear to auscultation bilaterally. CARDIOVASCULAR: S1, S2 heard. No rubs or gallops. ABDOMEN: Soft, nontender, nondistended. Normal bowel sounds. No guarding. MUSCULOSKELETAL: No lower extremity edema bilaterally. NEUROLOGIC: No focal deficits. LABORATORIES: CBC is normal. Basic metabolic panel was normal. Troponin is negative x1. Chest x-r ay today shows no active cardiopulmonary disease. ASSESSMENT AND PLAN: A 48-year-old female with a past medical history of CAD with stent placement in the past, hyperthyroidism, recent non-STEMI last month; diabetes, hypertension, high cholesterol, wh o comes in for the need for another left heart catheterization, given possibility of unstented lesion s. 1. CAD with stent. Again, the patient will undergo a left heart catheterization later today. Follo w up post-procedure recommendations from cardiology team. Continue patient's home Lipitor and beta b locker and Imdur. Follow up TSH, A1c, lipid panel. 2. Diabetes. Follow up A1c. Continue Basaglar insulin and sliding scale insulin. 3. History of recent non-STEMI. See #1. 4. Hyperthyroidism. Continue Tapazole for now. 5. History of high cholesterol. Continue statin. Follow up lipid panel. 6. Hypertension. See #1. 7. Deep venous thrombosis prophylaxis, heparin subcutaneously. Dictated By: MARILEE AYALA Conf#: [id number] DID#: [id number]
[2018-10-30] MEDS ORDERED: NITROGLYCERIN (IC) 100 MCG/ML INJ ONE ×2 (07:33→08:40)
[2018-10-30] MEDS ORDERED: HEPARIN 1000 UNITS/ML 10 ML INJ ONE (07:33)
[2018-10-30] MEDS ORDERED: IODIXANOL LOCM 50 ML BTL ONE (07:33)
[2018-10-30] MEDS ORDERED: MIDAZOLAM 1 MG/ML 2 ML INJ ONE (07:33)
[2018-10-30] MEDS ORDERED: VERAPAMIL 5 MG INJ ONE (07:33)
[2018-10-30] MEDS ORDERED: FENTAnyl 50 MCG/ML VIAL ONE (07:33)
[2018-10-30] MEDS ORDERED: IODIXANOL LOCM 100 ML BTL ONE (07:33)
--- NOTE | 2018-10-30 07:39 | CONS ---
Assessment/Plan Assessment/Plan Hospital Course (Demo Recall) CAD with recent NSTEMI:s/p cath with disease of Ramus and bifurcating OM. Ramus was ballooned but did not expand so will need a rotablator. s/p successful PCI of OM bifurcation 10/13/18. Here for PCI of Ramus Hyperthyroidism Hypertension Dyslipidemia Diabetes mellitus -PCI of Ramus with rotablator today -ticagrelor 90mg BID -imdur 60mg (can stop after PCI) -lisinopril 10mg -aspirin 81mg daily -atorvastatin 80mg daily -carvedilol 25mg BID Consultation Date/Type/Reason Admit Date/Time Oct 29, 2018 at 23:07 Date of Consultation: Oct 30, 2018 Type of Consult Cardiology Reason for Consultation Chest pain, staged PCI Requesting Provider: RAISA DOHERTY MD Date/Time of Note DATE: 10/30/18 TIME: 07:35 Hx of Present Illness 48 yo F known to me from prior hospitalization. She has a h/o CAD with NSTEMI last hospitalization. She had attempted PCI of her Ramus which was not dilateable and needs rotablator. She did have PCI of her bifurcation OM lesions. She has a h/o DM, HTN, HL, hyperthyroidism otherwise. She has been compliant with all her meds including ASA and Brilinta. She has very mild exertional chest pressure still but not at rest. per HPI Past Medical History per HPI Home Meds Active Scripts Clopidogrel Bisulfate (Clopidogrel) 75 Mg Tablet, 75 MG PO DAILY, #34 TAB Please take 4 tablets at 6pm today. Please take 1 tablet daily starting tomorrow. Prov:LYNSEY WILD 10/14/18 Lisinopril* (Lisinopril*) 10 Mg Tablet, 10 MG PO DAILY, #30 TAB Prov:LYNSEY WILD 10/14/18 Methimazole* (Methimazole*) 5 Mg Tablet, 5 MG PO DAILY for 30 Days, #30 TAB Prov:LYNSEY WILD 10/14/18 Aspirin (Aspirin) 81 Mg Chew, 81 MG PO DAILY for 30 Days, #30 TAB Prov:LYNSEY WILD 10/14/18 Isosorbide Mononitrate* (Isosorbide Mononitrate*) 60 Mg Tab.er.24h, 60 MG PO DAILY for 30 Days, #30 Prov:LYNSEY WILD 10/14/18 Carvedilol* (Carvedilol*) 25 Mg Tablet, 25 MG PO BID for 30 Days, #60 TAB Prov:LYNSEY WILD 10/14/18 Atorvastatin* (Atorvastatin*) 80 Mg Tablet, 80 MG PO HS for 30 Days, #30 TAB Prov:LYNSEY WILD 10/14/18 Fluticasone Propionate (Flonase Allergy Relief) 9.9 Ml [place].susp, 1 SPRAY NASAL BID, #1 BOTTLE TO EACH NOSTRIL Prov:MARIAN LAGUNAS MD 03/07/18 Reported Medications Loratadine* (Loratadine*) 10 Mg Tablet, 10 MG PO DAILY 10/10/18 Insulin Glargine,Hum.rec.anlog (Basaglar Kwikpen U-100) 100 Unit/1 Ml Insuln.pen, 28 UNIT SC QHS, EA 10/10/18 Omeprazole* (Omeprazole*) 20 Mg Capsule.dr, 20 MG PO DAILY, #30 CAP 10/10/16 Metformin* (Glucophage*) 1,000 Mg Tablet, 1000 MG PO BID, TAB 07/01/14 Glyburide* (Diabeta*) 5 Mg Tablet, 5 MG PO BID 11/01/10 Medications Current Medications Acetaminophen (Tylenol Tab) 650 mg ER BRIDGE PRN PO .MILD PAIN 1-3 OR TEMP; Start 10/29/18 at 23:30; Stop 10/30/18 at 23:29 IV Flush (NS 3 ml) 3 ml PER PROTOCOL IV ; Start 10/29/18 at 23:30 Ondansetron HCl (Zofran Inj) 4 mg Q6H PRN IV NAUSEA/VOMITING; Start 10/29/18 at 23:30 Acetaminophen (Tylenol Tab) 650 mg Q6H PRN PO .PAIN 1-3 OR TEMP; Start 10/29/18 at 23:30 Acetaminophen/ Hydrocodone Bitart ([place] (5/325)) 1 tab Q6H PRN PO .MOD PAIN 4- 6; Start 10/29/18 at 23:30 Morphine Sulfate (morphine) 2 mg Q4H PRN IV .SEVERE PAIN 7-10; Start 10/29/18 at 23:30 Docusate Sodium (Colace) 100 mg Q12H PRN PO .CONSTIPATION; Start 10/29/18 at 23:30 Magnesium Hydroxide (Milk Of Mag) 30 ml DAILY PRN PO .CONSTIPATION; Start 10/29/18 at 23:30 Heparin Sodium (Porcine) (Heparin (5000 Units/1ml)) 5,000 unit Q12 SC ; Start 10/30/18 at 09:00 Sodium Chloride 1,000 ml @ 75 mls/hr [id number] IV Last administered on 10/29/18at 23:55; Admin Dose 75 MLS/HR; Start 10/29/18 at 23:23 Lorazepam (Ativan) 0.5 mg Q6H PRN IV ANXIETY; Start 10/29/18 at 23:30 Albuterol/ Ipratropium (Duoneb) 3 ml Q4H RESP THERAPY PRN HHN SHORTNESS OF BREATH; Start 10/29/18 at 23:30 Hydralazine HCl (Apresoline) 10 mg Q6H PRN IV ELEVATED BLOOD PRESSURE; Start 10/29/18 at 23:30 Nitroglycerin (Nitroglycerin (Sl Tab) 0.4 Mg) 1 tab Q5M PRN SL ANGINA; Start 10/29/18 at 23:30 Diagnostic Test (Pha) (Accu-Chek) 1 ea 02 XX ; Start 10/30/18 at 02:00 Insulin Aspart (Novolog Insulin Pen) NOVOLOG *MILD* ALGORI... Q4 SC ; Start 10/30/18 at 01:00 Atorvastatin Calcium (Lipitor) 80 mg HS PO ; Start 10/30/18 at 21:00 Carvedilol (Coreg) 25 mg BID PO ; Start 10/30/18 at 09:00 Fluticasone Propionate (Flonase 0.05% Nasal) 1 spray BID NASAL ; Start 10/30/18 at 09:00 Insulin Glargine (Lantus) 28 unit QHS SC ; Start 10/30/18 at 21:00 Isosorbide Mononitrate (Imdur) 60 mg DAILY PO ; Start 10/30/18 at 09:00 Loratadine (Claritin) 10 mg DAILY PO ; Start 10/30/18 at 09:00 Pantoprazole (Protonix Tab) 40 mg DAILY@06 PO Last administered on 10/30/18at 06:01; Admin Dose 40 MG; Start 10/30/18 at 06:00 Aspirin (Aspirin) 81 mg DAILY PO ; Start 10/30/18 at 09:00 Ticagrelor (Brilinta) 90 mg BID PO ; Start 10/30/18 at 09:00 Lisinopril (Zestril) 10 mg DAILY PO ; Start 10/30/18 at 09:00 Allergies: Coded Allergies: No Known Allergies (Unverified Allergy, Mild, 10/10/18) Past Surgical History Past Surgical Hx: cholecystectomy Social History Smoking Status: Never smoker Exam/Review of Systems Vital Signs Vitals Vital Signs Date Temp Pulse Resp B/P (MAP) Pulse Ox O2 O2 Flow FiO2 Time Delivery Rate 10/30/18 97.9 72 18 178/73 98 Room Air 07:14 (108) Intake and Output 10/29/18 10/29/18 10/30/18 1515:00 23:00 07:00 IntakeIntake Total 525 ml BalanceBalance 525 ml Exam Constitutional: alert, oriented Psych: no complaints, nl mood/affect Head: normocephalic, atraumatic Neck: supple; No jvd Respiratory: clear to auscultation; No crackles/rales Cardiovascular: regular rate and rhythm; No edema Gastrointestinal: soft, non-tender; No distended Neurological: nl mental status, nl speech Labs Result Diagram: 10/30/18 0644 10/29/18 2311 Results 24hrs Laboratory Tests Test 10/29/18 23:11 10/29/18 23:12 10/30/18 01:16 10/30/18 02:22 White Blood Count 9.4 Red Blood Count 3.32 L Hemoglobin 9.0 L Hematocrit 27.3 L Mean Corpuscular Volume 82.2 Mean Corpuscular 27.1 L Hemoglobin Mean Corpuscular 33.0 Hemoglobin Concent Red Cell Distribution 13.8 Width Platelet Count 289 Mean Platelet Volume 10.7 H Immature Granulocytes % 0.200 Neutrophils % 43.7 Lymphocytes % 43.3 Monocytes % 8.8 Eosinophils % 3.7 Basophils % 0.3 Nucleated Red Blood 0.0 Cells % Immature Granulocytes # 0.020 Neutrophils # 4.1 Lymphocytes # 4.1 H Monocytes # 0.8 Eosinophils # 0.4 Basophils # 0.0 Nucleated Red Blood 0.0 Cells # Prothrombin Time 12.5 Prothrombin Time Ratio 1.0 INR International 0.92 Normalized Ratio Activated 25.7 Partial Thromboplast Time Sodium Level 135 Potassium Level 4.0 Chloride Level 98 Carbon Dioxide Level 27 Anion Gap 10 Blood Urea Nitrogen 19 Creatinine 1.05 H Est Glomerular Filtrat 56 L Rate mL/min Glucose Level 100 Calcium Level 9.2 Creatine Kinase 35 Creatine Kinase Index 0.6 Creatinine Kinase MB < 0.22 (Mass) Troponin I < 0.012 Free Thyroxine 1.00 Bedside Glucose 47 *L 99 Test 10/30/18 06:01 10/30/18 06:44 Bedside Glucose 202 White Blood Count 9.5 Red Blood Count 3.50 L Hemoglobin 9.3 L Hematocrit 28.8 L Mean Corpuscular Volume 82.3 Mean Corpuscular 26.6 L Hemoglobin Mean Corpuscular 32.3 Hemoglobin Concent Red Cell Distribution 13.9 Width Platelet Count 315 Mean Platelet Volume 11.5 H Immature Granulocytes % 0.200 Neutrophils % 53.2 Lymphocytes % 36.2 Monocytes % 6.7 Eosinophils % 3.5 Basophils % 0.2 Nucleated Red Blood 0.0 Cells % Immature Granulocytes # 0.020 Neutrophils # 5.0 Lymphocytes # 3.4 H Monocytes # 0.6 Eosinophils # 0.3 Basophils # 0.0 Nucleated Red Blood 0.0 Cells # Medications Medications Current Medications Acetaminophen (Tylenol Tab) 650 mg ER BRIDGE PRN PO .MILD PAIN 1-3 OR TEMP; Start 10/29/18 at 23:30; Stop 10/30/18 at 23:29 IV Flush (NS 3 ml) 3 ml PER PROTOCOL IV ; Start 10/29/18 at 23:30 Ondansetron HCl (Zofran Inj) 4 mg Q6H PRN IV NAUSEA/VOMITING; Start 10/29/18 at 23:30 Acetaminophen (Tylenol Tab) 650 mg Q6H PRN PO .PAIN 1-3 OR TEMP; Start 10/29/18 at 23:30 Acetaminophen/ Hydrocodone Bitart ([place] (5/325)) 1 tab Q6H PRN PO .MOD PAIN 4- 6; Start 10/29/18 at 23:30 Morphine Sulfate (morphine) 2 mg Q4H PRN IV .SEVERE PAIN 7-10; Start 10/29/18 at 23:30 Docusate Sodium (Colace) 100 mg Q12H PRN PO .CONSTIPATION; Start 10/29/18 at 23:30 Magnesium Hydroxide (Milk Of Mag) 30 ml DAILY PRN PO .CONSTIPATION; Start 10/29/18 at 23:30 Heparin Sodium (Porcine) (Heparin (5000 Units/1ml)) 5,000 unit Q12 SC ; Start 10/30/18 at 09:00 Sodium Chloride 1,000 ml @ 75 mls/hr [id number] IV Last administered on 10/29/18at 23:55; Admin Dose 75 MLS/HR; Start 10/29/18 at 23:23 Lorazepam (Ativan) 0.5 mg Q6H PRN IV ANXIETY; Start 10/29/18 at 23:30 Albuterol/ Ipratropium (Duoneb) 3 ml Q4H RESP THERAPY PRN HHN SHORTNESS OF BREATH; Start 10/29/18 at 23:30 Hydralazine HCl (Apresoline) 10 mg Q6H PRN IV ELEVATED BLOOD PRESSURE; Start 10/29/18 at 23:30 Nitroglycerin (Nitroglycerin (Sl Tab) 0.4 Mg) 1 tab Q5M PRN SL ANGINA; Start 10/29/18 at 23:30 Diagnostic Test (Pha) (Accu-Chek) 1 ea 02 XX ; Start 10/30/18 at 02:00 Insulin Aspart (Novolog Insulin Pen) NOVOLOG *MILD* ALGORI... Q4 SC ; Start 10/30/18 at 01:00 Atorvastatin Calcium (Lipitor) 80 mg HS PO ; Start 10/30/18 at 21:00 Carvedilol (Coreg) 25 mg BID PO ; Start 10/30/18 at 09:00 Fluticasone Propionate (Flonase 0.05% Nasal) 1 spray BID NASAL ; Start 10/30/18 at 09:00 Insulin Glargine (Lantus) 28 unit QHS SC ; Start 10/30/18 at 21:00 Isosorbide Mononitrate (Imdur) 60 mg DAILY PO ; Start 10/30/18 at 09:00 Loratadine (Claritin) 10 mg DAILY PO ; Start 10/30/18 at 09:00 Pantoprazole (Protonix Tab) 40 mg DAILY@06 PO Last administered on 10/30/18at 06:01; Admin Dose 40 MG; Start 10/30/18 at 06:00 Aspirin (Aspirin) 81 mg DAILY PO ; Start 10/30/18 at 09:00 Ticagrelor (Brilinta) 90 mg BID PO ; Start 10/30/18 at 09:00 Lisinopril (Zestril) 10 mg DAILY PO ; Start 10/30/18 at 09:00 COURTNEY TRONCOSO Oct 30, 2018 07:39
[2018-10-30] MEDS ORDERED: VERAPAMIL 4 MG, NITROGLYCERIN 4 MG, HEPARIN (10000 UNITS/ML) 20,000 UNIT, LIDOCAINE 2% ... IV ONE ×5 (08:00)
[2018-10-30] MEDS ORDERED: CLOPIDOGREL 300 MG TAB ONE (08:23)
[2018-10-30] MEDS ORDERED: ASPIRIN 325 MG TAB ONE (08:23)
[2018-10-30] MEDS ORDERED: TICAGRELOR 90 MG TABLET PO SCH (09:00)
[2018-10-30] MEDS: ASPIRIN 81 MG TAB PO SCH (09:00)
[2018-10-30] MEDS ORDERED: NON-FORMULARY/PATIENT OWN MED (Omeprazole* 20 MG) PO SCH (09:00)
[2018-10-30] MEDS: HEPARIN 5,000 UNIT/1 ML VIAL SC SCH ×2 (09:00→20:39)
[2018-10-30] MEDS ORDERED: ISOSORBIDE MONONITRATE(SR)60 MG TAB PO SCH (09:00)
--- NOTE | 2018-10-30 09:27 | OPR ---
Date/Time of Note Date/Time of Note DATE: 10/30/18 TIME: 09:23 Operative Report Procedure Date: Oct 30, 2018 Preoperative Diagnosis ACS/ unstable angina Postoperative Diagnosis same Operation/Procedure Performed rotoblade RI Surgeon see signature line Driller And Reamer DR MORENO Anesthesia Type: moderate sedation Estimated Blood Loss: minimal Transfusion none Specimen NONE Grafts/Implants none Complications none Procedure Description Date October 30, 2018 Procedure performed: Rotoblading of ramus intermediate using a 1.25 LUKE Indication: 48-year-old who underwent diagnostic angiography and PCI by Dr. Davy Renee in a couple of weeks ago for ACS. Attempt of angioplasty of ramus intermediate at that time was unsuccessful because the balloon could not be expanded. Patient was admitted last night again for chest pain. He underwent diagnostic angiography by Dr. Moreno and rollerblading of this lesion. Procedure in detail Written informed consent I will be optimal treatment after discussed with the patient already. Patient had a diagnostic angiography done as well as got already placed in to the left main. With the wire was advanced into the distal ramus intermediate. Once it was set up outside of the body. Multiple rounds of rollerblading was done and 150 there. To the ramus until it could easily pass.. Intracoronary occlusion of the abdomen contiguous in between. Probably it was removed. Wire was kept and therefore intervention to be done by Dr. Moreno Conclusion: Successful clinical ramus intermediate JUAN REDDING MD [facility] JUAN REDDING MD Oct 30, 2018 09:27
[2018-10-30] MEDS ORDERED: EPTIFIBATIDE 30 ML ONE (09:55)
--- NOTE | 2018-10-30 10:07 | OPR ---
Date/Time of Note Date/Time of Note DATE: 10/30/18 TIME: 10:07 Operative Report Procedure Date: Oct 30, 2018 Preoperative Diagnosis recent NSTEMI with unsuccessful dilation of ramus lesion. Staged PCI with rotablator Postoperative Diagnosis s/p successful rotablator and PCI of ramus Operation/Procedure Performed see details Surgeon Yulisa Moreno A. Pier Hand co-operators as above Anesthesia Type: moderate sedation Estimated Blood Loss: minimal Transfusion none Specimen none Grafts/Implants none Complications none Procedure Description Procedure Date:10/30/2018 Hall Porter/surgeon: Courtney Moreno MD. Procedures Performed: 1)Left heart catheterization with selective left coronary angiography. 2)Left ventricle angiography 3)Atherectomy (rotablator) and balloon angioplasty and stenting of the prox ramus with a Synergy 2.25 x 28 stent. Pre-operative Diagnosis:recent NSTEMI with unsuccessful dilation of ramus lesion. Staged PCI with rotablator Post-operative Diagnosis:s/p successful atherectomy/rotablator with PCI of Ramus Indications: 48 yo F with recent admission for NSTEMI s/p unsuccessful PCI of ramus due to non dilateable lesion. Same hospitalization she had PCI of her OM. Now she presents with recurrent symptoms and staged PCI with atherectomy Description of Procedure: After informed consent, the patient was brought to the cardiac catheterization lab. The procedure site was prepped and draped in usual manner. The patient was premedicated with versed 1 mg and fentanyl 25 mcg. 8 mL lidocaine was injected into the right groin. Next using the Seldinger technique and with micropuncture access, the 7 montserratian sheath was inserted into the right femoral artery. Next using the JL4 guide, selective angiography of the left coronary arteries were obtained. The decision was made to proceed with PCI of the Ramus as planned. A 7 montserratian JL 4 guide was advanced and engaged into the Cx artery. After appropriate anticoagulation and antiplatelets were given, the rotablator angioplasty wire was advanced past the lesion. Next the 1.25 chanel was tested outside the body and advanced to the lesion. 4 separate runs were utilized to perform successful atherectomy. IC NTG and verapamil were used after each run. Angiography revealed TONIA 3 flow. Next the 2.0 X 12 balloon was used to dilate the lesion times 3 at a maximum of 8 ean. Subsequently, the Synergy 2.25 x 28 stent was advanced to the lesion and deployed at 12 ean. The NC balloon would not cross into the stent due to the floppy wire so a BMW was used as a felisha. Next the stent was post dilated (after the rotablator wire was removed) with the 2.5 X 8 noncompliant balloon times 4 at a maximum of 14 ean. Final angiography revealed TONIA 3 flow, no edge dissection, and appropriate stent expansion. Next all equipment was removed and hemostasis was achieved by manual compression as right femoral angiography revealed a high bifurcation and the sheath at the bifurcation of the common femoral. Findings: Anatomy/Hemodynamics: Separate coronary ostia LAD: mid-distal 40% Ramus: prox 90% lesion Circumflex: luminal irregularities Obtuse marginal: bifurcating vessel with patent prox stent, inferior vessel jailed by stent with TONIA 3 flow and 80% lesion improved from prior Contrast used:160 mL Fluoroscopy time: 19.7 Medications used: Versed 1 Fentanyl 25 Heparin 6000 units Plavix 300mg ASA 325mg IC NTG 200 x 5 IC verapamil 100 x 4 Equipment used: 7 montserratian JL 4 guide Rotablator wire and 1.25 chanel BMW angioplasty wire 2 x 12 balloon Synergy 2.25 x 28 drug eluting stent 2.5 x 8 noncompliant balloon Estimated blood loss<10 mL. Specimen: none Grafts/implants: none Complications: none Assessment: CAD/NSTEMI: Staged PCI for nondilateable Ramus lesion with successful atherectomy/PCI of ramus Plan: -continue current meds including ASA and plavix COURTNEY MORENO Oct 30, 2018 10:07
--- NOTE | 2018-10-30 13:17 | PN ---
Date/Time of Note Date/Time of Note DATE: 10/30/18 TIME: 13:17 Objective Vitals Vital Signs Date Temp Pulse Resp B/P (MAP) Pulse Ox O2 O2 Flow FiO2 Time Delivery Rate 10/30/18 61 12:00 10/30/18 97.9 18 178/73 98 Room Air 07:14 (108) Intake and Output 10/29/18 10/29/18 10/30/18 1515:00 23:00 07:00 IntakeIntake Total 525 ml BalanceBalance 525 ml Results Result Diagram: 10/30/18 0644 10/30/18 0644 Medications Medications Current Medications IV Flush (NS 3 ml) 3 ml PER PROTOCOL IV ; Start 10/29/18 at 23:30 Ondansetron HCl (Zofran Inj) 4 mg Q6H PRN IV NAUSEA/VOMITING; Start 10/29/18 at 23:30 Acetaminophen (Tylenol Tab) 650 mg Q6H PRN PO .PAIN 1-3 OR TEMP; Start 10/29/18 at 23:30 Acetaminophen/ Hydrocodone Bitart ([place] (5/325)) 1 tab Q6H PRN PO .MOD PAIN 4- 6; Start 10/29/18 at 23:30 Morphine Sulfate (morphine) 2 mg Q4H PRN IV .SEVERE PAIN 7-10; Start 10/29/18 at 23:30 Docusate Sodium (Colace) 100 mg Q12H PRN PO .CONSTIPATION; Start 10/29/18 at 23:30 Magnesium Hydroxide (Milk Of Mag) 30 ml DAILY PRN PO .CONSTIPATION; Start 10/29/18 at 23:30 Heparin Sodium (Porcine) (Heparin (5000 Units/1ml)) 5,000 unit Q12 SC ; Start 10/30/18 at 09:00 Sodium Chloride 1,000 ml @ 75 mls/hr [id number] IV Last administered on 10/29/18at 23:55; Admin Dose 75 MLS/HR; Start 10/29/18 at 23:23 Lorazepam (Ativan) 0.5 mg Q6H PRN IV ANXIETY; Start 10/29/18 at 23:30 Albuterol/ Ipratropium (Duoneb) 3 ml Q4H RESP THERAPY PRN HHN SHORTNESS OF BREATH; Start 10/29/18 at 23:30 Hydralazine HCl (Apresoline) 10 mg Q6H PRN IV ELEVATED BLOOD PRESSURE; Start 10/29/18 at 23:30 Nitroglycerin (Nitroglycerin (Sl Tab) 0.4 Mg) 1 tab Q5M PRN SL ANGINA; Start 10/29/18 at 23:30 Diagnostic Test (Pha) (Accu-Chek) 1 ea 02 XX ; Start 10/30/18 at 02:00 Insulin Aspart (Novolog Insulin Pen) NOVOLOG *MILD* ALGORI... Q4 SC ; Start 10/30/18 at 01:00 Atorvastatin Calcium (Lipitor) 80 mg HS PO ; Start 10/30/18 at 21:00 Carvedilol (Coreg) 25 mg BID PO ; Start 10/30/18 at 09:00 Fluticasone Propionate (Flonase 0.05% Nasal) 1 spray BID NASAL ; Start 10/30/18 at 09:00 Insulin Glargine (Lantus) 28 units DAILY@2000 SC ; Start 10/30/18 at 20:00 Loratadine (Claritin) 10 mg DAILY PO ; Start 10/30/18 at 09:00 Pantoprazole (Protonix Tab) 40 mg DAILY@06 PO Last administered on 10/30/18at 06:01; Admin Dose 40 MG; Start 10/30/18 at 06:00 Aspirin (Aspirin) 81 mg DAILY PO ; Start 10/30/18 at 09:00 Lisinopril (Zestril) 10 mg DAILY PO ; Start 10/30/18 at 09:00 Clopidogrel Bisulfate (plaVIX) 75 mg DAILY PO ; Start 10/31/18 at 09:00 Miscellaneous Information (* Miscellaneous Pharmacy Order) HOLD all METFORMIN ... ONCE XX ; Start 10/30/18 at 10:30; Stop 11/01/18 at 10:29 VTE Prophylaxis SCD applied (from Ns): No SCD contraindication: other Lines/Catheters IV Catheter Type: Pollock in Place: No Assessment/Plan Hospital Course This is a short progress note as patient H&P was done earlier this morning, patient had successful Rotablator procedure, will monitor in the ICU, plan discharge plan is for tomorrow if patient is stable. LYNSEY WILD Oct 30, 2018 13:17
[2018-10-30] MEDS: LORATADINE 10 MG TAB PO SCH (13:48)
[2018-10-30] MEDS: LISINOPRIL 10 MG TAB PO SCH (13:49)
[2018-10-30] MEDS: FLUTICASONE 0.05% 16 GM NAS SPRAY NASAL SCH ×2 (13:49→20:41)
[2018-10-30] MEDS: SOD CHLORIDE 0.45% 1,000 ML IV SCH (14:05)
[2018-10-30] MEDS ORDERED: INSULIN GLARGINE [LANTus] (100 UNITS/ML) SYG SC SCH ×2 (20:00→21:00)
[2018-10-30] MEDS ORDERED: ATORVASTATIN 80 MG TAB PO SCH (21:00)
[2018-10-31] VITALS (25 sets, daily range): BP systolic 92–158; BP diastolic 58–81; PULSE 76–194; RESP 10–20
[2018-10-31] MEDS: ACCU-CHEK XX SCH (01:35)
[2018-10-31] MEDS: SOD CHLORIDE 0.45% 1,000 ML IV SCH (01:39)
[2018-10-31] MEDS: PANTOPRAZOLE (EC) 40 MG TAB PO SCH (05:52)
[2018-10-31] MEDS: INSULIN ASPART [NOVOLOG] 3 ML PEN SC SCH ×3 (07:58→18:43)
[2018-10-31] MEDS ORDERED: ASPI-831 PO (08:59)
[2018-10-31] MEDS ORDERED: ATOR-2 PO (08:59)
[2018-10-31] MEDS ORDERED: CARV25TA79 PO (08:59)
[2018-10-31] MEDS ORDERED: CLOP75TA28 PO (08:59)
[2018-10-31] MEDS ORDERED: LISI10TA2 PO (08:59)
[2018-10-31] MEDS ORDERED: CLOPIDOGREL 75 MG TAB PO SCH (09:00)
--- NOTE | 2018-10-31 09:02 | PDOCDIS ---
Discharge Instructions CONDITION [id number] Patient Condition: [id number] Stable FOLLOW UP/APPOINTMENTS Follow-up Plan 1. Please follow-up with your primary care provider as well as transcriptionist, Dr. Moreno, within 1 week 2. Please continue all previous medications except for isosorbide mononitrate, please stop Imdur or isosorbide mononitrate. 3. You have received successful stent of your coronary arteries. LYNSEY WILD Oct 31, 2018 09:02
--- NOTE | 2018-10-31 09:05 | DS ---
Date/Time of Note Date/Time of Note DATE: 10/31/18 TIME: 09:04 Discharge Summary Admission/Discharge Info Admit Date/Time Oct 29, 2018 at 23:07 Discharge Date/Time Patient Condition: Stable Hospital Course Patient is a female the past medical history significant for coronary artery disease, hypothyroidism, hypertension, dyslipidemia, diabetes who presents to [facility] for elective Rotablator procedure. Patient has successful Rotablator procedure PCI of the coronary arteries and received stenting. Patient was monitored overnight in the ICU and is feeling well with absolutely no chest pain. Patient will be discharged to follow-up with cardiology as well as primary care physician within 1 week. Patient is to stop patient's Imdur. Discharge diagnosis Coronary artery disease, status post stenting of coronary arteries Hypothyroidism Hypertension Dyslipidemia Diabetes mellitus Home Meds Active Scripts Clopidogrel Bisulfate (Clopidogrel) 75 Mg Tablet, 75 MG PO DAILY for 30 Days, #30 TAB 2 Refills Prov:LYNSEY WILD 10/31/18 Lisinopril* (Lisinopril*) 10 Mg Tablet, 10 MG PO DAILY, #30 TAB 2 Refills Prov:LYNSEY WILD 10/31/18 Aspirin (Aspirin) 81 Mg Chew, 81 MG PO DAILY for 30 Days, #30 TAB 2 Refills Prov:LYNSEY WILD 10/31/18 Carvedilol* (Carvedilol*) 25 Mg Tablet, 25 MG PO BID for 30 Days, #60 TAB 2 Refills Prov:LYNSEY WILD 10/31/18 Atorvastatin* (Atorvastatin*) 80 Mg Tablet, 80 MG PO HS for 30 Days, #30 TAB 2 Refills Prov:LYNSEY WILD 10/31/18 Methimazole* (Methimazole*) 5 Mg Tablet, 5 MG PO DAILY for 30 Days, #30 TAB Prov:LYNSEY WILD 10/14/18 Fluticasone Propionate (Flonase Allergy Relief) 9.9 Ml [place].susp, 1 SPRAY NASAL BID, #1 BOTTLE TO EACH NOSTRIL Prov:MARIAN LAGUNAS MD 03/07/18 Reported Medications Loratadine* (Loratadine*) 10 Mg Tablet, 10 MG PO DAILY 10/10/18 Insulin Glargine,Hum.rec.anlog (Basaglar Kwikpen U-100) 100 Unit/1 Ml Insuln.pen, 28 UNIT SC QHS, EA 10/10/18 Omeprazole* (Omeprazole*) 20 Mg Capsule., 20 MG PO DAILY, #30 CAP 10/10/16 Metformin* (Glucophage*) 1,000 Mg Tablet, 1000 MG PO BID, TAB 07/01/14 Glyburide* (Diabeta*) 5 Mg Tablet, 5 MG PO BID 11/01/10 Discontinued Scripts Clopidogrel Bisulfate (Clopidogrel) 75 Mg Tablet, 75 MG PO DAILY, #34 TAB Please take 4 tablets at 6pm today. Please take 1 tablet daily starting tomorrow. Prov:LYNSEY WILD 10/14/18 Isosorbide Mononitrate* (Isosorbide Mononitrate*) 60 Mg Tab.er.24h, 60 MG PO DAILY for 30 Days, #30 Prov:LYNSEY WILD 10/14/18 Follow-up Plan 1. Please follow-up with your primary care provider as well as mainspring barrel assembly cleaner, Dr. Moreno, within 1 week 2. Please continue all previous medications except for isosorbide mononitrate, please stop Imdur or isosorbide mononitrate. 3. You have received successful stent of your coronary arteries. Primary Care Provider Not On Staff Doctor Time spent on discharge: > 30 minutes Pending Labs Laboratory Tests Test 10/30/18 11:49 10/30/18 12:49 10/30/18 14:12 10/30/18 16:10 Bedside 156 130 Glucose mg/dL (70-220) mg/dL (70-220) Prothrombin 12.4 12.6 Time Sec (11.9-14.9 Sec (11.9-14.9 ) ) Prothrombin 1.0 1.0 Time Ratio INR 0.91 0.93 International Normalized Rati o Activated 61.3 28.1 Partial Thrombo Sec (23.0-35.0 Sec (23.0-35.0 plast Time ) ) Test 10/30/18 18:41 10/30/18 20:51 10/31/18 01:40 10/31/18 04:35 Bedside 191 268 189 Glucose mg/dL (70-220) mg/dL (70-220) mg/dL (70-220) White Blood 10.7 Count 10^3/ul (4.8-1 0.8) Red Blood 3.71 Count 10^6/ul (4.20- 5.40) Hemoglobin 9.7 g/dl (12.0-16. 0) Hematocrit 30.5 % (37.0-47.0) Mean 82.2 Corpuscular fl (82.0-101.0 Volume ) Mean 26.1 Corpuscular pg (29.0-33.0) Hemoglobin Mean 31.8 Corpuscular g/dl (32.0-37. Hemoglobin Conc 0) ent Red Cell 13.8 Distribution % (11.5-14.5) Width Platelet Count 324 10^3/UL (140-4 15) Mean Platelet 11.5 Volume fl (7.4-10.4) Immature 0.300 Granulocytes % % (0.001-0.429 ) Neutrophils % 67.5 % (39.0-77.0) Lymphocytes % 21.6 % (15.0-51.0) Monocytes % 7.5 % (0.0-11.0) Eosinophils % 2.9 % (0.0-7.0) Basophils % 0.2 % (0.0-2.0) Nucleated Red 0.0 Blood Cells % /100WBC (0.0-0 .0) Immature 0.030 Granulocytes # 10^3/ul (0.0-0 .031) Neutrophils # 7.2 10^3/ul (1.6-7 .5) Lymphocytes # 2.3 10^3/ul (0.8-2 .9) Monocytes # 0.8 10^3/ul (0.3-0 .9) Eosinophils # 0.3 10^3/ul (0.0-0 .5) Basophils # 0.0 10^3/ul (0.0-0 .1) Nucleated Red 0.0 Blood Cells # 10^3/ul (0.0-0 .0) Sodium Level 138 mmol/L (135-14 4) Potassium 4.0 Level mmol/L (3.5-5. 1) Chloride Level 101 mmol/L (97-110 ) Carbon Dioxide 26 Level mmol/L (21-31) Anion Gap 11 (5-13) Blood Urea 14 Nitrogen mg/dl (7-20) Creatinine 0.87 mg/dl (0.44-1. 00) Est Glomerular > 60 Filtrat mL/min (>60) Rate mL/min Glucose Level 168 mg/dl (70-220) Calcium Level 9.3 mg/dl (8.4-10. 2) Phosphorus 4.1 Level mg/dl (2.5-4.9 ) Magnesium 1.8 Level mg/dl (1.7-2.5 ) Test 10/31/18 07:55 Bedside 167 Glucose mg/dL (70-220) Microbiology Date/Time Source Procedure Growth Status 10/30/18 16:00 Nares MRSA Screen - Preliminary Screening in process Resulted LYNSEY WILD Oct 31, 2018 09:05
[2018-10-31] MEDS: LISINOPRIL 10 MG TAB PO SCH (09:59)
[2018-10-31] MEDS: LORATADINE 10 MG TAB PO SCH (09:59)
[2018-10-31] MEDS: ASPIRIN 81 MG TAB PO SCH (10:00)
[2018-10-31] MEDS: HEPARIN 5,000 UNIT/1 ML VIAL SC SCH (10:02)
[2018-10-31] MEDS: FLUTICASONE 0.05% 16 GM NAS SPRAY NASAL SCH (10:04)
[2018-10-31] MEDS ORDERED: CIPR500T4 PO (13:52)
[2018-10-31] MEDS ORDERED: CIPROFLOXACIN 500 MG TAB PO SCH ×2 (14:00)
--- NOTE | 2018-10-31 17:10 | CONS ---
Assessment/Plan Assessment/Plan Hospital Course (Demo Recall) CAD with recent NSTEMI: s/p cath with disease of Ramus and bifurcating OM. Ramus was ballooned but did not expand so will need a rotablator. s/p successful PCI of OM bifurcation 10/13/18. Now status post atherectomy/PCI of ramus 10/30/18. Hyperthyroidism Hypertension Dyslipidemia Diabetes mellitus --ticagrelor 90mg BID and aspirin 81mg daily -carvedilol 25mg BID -lisinopril 10mg -atorvastatin 80mg daily Stable for discharge from cardiac standpoint. Consultation Date/Type/Reason Admit Date/Time Oct 29, 2018 at 23:07 Initial Consult Date 10/30/18 Type of Consult Cardiology Date/Time of Note DATE: 10/31/18 TIME: 17:08 24 HR Interval Summary Free Text/Dictation No acute events. No chest pain or shortness of breath. Detailed Summary Additional Comments 14 point review of systems without changes. Exam/Review of Systems Vital Signs Vitals Vital Signs Date Temp Pulse Resp B/P (MAP) Pulse Ox O2 O2 Flow FiO2 Time Delivery Rate 10/31/18 77 16:00 10/31/18 19 154/78 99 Room Air 16:00 (103) 10/31/18 97.9 12:00 Intake and Output 10/30/18 10/30/18 10/31/18 1515:00 23:00 07:00 IntakeIntake Total 135 ml 640 ml 550 ml OutputOutput Total 500 ml 950 ml 750 ml BalanceBalance -365 ml -310 ml -200 ml Labs Result Diagram: 10/31/18 0435 10/31/18 0435 Results 24hrs Laboratory Tests Test 10/30/18 18:41 10/30/18 20:51 10/31/18 01:40 10/31/18 04:35 Bedside Glucose 191 268 H 189 White Blood Count 10.7 Red Blood Count 3.71 L Hemoglobin 9.7 L Hematocrit 30.5 L Mean Corpuscular Volume 82.2 Mean Corpuscular 26.1 L Hemoglobin Mean Corpuscular 31.8 L Hemoglobin Concent Red Cell Distribution 13.8 Width Platelet Count 324 Mean Platelet Volume 11.5 H Immature Granulocytes % 0.300 Neutrophils % 67.5 Lymphocytes % 21.6 Monocytes % 7.5 Eosinophils % 2.9 Basophils % 0.2 Nucleated Red Blood 0.0 Cells % Immature Granulocytes # 0.030 Neutrophils # 7.2 Lymphocytes # 2.3 Monocytes # 0.8 Eosinophils # 0.3 Basophils # 0.0 Nucleated Red Blood 0.0 Cells # Sodium Level 138 Potassium Level 4.0 Chloride Level 101 Carbon Dioxide Level 26 Anion Gap 11 Blood Urea Nitrogen 14 Creatinine 0.87 Est Glomerular Filtrat > 60 Rate mL/min Glucose Level 168 Calcium Level 9.3 Phosphorus Level 4.1 Magnesium Level 1.8 Test 10/31/18 07:55 10/31/18 12:00 10/31/18 12:28 Bedside Glucose 167 250 H Urine Color STRAW Urine Clarity CLEAR Urine pH 7.0 Urine Specific [place] 1.004 Urine Ketones NEGATIVE Urine Nitrite NEGATIVE Urine Bilirubin NEGATIVE Urine Urobilinogen NEGATIVE Urine Leukocyte Esterase 1+ H Urine Microscopic RBC 0 Urine Microscopic WBC 24 H Urine Bacteria FEW A Urine Hemoglobin 3+ H Urine Glucose 1+ H Urine Total Protein NEGATIVE Medications Medications Current Medications IV Flush (NS 3 ml) 3 ml PER PROTOCOL IV ; Start 10/29/18 at 23:30 Ondansetron HCl (Zofran Inj) 4 mg Q6H PRN IV NAUSEA/VOMITING; Start 10/29/18 at 23:30 Acetaminophen (Tylenol Tab) 650 mg Q6H PRN PO .PAIN 1-3 OR TEMP; Start 10/29/18 at 23:30 Acetaminophen/ Hydrocodone Bitart ([place] (5/325)) 1 tab Q6H PRN PO .MOD PAIN 4- 6; Start 10/29/18 at 23:30 Morphine Sulfate (morphine) 2 mg Q4H PRN IV .SEVERE PAIN 7-10; Start 10/29/18 at 23:30 Docusate Sodium (Colace) 100 mg Q12H PRN PO .CONSTIPATION; Start 10/29/18 at 23:30 Magnesium Hydroxide (Milk Of Mag) 30 ml DAILY PRN PO .CONSTIPATION; Start 10/29/18 at 23:30 Heparin Sodium (Porcine) (Heparin (5000 Units/1ml)) 5,000 unit Q12 SC Last administered on 10/31/18at 10:02; Admin Dose 5,000 UNIT; Start 10/30/18 at 09:00 Lorazepam (Ativan) 0.5 mg Q6H PRN IV ANXIETY; Start 10/29/18 at 23:30 Albuterol/ Ipratropium (Duoneb) 3 ml Q4H RESP THERAPY PRN HHN SHORTNESS OF BREATH; Start 10/29/18 at 23:30 Hydralazine HCl (Apresoline) 10 mg Q6H PRN IV ELEVATED BLOOD PRESSURE Last administered on 10/30/18 20:41; Admin Dose 10 MG; Start 10/29/18 at 23:30 Nitroglycerin (Nitroglycerin (Sl Tab) 0.4 Mg) 1 tab Q5M PRN SL ANGINA; Start 10/29/18 at 23:30 Diagnostic Test (Pha) (Accu-Chek) 1 ea 02 XX ; Start 10/30/18 at 02:00 Atorvastatin Calcium (Lipitor) 80 mg HS PO Last administered on 10/30/18 20:40; Admin Dose 80 MG; Start 10/30/18 at 21:00 Carvedilol (Coreg) 25 mg BID PO Last administered on 10/31/18 09:59; Admin Dose 25 MG; Start 10/30/18 at 09:00 Fluticasone Propionate (Flonase 0.05% Nasal) 1 spray BID NASAL Last administered on 10/31/18 10:04; Admin Dose 1 SPRAY; Start 10/30/18 at 09:00 Loratadine (Claritin) 10 mg DAILY PO Last administered on 10/31/18 09:59; Admin Dose 10 MG; Start 10/30/18 at 09:00 Pantoprazole (Protonix Tab) 40 mg DAILY@06 PO Last administered on 10/31/18 05:52; Admin Dose 40 MG; Start 10/30/18 at 06:00 Aspirin (Aspirin) 81 mg DAILY PO Last administered on 10/31/18 10:00; Admin Dose 81 MG; Start 10/30/18 at 09:00 Lisinopril (Zestril) 10 mg DAILY PO Last administered on 10/31/18 09:59; Admin Dose 10 MG; Start 10/30/18 at 09:00 Clopidogrel Bisulfate (plaVIX) 75 mg DAILY PO Last administered on 10/31/18 10:00; Admin Dose 75 MG; Start 10/31/18 at 09:00 Miscellaneous Information (* Miscellaneous Pharmacy Order) HOLD all METFORMIN ... ONCE XX ; Start 10/30/18 at 10:30; Stop 11/01/18 at 10:29 Insulin Aspart (Novolog Insulin Pen) NOVOLOG *MILD* ALGORITHM WITH MEALS BEDTIME SC Last administered on 10/31/18at 12:43; Admin Dose 3 UNIT; Start 10/30/18 at 21:00 Insulin Glargine (Lantus) 28 units DAILY@2000 SC Last administered on 10/30/18at 21:03; Admin Dose 28 UNITS; Start 10/30/18 at 21:00 Ciprofloxacin (Cipro) 500 mg BID@06,18 PO Last administered on 10/31/18at 14:27; Admin Dose 500 MG; Start 10/31/18 at 14:00 JOCELINE DAVEY MD Oct 31, 2018 17:10
== END 2018-10-31 18:50 | disposition home or self-care (01) ==
LOC: E/R 21:15 → INTOOBSV 23:07 → TEL 23:07 → EDBEDREQ 10-30 00:05 → ICU 10-30 10:15
PROVIDERS: ADMIT Hospitalist; ATTEND Internal Medicine
DX: I25.110 Atherosclerotic heart disease of native coronary artery with unstable angina pectoris (principal); I10 Essential (primary) hypertension; E78.5 Hyperlipidemia, unspecified; E11.9 Type 2 diabetes mellitus without complications; E03.9 Hypothyroidism, unspecified; Z79.4 Long term (current) use of insulin; Z79.82 Long term (current) use of aspirin; Z79.02 Long term (current) use of antithrombotics/antiplatelets
CPT/HCPCS: 36415; 71045; 80048; 80061; 81001; 82550; 82553; 82962; 83036; 83735; 84100; 84439; 84443; 84484; 85025; 85610; 85730; 87081; 92933; 93005; 93454; C1724; C1725; C1769; C1874; C1894; J0360; J1327; J1644; J1815; J2250; J3010; J7030; Q9967; Z7500; Z7502; Z7610; 99217; G0378

== ENCOUNTER 2019-01-14 05:44 | Emergency (ER) | payer OTHER ==
[~2019-01-14] VITALS: Ht 165.1 cm; Wt 81.0 kg
[~2019-01-14 05:44] MED LIST changes: +AZIT250T PO; +BENZ-6 PO; +CIPR500T4 PO; -CLOP75TA27 PO; +CLOP75TA28 PO; +D-ME473S2 PO; -ISOS60TA PO; +PSEU-79 PO
[2019-01-14 05:50] VITALS: BP 166/86; PULSE 93; RESP 18; Ht 165.1 cm; Wt 81.0 kg
== END 2019-01-14 06:38 | disposition home or self-care (01) ==
LOC: FTE 05:44
DX: R05 Cough (principal); I10 Essential (primary) hypertension; I25.10 Atherosclerotic heart disease of native coronary artery without angina pectoris; E11.9 Type 2 diabetes mellitus without complications; Z79.4 Long term (current) use of insulin; Z79.82 Long term (current) use of aspirin
CPT/HCPCS: 99283